=== PATIENT | female | born 1980 | race Caucasian/White ===

== ENCOUNTER → 2017-12-16 | Outpatient (CLI) | payer MEDICAID ==
--- NOTE | 2017-12-20 09:01 | MM ---
Reason for exam: screening (asymptomatic). Last mammogram was performed 1 year and 1 month ago. History: Patient had first child at age 29. Family history of breast cancer in mother, breast cancer in maternal grandmother, breast cancer in paternal grandmother, and breast cancer in 2 maternal aunts. Physical Findings: A clinical breast exam by your physician is recommended on an annual basis and results should be correlated with mammographic findings. MG 3D Screening Mammo W/Cad Bilateral CC and MLO view(s) were taken. Prior study comparison: November 17, 2016, mammogram, performed at [facility]. October 09, 2015, mammogram, performed at [facility]. There are scattered fibroglandular densities. New nodular density upper outer right breast 7cm from nipple. This finding is changed when compared with previous exams. ASSESSMENT: Incomplete: need additional imaging evaluation, BI-RAD 0 RECOMMENDATION: Special view mammogram of the right breast. If lesion persists on supplemental views, image directed ultrasound is recommended. [facility] will attempt to contact patient to return for supplemental views and ultrasound if indicated.
== END | disposition home or self-care (01) ==
LOC: RADMAMWWP 07:01
PROVIDERS: ATTEND Family Medicine
DX: Z12.31 Encounter for screening mammogram for malignant neoplasm of breast (principal)
CPT/HCPCS: 77063; 77067

== ENCOUNTER → 2018-01-02 | Outpatient (CLI) | payer MEDICAID ==
--- NOTE | 2018-01-02 11:53 | MM ---
Reason for exam: additional evaluation requested from abnormal screening. Last mammogram was performed 1 month ago. History: Patient had first child at age 29. Family history of breast cancer in mother, breast cancer in maternal grandmother, breast cancer in paternal grandmother, and breast cancer in 2 maternal aunts. Physical Findings: Nurse did not find any significant physical abnormalities on exam. MG 3D Work Up W/Cad RT Spot compression CC, spot compression MLO, and ML view(s) were taken of the right breast. Prior study comparison: December 16, 2017, bilateral MG 3d screening mammo w/cad. November 17, 2016, mammogram, performed at [facility]. The breast tissue is heterogeneously dense. This may lower the sensitivity of mammography. Nodule persists upper outer quadrant right breast 7cm from nipple. Ultrasound recommended. These results were verbally communicated with the patient and result sheet given to the patient on 01/02/18. ASSESSMENT: Incomplete: need additional imaging evaluation, BI-RAD 0 RECOMMENDATION: Ultrasound of the right breast.
--- NOTE | 2018-01-02 11:55 | USB ---
Reason for exam: additional evaluation requested from abnormal screening. History: Patient had first child at age 29. Family history of breast cancer in mother, breast cancer in maternal grandmother, breast cancer in paternal grandmother, and breast cancer in 2 maternal aunts. US Breast Workup Limited RT Right breast ultrasound demonstrates a 0.7 x 0.6 x 0.5cm irregular, mixed lesion at 8 o'clock and a 0.7 x 0.6 x 0.3cm oval, mixed lesion at 9 o'clock. These results were verbally communicated with the patient and result sheet given to the patient on 01/02/18. ASSESSMENT: Suspicious, BI-RAD 4 RECOMMENDATION: Aspiration and ultrasound core biopsy of the right breast. Called Dr. Toney with mammographic findings and has scheduled an appointment for the patient for 01/06/18 at 11:[address] Franks. PRELIMINARY REPORT CALLED AND FAXED TO DR. FRANKS ON 01/02/18.
== END | disposition home or self-care (01) ==
LOC: RADMAMWWP 06:57
PROVIDERS: ATTEND Family Medicine
DX: R92.8 Other abnormal and inconclusive findings on diagnostic imaging of breast (principal)
CPT/HCPCS: 77065; 76642; G0279

== ENCOUNTER → 2018-01-10 | Day surgery (SDC) | payer MEDICAID ==
[2018-01-10 13:35] VITALS: RESP 16; BMI 41.1
[2018-01-10 14:48] VITALS: BP 115/81; PULSE 76; TEMP 97.9
--- NOTE | 2018-01-10 14:51 | USB ---
EXAMINATION TYPE: US biopsy breast VAD RT, MG diagnostic mammo RT wo CAD DATE OF EXAM: 01/10/2018 CLINICAL HISTORY: R92.8 ABN MAMMO. Abnormal ultrasound. TECHNIQUE: Ultrasound guided core biopsy of right breast with clip placement and follow-up two-view mammogram. COMPARISON: Right breast mammogram and ultrasound January 02, 2018 and older studies. FINDINGS: The procedure of ultrasound guided core biopsy was explained to the patient. Benefits, alternatives, and risks were discussed. An informed consent was then obtained. The patient was placed in supine positioning for imaging and for the procedure. Preprocedure imaging redemonstrates slightly lobulated but well- defined hypoechoic anechoic lesion with increased through transmission and probable septations measuring up to 7 mm long axis at 8:00 position in the right breast. Smaller similar-appearing lesion is noted at 9:00 position in the deeper tissue. Larger lesion is targeted for sampling. The overlying skin was prepped and draped in usual sterile fashion. Lidocaine buffered with bicarbonate was used as anesthetic into the skin and subcutaneous tissue up to area of concern in the right breast. Under ultrasound guidance, a 12-gauge vacuum assisted biopsy gun device was used to obtain 3 core samples. Following this, a biopsy clip was left in lesion. Lesion became smaller upon sampling. The patient tolerated the procedure well without any immediate complication. The patient was kept in the radiology department for short stay after the procedure and then discharged home in stable condition. Postprocedure mammogram shows clip corresponding to area of mammogram concern without identifiable nodule. IMPRESSION: Successful, uncomplicated ultrasound guided core biopsy of area of concern in the right breast, full pathology results to follow. Low index of suspicion. Favor nonsimple cyst which diminished in size with sampling through the lesion. Pathology Results: Benign BREAST, RIGHT, CORE BIOPSY: FIBROCYSTIC CHANGES INCLUDING CYSTS, FIBROSIS AND ADENOSIS. Recommendation Follow up ultrasound of the right breast in 6 months. GENIA
== END ==
LOC: RADUSWWP 13:22
PROVIDERS: ATTEND Surgery
DX: N60.31 Fibrosclerosis of right breast (principal); N60.21 Fibroadenosis of right breast; R92.8 Other abnormal and inconclusive findings on diagnostic imaging of breast; Z88.6 Allergy status to analgesic agent; Z88.5 Allergy status to narcotic agent; Z91.09 Other allergy status, other than to drugs and biological substances
CPT/HCPCS: 88305; 77065; 19083; A4648; J2001

== ENCOUNTER 2018-01-16 14:39 | Inpatient (IN) | payer MEDICAID ==
[2018-01-16] MEDS ORDERED: KETOROLAC 30 MG/ML 1 ML VIAL IVP STA (14:55)
[2018-01-16] MEDS ORDERED: SODIUM CHLORIDE 0.9% 1,000 ML IV ONE (14:55)
[2018-01-16] MEDS ORDERED: MORPHINE SULFATE 4 MG/0.8 ML SYRINGE (INJ) IVP STA ×4 (14:55→17:30)
--- NOTE | 2018-01-16 14:59 | ED ---
Abdominal Pain HPI - General Chief Complaint: Abdominal Pain Stated Complaint: RLQ pain/Vomiting Time Seen by Provider: 01/16/18 14:49 Source: patient Mode of arrival: ambulatory Limitations: no limitations - History of Present Illness Initial Comments: Patient presents with a chief complaint of right-sided abdominal pain. The patient states that her pain is sharp in nature. Onset was about 12:00. Patient cannot identify any inciting incidences. There are no aggravating or alleviating factors. Timing is been constant. Patient admits to nausea and one episode of vomiting. Bowel movements have been normal. She denies dysuria , vaginal bleeding or vaginal discharge. Patient denies any history of kidney stone. She admits to having her gallbladder removed in the past. - Related Data Home Medications Medication Instructions Recorded Confirmed HYDROcodone/APAP 7.5-325MG [Parnell 1 tab PO BID PRN 01/09/18 01/16/18 7.5-325] Topiramate [Topamax] 50 mg PO BID 01/09/18 01/16/18 Butalb/APAP/Caff 50-325-40Mg 1 tab PO DAILY PRN 01/16/18 01/16/18 [Fioricet 50-325-40] Allergies Allergy/AdvReac Type Severity Reaction Status Date / Time adhesive Allergy Itching, Verified 01/16/18 15:18 REDNESS, BLISTERS propoxyphene Allergy Rash/Hives Verified 01/16/18 15:18 [From Darvocet-N] promethazine HCl AdvReac Hallucinati Verified 01/16/18 15:18 [From Phenergan] ons Review of Systems ROS Statement: Those systems with pertinent positive or pertinent negative responses have been documented in the HPI. ROS Other: All systems not noted in ROS Statement are negative. Gastrointestinal: Reports: abdominal pain, nausea, vomiting Musculoskeletal: Denies: back pain Past Medical History Past Medical History: No Reported History History of Any Multi-Drug Resistant Organisms: None Reported Past Surgical History: Section, Cholecystectomy, Tonsillectomy Additional Past Surgical History / Comment(s): x2 Past Anesthesia/Blood Transfusion Reactions: No Reported Reaction Past Psychological History: No Psychological Hx Reported Smoking Status: Former smoker Past Alcohol Use History: None Reported Past Drug Use History: None Reported General Exam Limitations: no limitations General appearance: alert, in no apparent distress Head exam: Present: atraumatic, normocephalic Eye exam: Present: normal appearance ENT exam: Present: mucous membranes moist Neck exam: Present: normal inspection Respiratory exam: Present: normal lung sounds bilaterally. Absent: respiratory distress Cardiovascular Exam: Present: regular rate, normal rhythm GI/Abdominal exam: Present: soft, tenderness (tenderness in the RLQ ). Absent: distended Rectal exam: Present: deferred Extremities exam: Present: normal inspection Back exam: Absent: CVA tenderness (R), CVA tenderness (L) Neurological exam: Present: alert, oriented X3 Psychiatric exam: Present: normal affect, normal mood Skin exam: Present: warm, dry, intact Course Vital Signs 01/16/18 01/16/18 01/16/18 14:46 16:44 17:18 Temperature 97.3 F L 97.2 F L Pulse Rate 66 56 L 72 Respiratory 20 20 18 Rate Blood Pressure 121/81 132/71 146/81 O2 Sat by Pulse 98 100 96 Oximetry Medical Decision Making - Medical Decision Making Patient presents with chief complaint of right lower quadrant abdominal pain. On initial evaluation, vital signs are stable, patient is [id number] distress secondary to discomfort. Patient is actively vomiting on initial evaluation. Patient has a history of cholecystectomy, considering kidney stone as etiology of patient's symptoms. Patient will be evaluated basic blood work, computed tomography scan of the abdomen and pelvis without contrast. She was given morphine, Toradol, and Zofran. 5:31 PM Lab evaluation of this patient is unremarkable except for hematuria. Computed tomography scan of the abdomen and pelvis shows an 11 mm x 8 mm kidney stone at the proximal ureter just past the ureteropelvic junction. On reexamination, patient states that she is still having severe pain and is nauseated. Patient has had several rounds of antiemetics and pain medications without resolution to an acceptable pain level. I discussed management options with this patient and discussed that the size of her kidney stone is less likely to pass on its own and may require urologic intervention. Patient would like to be admitted for pain and nausea control and IV hydration. I discussed this case with Dr. Deshpande who accepts admission of this patient. Care plan discussed again with the patient and family, she is agreeable. QUESTIONS ARE ANSWERED AT THIS TIME. - Lab Data Result diagrams: 01/16/18 15:05 01/16/18 15:05 Lab Results 01/16/18 01/16/18 01/16/18 Range/Units 15:05 15:05 15:05 WBC 11.2 H (3.8-10.6) k/uL RBC 4.94 (3.80-5.40) m/uL Hgb 14.7 (11.4-16.0) gm/dL Hct 43.6 (34.0-46.0) % MCV 88.2 (80.0-100.0) fL MCH 29.8 (25.0-35.0) pg MCHC 33.8 (31.0-37.0) g/dL RDW 13.3 (11.5-15.5) % Plt Count 300 (150-450) k/uL Neutrophils % 71 % Lymphocytes % 23 % Monocytes % 4 % Eosinophils % 1 % Basophils % 0 % Neutrophils # 7.9 H (1.3-7.7) k/uL Lymphocytes # 2.5 (1.0-4.8) k/uL Monocytes # 0.5 (0-1.0) k/uL Eosinophils # 0.1 (0-0.7) k/uL Basophils # 0.0 (0-0.2) k/uL Sodium 143 (137-145) mmol/L Potassium 4.5 (3.5-5.1) mmol/L Chloride 106 (98-107) mmol/L Carbon Dioxide 22 (22-30) mmol/L Anion Gap 15 mmol/L BUN 14 (7-17) mg/dL Creatinine 0.85 (0.52-1.04) mg/dL Est GFR (CKD-EPI)AfAm >90 (>60 ml/min/1.73 sqM) Est GFR (CKD-EPI)NonAf 87 (>60 ml/min/1.73 sqM) Glucose 102 H (74-99) mg/dL Calcium 9.8 (8.4-10.2) mg/dL Total Bilirubin 0.4 (0.2-1.3) mg/dL AST 17 (14-36) U/L ALT 33 (9-52) U/L Alkaline Phosphatase 87 (38-126) U/L Total Protein 7.6 (6.3-8.2) g/dL Albumin 4.7 (3.5-5.0) g/dL Lipase 62 (23-300) U/L HCG, Qual Not Detected Urine Color Yellow Urine Appearance Cloudy H (Clear) Urine pH 5.5 (5.0-8.0) Ur Specific Reagan 1.025 (1.001-1.035) Urine Protein 1+ H (Negative) Urine Glucose (UA) Negative (Negative) Urine Ketones Negative (Negative) Urine Blood Large H (Negative) Urine Nitrite Negative (Negative) Urine Bilirubin Negative (Negative) Urine Urobilinogen 2.0 (<2.0) mg/dL Ur Leukocyte Esterase Negative (Negative) Urine RBC 51 H (0-5) /hpf Urine WBC 2 (0-5) /hpf Ur Squamous Epith Cells 3 (0-4) /hpf Urine Bacteria Occasional H (None) /hpf Hyaline Casts 11 H (0-2) /lpf Granular Casts 6 (0) /lpf Urine Mucus Many H (None) /hpf Disposition Clinical Impression: Intractable pain, Nausea and vomiting, Ureterolithiasis Disposition: ADMITTED IP TO THIS [facility] Condition: Good Is patient prescribed a controlled substance at d/c from ED?: No Referrals: Tahir Toney MD [Primary Care Provider] - 1-2 days Decision to Admit Reason: Admit from EC - Out of Hospital Transfer - Req. Specs Out of Hospital Transfer - Requested Specifics: Other Non-Acute
[2018-01-16] MEDS: ONDANSETRON 4 MG/2 ML VIAL IVP STA (15:11)
[2018-01-16 15:21] LABS: Basophils % (A) 0 %; Eosinophils # (A) 0.1 k/uL (0-0.7); Eosinophils % (A) 1 %; HCT 43.6 % (34.0-46.0); HGB 14.7 gm/dL (11.4-16.0); Lymphocytes # (A) 2.5 k/uL (1.0-4.8); Lymphocytes % (A) 23 %; MCH 29.8 pg (25.0-35.0); MCHC 33.8 g/dL (31.0-37.0); MCV 88.2 fL (80.0-100.0); Mean Platelet Volume 6.6; Monocytes # (A) 0.5 k/uL (0-1.0); Monocytes % (A) 4 %; Neutrophils # (A) 7.9 k/uL (1.3-7.7); Neutrophils % (A) 71 %; Platelet Count 300 k/uL (150-450); RBC 4.94 m/uL (3.80-5.40); RDW 13.3 % (11.5-15.5); WBC 11.2 k/uL (3.8-10.6)
[2018-01-16 15:31] LABS: ALT 33 U/L (9-52); AST 17 U/L (14-36); Albumin 4.7 g/dL (3.5-5.0); Alkaline Phosphatase 87 U/L (38-126); Anion Gap 15 mmol/L; Blood Urea Nitrogen 14 mg/dL (7-17); Calcium 9.8 mg/dL (8.4-10.2); Carbon Dioxide 22 mmol/L (22-30); Chloride 106 mmol/L (98-107); Glucose 102 mg/dL (74-99); Lipase 62 U/L (23-300); Potassium 4.5 mmol/L (3.5-5.1); Sodium 143 mmol/L (137-145); Total Bilirubin 0.4 mg/dL (0.2-1.3); Total Protein 7.6 g/dL (6.3-8.2)
[2018-01-16] MEDS ORDERED: LORazepam 2 MG/ML INJ IV STA (15:48)
[2018-01-16 15:51] LABS: HCG,Qualitative Serum Not Detected
[2018-01-16 16:11] LABS: Appearance,Urine Cloudy (Clear); Bacteria,Urine Occasional /hpf; Bilirubin,Urine Negative (Negative); Blood,Urine Large (Negative); Color,Urine Yellow; Glucose,Urine (UA) Negative (Negative); Granular Casts,Urine 6 /lpf (0); Hyaline Casts,Urine 11 /lpf (0-2); Ketones,Urine Negative (Negative); Leukocyte Esterase,Urine Negative (Negative); Mucus,Urine Many /hpf; Nitrite,Urine Negative (Negative); PH, Urine 5.5 (5.0-8.0); Protein,Urine 1+ (Negative); RBC,Urine 51 /hpf (0-5); Specific Gravity,Urine 1.025 (1.001-1.035); Squamous Epithelial Cell,Urine 3 /hpf (0-4); WBC,Urine 2 /hpf (0-5)
--- NOTE | 2018-01-16 16:41 | CT ---
EXAMINATION TYPE: CT renal stones wo con DATE OF EXAM: 01/16/2018 COMPARISON: NONE HISTORY: 37-year-old female right lower quadrant pain with nausea TECHNIQUE: Contiguous axial scanning of the abdomen and pelvis without IV contrast. Coronal and sagit bernadine reconstructions performed. CT DLP: 1129 mGycm Automated exposure control for dose reduction was used. FINDINGS: Heart is normal size without pericardial effusion. Lung bases clear without pleural effusion. Noncontrast appearance of the liver, adrenal glands, spleen, and pancreas show no gross abnormality. Bile duct is dilated at 1.3 cm but shows normal distal tapering. Gallbladder surgically absent. Cluster of tightly packed calculi lower pole left kidney measuring up to 9 mm. There is [id number] hydronephrosis on the right with a 1.1 x 0.8 cm calculus in the upper right ureter just beyond the UPJ. No dilated small bowel, free fluid, or free air. Normal appendix. Mild stool burden. No pericolonic i nflammatory change. Bladder nondistended. Uterus and ovaries are visualized with follicular change. 1.9 cm dominant folli xavi or functional cyst on the right. No abnormal fluid collection in the pelvis or pelvic lymphadenop athy seen. Bones: No osseous destructive process. IMPRESSION: 1. A 1.1 X 0.8 CM CALCULUS IN THE UPPER RIGHT URETER WITH [id number] OBSTRUCTIVE UROPATHY. 2. A TIGHTLY PACKED CLUSTER OF NONOBSTRUCTIVE LEFT RENAL CALCULI MEASURING UP TO 9 MM. 3. BILE DUCT DILATED AT 1.3 CM. PROBABLY CHRONIC IN THIS PATIENT STATUS POST CHOLECYSTECTOMY. THIS CA N BE CORRELATED WITH ALKALINE PHOSPHATASE AND BILIRUBIN LEVELS.
[2018-01-16] MEDS ORDERED: NALOXONE 0.4 MG/ML 1 ML VIAL IV PRN (17:28)
[2018-01-16] MEDS: ONDANSETRON 4 MG/2 ML VIAL IVP PRN ×2 (18:21→22:07)
[2018-01-16] MEDS: oxyCODONE-APAP 5-325MG 1 EACH TAB PO PRN (19:37)
[2018-01-16] MEDS: SODIUM CHLORIDE 0.9% 1,000 ML IV SCH (20:42)
[2018-01-16] MEDS: MORPHINE SULFATE 4 MG/0.8 ML SYRINGE (INJ) IV PRN (22:06)
[2018-01-17] MEDS ORDERED: KETOROLAC 30 MG/ML 1 ML VIAL IVP STA (00:35)
[2018-01-17] MEDS ORDERED: ONDANSETRON 4 MG/2 ML VIAL IVP PRN (00:37)
[2018-01-17] MEDS: MORPHINE SULFATE 4 MG/0.8 ML SYRINGE (INJ) IV PRN ×3 (04:30→20:05)
[2018-01-17] MEDS: SODIUM CHLORIDE 0.9% 1,000 ML IV SCH ×2 (08:11→20:06)
[2018-01-17 08:46] LABS: Basophils % (A) 0 %; Eosinophils # (A) 0.1 k/uL (0-0.7); Eosinophils % (A) 1 %; HCT 37.7 % (34.0-46.0); HGB 12.6 gm/dL (11.4-16.0); Lymphocytes # (A) 1.4 k/uL (1.0-4.8); Lymphocytes % (A) 18 %; MCH 30.1 pg (25.0-35.0); MCHC 33.5 g/dL (31.0-37.0); MCV 89.8 fL (80.0-100.0); Mean Platelet Volume 6.5; Monocytes # (A) 0.4 k/uL (0-1.0); Monocytes % (A) 5 %; Neutrophils % (A) 75 %; Platelet Count 180 k/uL (150-450); RDW 13.2 % (11.5-15.5)
[2018-01-17 09:07] LABS: Anion Gap 11 mmol/L; Blood Urea Nitrogen 17 mg/dL (7-17); Calcium 8.6 mg/dL (8.4-10.2); Carbon Dioxide 22 mmol/L (22-30); Chloride 110 mmol/L (98-107); Glucose 85 mg/dL (74-99); Potassium 3.9 mmol/L (3.5-5.1); Sodium 143 mmol/L (137-145)
[2018-01-17] MEDS: KETOROLAC 30 MG/ML 1 ML VIAL IVP PRN ×3 (09:22→22:23)
--- NOTE | 2018-01-17 10:57 | P.GSHP ---
History of Present Illness H&P Date: 01/17/18 Chief Complaint: Right flank pain secondary to proximal right ureteral calculus The patient is a 37-year-old female who developed the abrupt onset of pain in her right abdomen yesterday at approximately noon. The pain was severe and was associated with nausea and vomiting. She presented to the emergency room for evaluation. White blood count was 11,200. Urinalysis showed microscopic hematuria. Computed tomography scan of the abdomen and pelvis identified a 7 x 10 mm proximal right ureteral calculus with moderate hydronephrosis. A collection of calculi or a trilobed calculus measuring approximately 9 mm in aggregate was noted in a lower pole calyx of the left kidney. The patient's pain was only partially controlled with IV narcotics and she was admitted for further evaluation. The patient has no previous history of urolithiasis. Her family history is significant in that an uncle and several other distant family members have had stones. The patient says she was treated for urinary tract infection approximately 6 weeks ago. She has had sporadic urinary tract infections in the past. She has had no recent gross hematuria or fever. Her pain is located in the right abdomen and right lower quadrant at the present time. - Constitutional Constitutional: Denies fever - Cardiovascular Cardiovascular: Reports palpitations, Denies high blood pressure, Denies lightheadedness, Denies shortness of breath - Respiratory Respiratory: Denies cough, Denies wheezing - Gastrointestinal Gastrointestinal: Reports as per HPI - Genitourinary (Female) Genitourinary: Reports as per HPI, Denies dysuria Past Medical History Past Medical History: Hearing Disorder / Deafness Additional Past Medical History / Comment(s): rt eat deafness, migraines History of Any Multi-Drug Resistant Organisms: None Reported Past Surgical History: Section, Cholecystectomy, Tonsillectomy, Tubal Ligation Additional Past Surgical History / Comment(s): x2, rt breast bx-neg Past Anesthesia/Blood Transfusion Reactions: No Reported Reaction Smoking Status: Former smoker - Past Family History Mother Family Medical History: Cancer Father Additional Family Medical History / Comment(s): born with only 1 kidney and had dillan leg anuerysms Medications and Allergies Home Medications Medication Instructions Recorded Confirmed Type HYDROcodone/APAP 7.5-325MG [Circle 1 tab PO BID PRN 01/09/18 01/16/18 History 7.5-325] Topiramate [Topamax] 50 mg PO BID 01/09/18 01/16/18 History Butalb/APAP/Caff 50-325-40Mg 1 tab PO DAILY PRN 01/16/18 01/16/18 History [Fioricet 50-325-40] Cyclobenzaprine [Flexeril] 10 mg PO HS 01/16/18 01/16/18 History Magnesium Oxide [Magox 400] 400 mg PO BID 01/16/18 01/16/18 History Allergies Allergy/AdvReac Type Severity Reaction Status Date / Time adhesive Allergy Itching, Verified 01/16/18 15:18 REDNESS, BLISTERS propoxyphene Allergy Rash/Hives Verified 01/16/18 15:18 [From Darvocet-N] promethazine HCl AdvReac Hallucinati Verified 01/16/18 15:18 [From Phenergan] ons Surgical - Exam Vital Signs Temp Pulse Resp BP Pulse Ox 97.3 F L 66 20 121/81 98 01/16/18 14:46 01/16/18 14:46 01/16/18 14:46 01/16/18 14:46 01/16/18 14:46 - General well developed, moderate distress, obese - Neck no masses, no lymphadectomy - Respiratory normal respiratory effort, clear to percussion - Cardiovascular Rhythm: regular Abnormal Heart Sounds: no systolic murmur - Abdomen Abdomen: tender (Suprapubic region and right lower quadrant), no organomegaly, no masses Results - Labs 01/17/18 08:10 01/17/18 08:10 Abnormal Lab Results - Last 24 Hours (Table) 01/16/18 01/16/18 01/16/18 Range/Units 15:05 15:05 15:05 WBC 11.2 H (3.8-10.6) k/uL Neutrophils # 7.9 H (1.3-7.7) k/uL Chloride (98-107) mmol/L Glucose 102 H (74-99) mg/dL Urine Appearance Cloudy H (Clear) Urine Protein 1+ H (Negative) Urine Blood Large H (Negative) Urine RBC 51 H (0-5) /hpf Urine Bacteria Occasional H (None) /hpf Hyaline Casts 11 H (0-2) /lpf Urine Mucus Many H (None) /hpf 01/17/18 Range/Units 08:10 WBC (3.8-10.6) k/uL Neutrophils # (1.3-7.7) k/uL Chloride 110 H (98-107) mmol/L Glucose (74-99) mg/dL Urine Appearance (Clear) Urine Protein (Negative) Urine Blood (Negative) Urine RBC (0-5) /hpf Urine Bacteria (None) /hpf Hyaline Casts (0-2) /lpf Urine Mucus (None) /hpf Diabetes panel 01/16/18 01/17/18 Range/Units 15:05 08:10 Sodium 143 143 (137-145) mmol/L Potassium 4.5 3.9 (3.5-5.1) mmol/L Chloride 106 110 H (98-107) mmol/L Carbon Dioxide 22 22 (22-30) mmol/L BUN 14 17 (7-17) mg/dL Creatinine 0.85 0.88 (0.52-1.04) mg/dL Glucose 102 H 85 (74-99) mg/dL Calcium 9.8 8.6 (8.4-10.2) mg/dL AST 17 (14-36) U/L ALT 33 (9-52) U/L Alkaline Phosphatase 87 (38-126) U/L Total Protein 7.6 (6.3-8.2) g/dL Albumin 4.7 (3.5-5.0) g/dL Calcium panel 01/16/18 01/17/18 Range/Units 15:05 08:10 Calcium 9.8 8.6 (8.4-10.2) mg/dL Albumin 4.7 (3.5-5.0) g/dL Pituitary panel 01/16/18 01/17/18 Range/Units 15:05 08:10 Sodium 143 143 (137-145) mmol/L Potassium 4.5 3.9 (3.5-5.1) mmol/L Chloride 106 110 H (98-107) mmol/L Carbon Dioxide 22 22 (22-30) mmol/L BUN 14 17 (7-17) mg/dL Creatinine 0.85 0.88 (0.52-1.04) mg/dL Glucose 102 H 85 (74-99) mg/dL Calcium 9.8 8.6 (8.4-10.2) mg/dL Adrenal panel 01/16/18 01/17/18 Range/Units 15:05 08:10 Sodium 143 143 (137-145) mmol/L Potassium 4.5 3.9 (3.5-5.1) mmol/L Chloride 106 110 H (98-107) mmol/L Carbon Dioxide 22 22 (22-30) mmol/L BUN 14 17 (7-17) mg/dL Creatinine 0.85 0.88 (0.52-1.04) mg/dL Glucose 102 H 85 (74-99) mg/dL Calcium 9.8 8.6 (8.4-10.2) mg/dL Total Bilirubin 0.4 (0.2-1.3) mg/dL AST 17 (14-36) U/L ALT 33 (9-52) U/L Alkaline Phosphatase 87 (38-126) U/L Total Protein 7.6 (6.3-8.2) g/dL Albumin 4.7 (3.5-5.0) g/dL Assessment and Plan (1) Right ureteral calculus Narrative/Plan: In view of the size and location of the patient's proximal right ureteral calculus it is unlikely that the calculus will pass spontaneously. I discussed temporary placement of a right double-J catheter to relieve the patient's pain with eventual treatment via either ureteroscopy with lithotripsy or ESWL. The procedure and risks of the double-J catheter were reviewed and the patient has no further questions. Current Visit: Yes Status: Acute Code(s): N20.1 - CALCULUS OF URETER SNOMED Code(s): 81792505 (2) Intractable pain Current Visit: Yes Status: Acute Code(s): R52 - PAIN, UNSPECIFIED SNOMED Code(s): 31648685
[2018-01-17] MEDS ORDERED: IV FLUID CONTINUATION 1,000 ML IV ONE (11:32)
[2018-01-17] MEDS: ONDANSETRON 4 MG/2 ML VIAL IVP STA (11:36)
[2018-01-17 11:41] LABS: Glucose,Whole Blood 85 mg/dL (75-99)
[2018-01-17] MEDS ORDERED: PROPOFOL 10 MG/ML 20 ML VIAL IV ONE (11:54)
[2018-01-17] MEDS ORDERED: fentaNYL (PF) 50 MCG/ML 2 ML AMP ONE (11:54)
[2018-01-17] MEDS ORDERED: LIDOCAINE 1% INJ 10MG/ML (20 ML MDV) ONE (11:54)
[2018-01-17] MEDS ORDERED: MIDAZOLAM 2 MG/2 ML VIAL ONE (11:54)
--- NOTE | 2018-01-17 12:28 | P.OP ---
Date of Procedure: 01/17/18 Preoperative Diagnosis: Proximal right ureteral calculus Postoperative Diagnosis: Proximal right ureteral calculus Procedure(s) Performed: Cystoscopy with placement of right double-J catheter Implants: 6-Cambodian by 24 cm double-J catheter Anesthesia: MAC Surgeon: Willie Deshpande Estimated Blood Loss (ml): 0 Pathology: none sent Condition: stable Disposition: PACU Indications for Procedure: The patient is a 37-year-old female admitted yesterday for evaluation of severe right flank pain secondary to a 7 x 10 mm proximal right ureteral calculus. The patient's pain has been only partially controllable with IV narcotics and ketorolac. Placement of a double-J catheter is planned for relief of the pain. Description of Procedure: The patient was taken to the operating suite and placed in the dorsal lithotomy position on the fluoroscopy table. Sequential pneumatic compression stockings were applied to the lower legs. Intravenous sedation was given. The perineum was prepped with Betadine soap, painted with Betadine solution and draped in a sterile fashion. The external genitalia and urethral meatus were unremarkable. The 22-Cambodian cystoscope sheath with obturator was passed through the urethra into the bladder. The bladder was examined using the 30 lens. Both ureteral orifice ease were of normal location and configuration. The bladder was free of tumor, foreign body and diverticulum. The calculus in the proximal right ureter was identified via fluoroscopy. A 0.035 straight Glidewire was advanced through the right ureteral orifice, beyond the calculus and into the region of the right renal pelvis. A 6-Cambodian by 24 cm double-J catheter was then advanced over the Glidewire and positioned so that the proximal end coiled in the region of the renal pelvis and the distal end coiled in the bladder. It was initially difficult to advance the which a catheter beyond the calculus as it appeared that the calculus was impacted. After confirming correct position of the double-J catheter the Glidewire was withdrawn and the cystoscope was removed. The patient tolerated procedure well. She may be discharged later in the day if she is comfortable.
[2018-01-17 12:32] VITALS: RESP 16
[2018-01-17] MEDS ORDERED: MORPHINE SULFATE 4MG/4ML SYRG IVP ONE (12:50)
--- NOTE | 2018-01-17 13:24 | FL ---
Fluoroscopy History: RT KIDNEY STONE AND STENT PLACEMENT 7 sec fl, 1 film scanned
[2018-01-17] MEDS: oxyCODONE-APAP 5-325MG 1 EACH TAB PO PRN (15:29)
[2018-01-17] MEDS ORDERED: BUTALB/APAP/CAFF 50-325-40MG TAB PO PRN (16:50)
[2018-01-17] MEDS: TOPIRAMATE 25 MG TAB PO SCH (20:06)
[2018-01-18] MEDS: KETOROLAC 30 MG/ML 1 ML VIAL IVP PRN (05:02)
--- NOTE | 2018-01-18 07:50 | P.DS ---
Providers Date of admission: 01/16/18 17:28 Expected date of discharge: 01/18/18 Attending physician: Willie Deshpande Primary care physician: Tahir Milligan Kut - Discharge Diagnosis(es) (1) Right ureteral calculus The patient is a 37-year-old female admitted for pain control secondary to a 7 x 10 mm proximal right ureteral calculus which had become impacted in the proximal right ureter. The patient was admitted through the emergency room on the evening of 01/16. Her pain persisted and cystoscopy with placement of a right double-J catheter was performed under intravenous sedation on 01/17. She continued to have some pain through the afternoon and evening but by 01/18 was much more comfortable. The patient was afebrile and discharged on the morning of 01/18. It is anticipated that she will have elective treatment of the proximal right ureteral calculus via either ESWL or ureteroscopy with lithotripsy. Both procedures were discussed with the patient but at the time of discharge a decision as to the type of treatment had not yet been made. Current Visit: Yes Status: Acute (2) Intractable pain Current Visit: Yes Status: Acute Patient Condition at Discharge: Good Plan - Discharge Summary Discharge Rx Participant: Yes New Discharge Prescriptions: No Action HYDROcodone/APAP 7.5-325MG [[place] 7.5-325] 1 tab PO BID PRN PRN Reason: Pain Topiramate [Topamax] 50 mg PO BID Butalb/APAP/Caff 50-325-40Mg [Fioricet 50-325-40] 1 tab PO DAILY PRN PRN Reason: Pain Magnesium Oxide [Magox 400] 400 mg PO BID Cyclobenzaprine [Flexeril] 10 mg PO HS Discharge Medication List HYDROcodone/APAP 7.5-325MG [[place] 7.5-325] 1 tab PO BID PRN 01/09/18 [History] Topiramate [Topamax] 50 mg PO BID 01/09/18 [History] Butalb/APAP/Caff 50-325-40Mg [Fioricet 50-325-40] 1 tab PO DAILY PRN 01/16/18 [ History] Cyclobenzaprine [Flexeril] 10 mg PO HS 01/16/18 [History] Magnesium Oxide [Magox 400] 400 mg PO BID 01/16/18 [History] Follow up Appointment(s)/Referral(s): Tahir Toney MD [Primary Care Provider] - 1-2 days Willie Deshpande MD [STAFF PHYSICIAN] - 1 Week
[2018-01-18 08:36] VITALS: BP 101/61; PULSE 66; TEMP 98.1
[2018-01-18] MEDS: TOPIRAMATE 25 MG TAB PO SCH (09:07)
[2018-01-18] MEDS: SODIUM CHLORIDE 0.9% 1,000 ML IV SCH (09:07)
== END 2018-01-18 10:19 | disposition home or self-care (01) | DRG 694 ==
LOC: EC 14:39 → 4MS4W 17:28
PROVIDERS: ADMIT Urology; ATTEND Urology
PROC: 0T768DZ Dilation of Right Ureter with Intraluminal Device, Via Natural or Artificial Opening Endoscopic (ICD-10-PCS; principal; 2018-01-17 10:35)
DX: N13.2 Hydronephrosis with renal and ureteral calculous obstruction (principal); H91.90 Unspecified hearing loss, unspecified ear; R31.29 Other microscopic hematuria; R52 Pain, unspecified; Z87.440 Personal history of urinary (tract) infections; Z86.69 Personal history of other diseases of the nervous system and sense organs; Z87.891 Personal history of nicotine dependence; Z79.899 Other long term (current) drug therapy; Z88.8 Allergy status to other drugs, medicaments and biological substances; Z91.048 Other nonmedicinal substance allergy status; Z79.891 Long term (current) use of opiate analgesic; Z90.49 Acquired absence of other specified parts of digestive tract; Z90.89 Acquired absence of other organs
CPT/HCPCS: 36415; 74150; 80048; 80053; 81001; 81025; 83690; 84703; 85025; 96361; 96374; 96375; 96376; 99285

== ENCOUNTER 2018-01-27 10:35 | Emergency (ER) | payer MEDICAID ==
[2018-01-27 10:58] VITALS: RESP 16
[2018-01-27] MEDS ORDERED: ONDANSETRON 4 MG/2 ML VIAL IVP STA (11:23)
[2018-01-27] MEDS ORDERED: KETOROLAC 30 MG/ML 1 ML VIAL IVP STA (11:23)
[2018-01-27] MEDS ORDERED: SODIUM CHLORIDE 0.9% 1,000 ML IV STA (11:23)
[2018-01-27] MEDS ORDERED: SODIUM CHLORIDE 0.9% 500 ML IV STA (11:23)
[2018-01-27] MEDS: MORPHINE SULFATE 4 MG/ML SYRINGE IVP STA ×2 (12:02→14:01)
[2018-01-27 12:11] LABS: Basophils % (A) 0 %; Eosinophils # (A) 0.2 k/uL (0-0.7); Eosinophils % (A) 3 %; HCT 38.4 % (34.0-46.0); HGB 13.5 gm/dL (11.4-16.0); Lymphocytes # (A) 1.5 k/uL (1.0-4.8); Lymphocytes % (A) 20 %; MCH 30.2 pg (25.0-35.0); MCHC 35.1 g/dL (31.0-37.0); Mean Platelet Volume 6.5; Monocytes # (A) 0.3 k/uL (0-1.0); Monocytes % (A) 4 %; Neutrophils # (A) 5.5 k/uL (1.3-7.7); Neutrophils % (A) 72 %; Platelet Count 205 k/uL (150-450); RBC 4.47 m/uL (3.80-5.40); RDW 13.3 % (11.5-15.5); WBC 7.6 k/uL (3.8-10.6)
[2018-01-27 12:18] LABS: Appearance,Urine Cloudy (Clear); Bacteria,Urine Many /hpf; Bilirubin,Urine Negative (Negative); Blood,Urine Large (Negative); Color,Urine Yellow; Glucose,Urine (UA) Negative (Negative); Ketones,Urine Negative (Negative); Leukocyte Esterase,Urine Large (Negative); Mucus,Urine Rare /hpf; Nitrite,Urine Negative (Negative); PH, Urine 5.5 (5.0-8.0); Protein,Urine 1+ (Negative); RBC,Urine 165 /hpf (0-5); Specific Gravity,Urine 1.011 (1.001-1.035); Squamous Epithelial Cell,Urine 18 /hpf (0-4); Urobilinogen,Urine <2.0 mg/dL (<2.0); WBC,Urine 22 /hpf (0-5)
--- NOTE | 2018-01-27 12:28 | ED ---
General Adult HPI - General Chief complaint: Abdominal Pain Stated complaint: Abdominal pain Time Seen by Provider: 01/27/18 11:01 Source: patient, RN notes reviewed, old records reviewed Mode of arrival: ambulatory Limitations: no limitations - History of Present Illness Initial comments: This is a 37-year-old female to the ER for evaluation. She presents today for evaluation regards to severe right sided right flank pain. History of kidney stones recent lithotripsy. Patient denies any other complaints. She states the pain has not gone away despite surgery. She has been difficulty with urination and is having blood in her urine as well. No fevers - Related Data Home Medications Medication Instructions Recorded Confirmed HYDROcodone/APAP 7.5-325MG [[place] 1 tab PO QID PRN 01/09/18 01/27/18 7.5-325] Butalb/APAP/Caff 50-325-40Mg 1 tab PO DAILY PRN 01/16/18 01/27/18 [Fioricet 50-325-40] Tamsulosin [Flomax] 0.4 mg PO DAILY 01/27/18 01/27/18 Allergies Allergy/AdvReac Type Severity Reaction Status Date / Time adhesive Allergy Itching, Verified 01/27/18 11:26 REDNESS, BLISTERS propoxyphene Allergy Rash/Hives Verified 01/27/18 11:26 [From Darvocet-N] promethazine HCl AdvReac Hallucinati Verified 01/27/18 11:26 [From Phenergan] ons Review of Systems ROS Statement: Those systems with pertinent positive or pertinent negative responses have been documented in the HPI. ROS Other: All systems not noted in ROS Statement are negative. Past Medical History Past Medical History: Hearing Disorder / Deafness Additional Past Medical History / Comment(s): rt eat deafness, migraines History of Any Multi-Drug Resistant Organisms: None Reported Past Surgical History: Section, Cholecystectomy, Tonsillectomy, Tubal Ligation Additional Past Surgical History / Comment(s): x2, rt breast bx-neg Past Anesthesia/Blood Transfusion Reactions: No Reported Reaction Past Psychological History: No Psychological Hx Reported Smoking Status: Former smoker - Past Family History Mother Family Medical History: Cancer Father Additional Family Medical History / Comment(s): born with only 1 kidney and had dillan leg anuerysms General Exam Limitations: no limitations General appearance: alert, in no apparent distress Head exam: Present: atraumatic, normocephalic, normal inspection Eye exam: Present: normal appearance, PERRL, EOMI. Absent: scleral icterus, conjunctival injection, periorbital swelling ENT exam: Present: normal exam, mucous membranes moist Neck exam: Present: normal inspection. Absent: tenderness, meningismus, lymphadenopathy Respiratory exam: Present: normal lung sounds bilaterally. Absent: respiratory distress, wheezes, rales, rhonchi, stridor Cardiovascular Exam: Present: regular rate, normal rhythm, normal heart sounds. Absent: systolic murmur, diastolic murmur, rubs, gallop, clicks GI/Abdominal exam: Present: soft, normal bowel sounds. Absent: distended, tenderness, guarding, rebound, rigid Extremities exam: Present: normal inspection, full ROM, normal capillary refill. Absent: tenderness, pedal edema, joint swelling, calf tenderness Back exam: Present: normal inspection Neurological exam: Present: alert, oriented X3, CN II-XII intact Psychiatric exam: Present: normal affect, normal mood Skin exam: Present: warm, dry, intact, normal color. Absent: rash Course Vital Signs 01/27/18 10:56 Temperature 97.9 F Pulse Rate 62 Respiratory 16 Rate Blood Pressure 129/80 O2 Sat by Pulse 97 Oximetry Medical Decision Making - Medical Decision Making 37 male to the ED co significant pain, kidney stone and post procedure pain, pain is controlled can be discharged home - Lab Data Result diagrams: 01/27/18 11:58 01/27/18 11:58 Lab Results 01/27/18 01/27/18 01/27/18 Range/Units 11:58 11:58 11:58 WBC 7.6 (3.8-10.6) k/uL RBC 4.47 (3.80-5.40) m/uL Hgb 13.5 (11.4-16.0) gm/dL Hct 38.4 (34.0-46.0) % MCV 86.0 (80.0-100.0) fL MCH 30.2 (25.0-35.0) pg MCHC 35.1 (31.0-37.0) g/dL RDW 13.3 (11.5-15.5) % Plt Count 205 (150-450) k/uL Neutrophils % 72 % Lymphocytes % 20 % Monocytes % 4 % Eosinophils % 3 % Basophils % 0 % Neutrophils # 5.5 (1.3-7.7) k/uL Lymphocytes # 1.5 (1.0-4.8) k/uL Monocytes # 0.3 (0-1.0) k/uL Eosinophils # 0.2 (0-0.7) k/uL Basophils # 0.0 (0-0.2) k/uL Sodium 142 (137-145) mmol/L Potassium 3.9 (3.5-5.1) mmol/L Chloride 106 (98-107) mmol/L Carbon Dioxide 25 (22-30) mmol/L Anion Gap 11 mmol/L BUN 13 (7-17) mg/dL Creatinine 0.70 (0.52-1.04) mg/dL Est GFR (CKD-EPI)AfAm >90 (>60 ml/min/1.73 sqM) Est GFR (CKD-EPI)NonAf >90 (>60 ml/min/1.73 sqM) Glucose 99 (74-99) mg/dL Calcium 9.0 (8.4-10.2) mg/dL Total Bilirubin 0.2 (0.2-1.3) mg/dL AST 17 (14-36) U/L ALT 18 (9-52) U/L Alkaline Phosphatase 59 (38-126) U/L Total Protein 6.2 L (6.3-8.2) g/dL Albumin 3.7 (3.5-5.0) g/dL Amylase 42 (30-110) U/L Lipase 41 (23-300) U/L Urine Color Urine Appearance (Clear) Urine pH (5.0-8.0) Ur Specific [place] (1.001-1.035) Urine Protein (Negative) Urine Glucose (UA) (Negative) Urine Ketones (Negative) Urine Blood (Negative) Urine Nitrite (Negative) Urine Bilirubin (Negative) Urine Urobilinogen (<2.0) mg/dL Ur Leukocyte Esterase (Negative) Urine RBC (0-5) /hpf Urine WBC (0-5) /hpf Ur Squamous Epith Cells (0-4) /hpf Urine Bacteria (None) /hpf Urine Mucus (None) /hpf Urine HCG, Qual Not Detected (Not Detectd) 01/27/18 Range/Units 11:58 WBC (3.8-10.6) k/uL RBC (3.80-5.40) m/uL Hgb (11.4-16.0) gm/dL Hct (34.0-46.0) % MCV (80.0-100.0) fL MCH (25.0-35.0) pg MCHC (31.0-37.0) g/dL RDW (11.5-15.5) % Plt Count (150-450) k/uL Neutrophils % % Lymphocytes % % Monocytes % % Eosinophils % % Basophils % % Neutrophils # (1.3-7.7) k/uL Lymphocytes # (1.0-4.8) k/uL Monocytes # (0-1.0) k/uL Eosinophils # (0-0.7) k/uL Basophils # (0-0.2) k/uL Sodium (137-145) mmol/L Potassium (3.5-5.1) mmol/L Chloride (98-107) mmol/L Carbon Dioxide (22-30) mmol/L Anion Gap mmol/L BUN (7-17) mg/dL Creatinine (0.52-1.04) mg/dL Est GFR (CKD-EPI)AfAm (>60 ml/min/1.73 sqM) Est GFR (CKD-EPI)NonAf (>60 ml/min/1.73 sqM) Glucose (74-99) mg/dL Calcium (8.4-10.2) mg/dL Total Bilirubin (0.2-1.3) mg/dL AST (14-36) U/L ALT (9-52) U/L Alkaline Phosphatase (38-126) U/L Total Protein (6.3-8.2) g/dL Albumin (3.5-5.0) g/dL Amylase (30-110) U/L Lipase (23-300) U/L Urine Color Yellow Urine Appearance Cloudy H (Clear) Urine pH 5.5 (5.0-8.0) Ur Specific [place] 1.011 (1.001-1.035) Urine Protein 1+ H (Negative) Urine Glucose (UA) Negative (Negative) Urine Ketones Negative (Negative) Urine Blood Large H (Negative) Urine Nitrite Negative (Negative) Urine Bilirubin Negative (Negative) Urine Urobilinogen <2.0 (<2.0) mg/dL Ur Leukocyte Esterase Large H (Negative) Urine RBC 165 H (0-5) /hpf Urine WBC 22 H (0-5) /hpf Ur Squamous Epith Cells 18 H (0-4) /hpf Urine Bacteria Many H (None) /hpf Urine Mucus Rare H (None) /hpf Urine HCG, Qual (Not Detectd) - Radiology Data Radiology results: report reviewed (US and XR kub is unremarkalbe), image reviewed Disposition Clinical Impression: Abdominal pain, Intractable pain, Ureterolithiasis Disposition: HOME SELF-CARE Condition: Good Instructions: Abdominal Pain (ED) Is patient prescribed a controlled substance at d/c from ED?: No Referrals: Tahir Toney MD [Primary Care Provider] - 1-2 days
[2018-01-27 12:33] LABS: ALT 18 U/L (9-52); AST 17 U/L (14-36); Albumin 3.7 g/dL (3.5-5.0); Alkaline Phosphatase 59 U/L (38-126); Amylase 42 U/L (30-110); Anion Gap 11 mmol/L; Blood Urea Nitrogen 13 mg/dL (7-17); Carbon Dioxide 25 mmol/L (22-30); Chloride 106 mmol/L (98-107); Glucose 99 mg/dL (74-99); Lipase 41 U/L (23-300); Potassium 3.9 mmol/L (3.5-5.1); Sodium 142 mmol/L (137-145); Total Bilirubin 0.2 mg/dL (0.2-1.3); Total Protein 6.2 g/dL (6.3-8.2)
--- NOTE | 2018-01-27 12:51 | US ---
EXAMINATION TYPE: US renals and bladder DATE OF EXAM: 01/27/2018 COMPARISON: CT renal stones January 16, 2018 CLINICAL HISTORY: Pain. recent double J cath placement for stones, lithotripsy through ureter on the right, h/o bilat nephrolithiasis, right side pain EXAM MEASUREMENTS: Right Kidney: 10.5 x 5.3 x 5.4 cm Left Kidney: 10.8 x 5.0 x 5.6 cm Right Kidney: moderate hydronephrosis seen Left Kidney: 1.4cm single versus cluster of renal stones Bladder: wnl Bilateral Jets seen: no No suspicious solid or cystic masses are identified on images saved. The urinary bladder is not gre atly distended. Bilateral ureteral jets are not seen. IMPRESSION: Stable moderate right-sided hydronephrosis not significantly changed from recent CT where there was o bstructing 11 mm proximal ureter calculus. There is redemonstration of cluster of calculi or single l arge calculus lower pole level left kidney without left-sided hydronephrosis. No significant change f rom recent CT.
--- NOTE | 2018-01-27 13:01 | XR ---
EXAMINATION TYPE: XR KUB DATE OF EXAM: 01/27/2018 COMPARISON: 01/27/18 HISTORY: Pain TECHNIQUE: Single supine KUB image of the abdomen is obtained FINDINGS: Small bowel demonstrates no evidence for dilatation or air fluid levels. Gas and fecal material is seen in non-distended colon. No convincing evidence for pneumoperitoneum. Calcifications lower pole left kidney. The lung bases are clear. The osseous structures are intact. IMPRESSION: 1. Overall nonobstructive bowel gas pattern. 2. Calcifications lower pole left kidney.
[2018-01-27 14:16] VITALS: BP 109/66; PULSE 63; TEMP 98.6
== END 2018-01-27 14:24 | disposition home or self-care (01) ==
LOC: EC 10:35
DX: N20.1 Calculus of ureter (principal); H91.91 Unspecified hearing loss, right ear; Z87.891 Personal history of nicotine dependence; Z79.899 Other long term (current) drug therapy; Z88.5 Allergy status to narcotic agent; Z88.8 Allergy status to other drugs, medicaments and biological substances; Z91.09 Other allergy status, other than to drugs and biological substances; Z90.49 Acquired absence of other specified parts of digestive tract; Z84.1 Family history of disorders of kidney and ureter
CPT/HCPCS: 36415; 80053; 82150; 83690; 85025; 81001; 81025; 87086; 74018; 76770; 99285; 96374; 96375 ×2; 96376; 96361; J2270; J2405; J1885

== ENCOUNTER → 2018-05-11 | Outpatient (CLI) | payer MEDICAID | END | disposition home or self-care (01) | LOC: LABWHC1 11:24 | PROVIDERS: ATTEND Family Medicine | DX: Z53.9 Procedure and treatment not carried out, unspecified reason (principal) ==

== ENCOUNTER → 2018-06-22 | Outpatient (CLI) | payer MEDICAID ==
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
== END | disposition home or self-care (01) ==
LOC: RADXRMAIN 11:36
PROVIDERS: ATTEND Family Medicine
DX: M79.642 Pain in left hand (principal); M79.89 Other specified soft tissue disorders

== ENCOUNTER → 2018-08-29 | Outpatient (CLI) | payer MEDICAID ==
--- NOTE | 2018-08-29 10:21 | MM ---
Reason for exam: additional evaluation requested from prior study. Last mammogram was performed 8 months ago. History: Patient had first child at age 29. Family history of breast cancer in mother, breast cancer in maternal grandmother, breast cancer in paternal grandmother, and breast cancer in 2 maternal aunts. Benign US biopsy breast VAD RT of the right breast, January 10, 2018. Physical Findings: Nurse did not find any significant physical abnormalities on exam. MG 3D Diag Mammo W/Cad RT CC and MLO view(s) were taken of the right breast. Prior study comparison: January 10, 2018, right breast MG diagnostic mammo RT wo CAD. January 02, 2018, right breast MG 3d work up w/cad RT. There are scattered fibroglandular densities. No significant new findings when compared with previous films. These results were verbally communicated with the patient and result sheet given to the patient on 08/29/18. ASSESSMENT: Benign, BI-RAD 2 RECOMMENDATION: Return to routine screening mammogram schedule for both breasts. Back on schedule.
== END | disposition home or self-care (01) ==
LOC: RADMAMWWP 08:49
PROVIDERS: ATTEND Family Medicine
DX: R92.8 Other abnormal and inconclusive findings on diagnostic imaging of breast (principal)
CPT/HCPCS: 77061; 77065

== ENCOUNTER → 2019-03-07 | Outpatient (CLI) | payer MEDICAID ==
[2019-03-07 11:51] LABS: African American GFR (CKD) 125.6 (60.0-200.0); Anion Gap 4.2 mmol/L (4.00-12.00); Carbon Dioxide 28.8 mmol/L (21.6-31.8); Potassium 4.8 mmol/L (3.5-5.5)
== END | disposition home or self-care (01) ==
LOC: LABWHC1 06:45
PROVIDERS: ATTEND Family Medicine
DX: R60.9 Edema, unspecified (principal)
CPT/HCPCS: 36415; 80051; 82565; 84520

== ENCOUNTER → 2019-03-14 | Outpatient (CLI) | payer MEDICAID ==
[2019-03-14 16:52] LABS: African American GFR (CKD) 106.1 (60.0-200.0); Anion Gap 7.1 mmol/L (4.00-12.00); Carbon Dioxide 28.9 mmol/L (21.6-31.8); Potassium 4.5 mmol/L (3.5-5.5)
== END | disposition home or self-care (01) ==
LOC: LABWHC1 08:13
PROVIDERS: ATTEND Family Medicine
DX: R60.9 Edema, unspecified (principal)
CPT/HCPCS: 36415; 80051; 82565; 84520

== ENCOUNTER → 2019-09-04 | Outpatient (CLI) | payer MEDICAID ==
--- NOTE | 2019-09-06 13:55 | MM ---
Reason for exam: screening (asymptomatic). Last mammogram was performed 1 year ago. History: Patient had first child at age 29. Family history of breast cancer in mother, breast cancer in maternal grandmother, breast cancer in paternal grandmother, and breast cancer in 2 maternal aunts. Benign US biopsy breast VAD RT of the right breast, January 10, 2018. Took hormonal contraceptives for 25 years. Physical Findings: A clinical breast exam by your physician is recommended on an annual basis and results should be correlated with mammographic findings. MG 3D Screening Mammo W/Cad Bilateral CC and MLO view(s) were taken. Prior study comparison: August 29, 2018, right breast MG 3d diag mammo w/cad RT. January 10, 2018, right breast MG diagnostic mammo RT wo CAD. The breast tissue is heterogeneously dense. This may lower the sensitivity of mammography. There is no discrete abnormality. No significant changes when compared with prior studies. ASSESSMENT: Negative, BI-RAD 1 RECOMMENDATION: Routine screening mammogram of both breasts in 1 year.
== END | disposition home or self-care (01) ==
LOC: RADMAMWWP 10:55
PROVIDERS: ATTEND Family Medicine
DX: Z12.31 Encounter for screening mammogram for malignant neoplasm of breast (principal)
CPT/HCPCS: 77063; 77067

== ENCOUNTER → 2020-01-07 | Outpatient (CLI) | payer MEDICAID ==
--- NOTE | 2020-01-07 10:50 | XR ---
EXAMINATION TYPE: XR ankle limited RT, XR foot limited RT DATE OF EXAM: 01/07/2020 CLINICAL HISTORY: pain TECHNIQUE: AP and lateral views of the right ankle and right wrist. COMPARISON: None. FINDINGS: Minimally displaced fracture noted to involve the neck and head of the proximal phalanx rig ht fifth toe. Displacement of 1 mm. No additional fracture seen. Mild soft tissue swelling noted. Ankle mortise is intact. No fracture seen about the ankle. IMPRESSION: Minimally displaced fracture noted to involve the neck and head of the proximal phalanx right fifth t oe. ICD 10 closed FRACTURE, INITIAL EVALUATION
== END | disposition home or self-care (01) ==
LOC: RADXRMAIN 10:27
PROVIDERS: ATTEND Family Medicine
DX: S92.511A Displaced fracture of proximal phalanx of right lesser toe(s), initial encounter for closed fracture (principal)

== ENCOUNTER 2020-09-29 10:48 | Emergency (ER) | payer MEDICAID ==
[2020-09-29 10:51] VITALS: RESP 18; TEMP 98.5
[2020-09-29 11:04] LABS: Glucose,Whole Blood 106 mg/dL (75-99)
[2020-09-29 11:25] LABS: Basophils # (A) 0.1 k/uL (0-0.2); Basophils % (A) 1 %; Eosinophils # (A) 0.2 k/uL (0-0.7); Eosinophils % (A) 2 %; HCT 49.5 % (34.0-46.0); HGB 17.2 gm/dL (11.4-16.0); Lymphocytes # (A) 1.9 k/uL (1.0-4.8); Lymphocytes % (A) 19 %; MCH 30.3 pg (25.0-35.0); MCHC 34.7 g/dL (31.0-37.0); MCV 87.2 fL (80.0-100.0); Mean Platelet Volume 6.9; Monocytes # (A) 0.5 k/uL (0-1.0); Monocytes % (A) 5 %; Neutrophils # (A) 7.2 k/uL (1.3-7.7); Neutrophils % (A) 72 %; Platelet Count 267 k/uL (150-450); RBC 5.68 m/uL (3.80-5.40); RDW 13.3 % (11.5-15.5)
[2020-09-29 11:35] LABS: Calcium 9.3 mg/dL (8.4-10.2); Magnesium 1.8 mg/dL (1.6-2.3); Potassium 4.8 mmol/L (3.5-5.1); Total Bilirubin 0.5 mg/dL (0.2-1.3); Total Protein 6.8 g/dL (6.3-8.2)
--- NOTE | 2020-09-29 11:42 | XR ---
EXAMINATION TYPE: XR chest 2V DATE OF EXAM: 09/29/2020 COMPARISON: NONE HISTORY: Syncope and weakness. TECHNIQUE: Frontal and lateral views of the chest are obtained. FINDINGS: There is chronic parenchymal changes without suspicious focal air space opacity, pleural e ffusion, or pneumothorax seen. The cardiac silhouette size is within normal limits. The osseous st ructures are intact. IMPRESSION: No acute cardiopulmonary process.
[2020-09-29] MEDS ORDERED: SODIUM CHLORIDE 0.9% 1,000 ML IV SCH (11:45)
[2020-09-29] MEDS ORDERED: SODIUM CHLORIDE 0.9% 1,000 ML IV ONE (11:45)
[2020-09-29 11:47] LABS: Prothrombin Time 10.2 sec (9.0-12.0)
--- NOTE | 2020-09-29 12:14 | ED ---
General Adult HPI - General Chief complaint: Syncope Stated complaint: syncope Time Seen by Provider: 09/29/20 10:53 Source: patient Mode of arrival: ambulatory Limitations: no limitations - History of Present Illness Initial comments: 40yo female presenting for cc presyncope. 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 She states that she felt like she was going to blackout her vision began to change. Patient states that she went and sat down the hallway was able to stop herself from passing out. Patient denied any chest pain shortness of breath headaches nausea vomiting cough congestion fevers upper respiratory symptoms dysuria urgency frequency abdominal pain back pain patient denies any known cardiac history she denied palpitations she denied experiencing this in the past patient states that she has had history as a child of hypoglycemia was not sure if this is related she states she did eat breakfast this morning. Patient states she has been drinking water. Patient denies any history of sudden cardiac within the family. Patient has no additional complaints upon arrival she states she was worked up because she was scared otherwise she has no complaints - Related Data Home Medications Medication Instructions Recorded Confirmed HYDROcodone/APAP 7.5-325MG [[place] 1 tab PO BID PRN 01/09/18 09/29/20 7.5-325] Amitriptyline HCl [Elavil] 20 mg PO HS 09/29/20 09/29/20 Baclofen [Lioresal] 10 mg PO BID PRN 09/29/20 09/29/20 Butalb/Acetaminophen/Caffeine 1 cap PO Q4H PRN 09/29/20 09/29/20 [Fioricet 50-300-40 mg Capsule] Furosemide [Lasix] 20 mg PO DAILY PRN 09/29/20 09/29/20 Ibuprofen [Motrin] 600 mg PO TID PRN 09/29/20 09/29/20 Phentermine HCl [Adipex-P] 37.5 mg PO DAILY 09/29/20 09/29/20 Allergies Allergy/AdvReac Type Severity Reaction Status Date / Time adhesive Allergy Itching, Verified 09/29/20 12:22 REDNESS, BLISTERS propoxyphene Allergy Rash/Hives Verified 09/29/20 12:22 [From Darvocet-N] promethazine HCl AdvReac Hallucinati Verified 09/29/20 12:22 [From Phenergan] ons Review of Systems ROS Statement: Those systems with pertinent positive or pertinent negative responses have been documented in the HPI. ROS Other: All systems not noted in ROS Statement are negative. Past Medical History Past Medical History: Hearing Disorder / Deafness Additional Past Medical History / Comment(s): rt ear deafness, migraines History of Any Multi-Drug Resistant Organisms: None Reported Past Surgical History: Section, Cholecystectomy, Tonsillectomy, Tubal Ligation Additional Past Surgical History / Comment(s): x2, rt breast bx-neg Past Anesthesia/Blood Transfusion Reactions: No Reported Reaction Past Psychological History: No Psychological Hx Reported Smoking Status: Never smoker Past Alcohol Use History: None Reported Past Drug Use History: None Reported - Past Family History Mother Family Medical History: Cancer Father Additional Family Medical History / Comment(s): born with only 1 kidney and had dillan leg anuerysms General Exam - General Exam Comments Initial Comments: General: The patient is awake and alert, in no distress. Eye: Pupils are equal, round and reactive to light, extra-ocular movements are intact. No nystagmus. There is normal conjunctiva bilaterally. No signs of icterus. Ears, nose, mouth and throat: There are moist mucous membranes and no oral lesions. Neck: The neck is supple, there is no tenderness or JVD. Cardiovascular: There is a regular rate and rhythm. No murmur, rub or gallop is appreciated. Respiratory: Lungs are clear to auscultation, respirations are non-labored, breath sounds are equal. No wheezes, stridor, rales, or rhonchi. Gastrointestinal: Soft, non-distended, non-tender abdomen without masses or organomegaly noted. There is no rebound or guarding present. Musculoskeletal: Normal ROM, no tenderness. Strength 5/5. Sensation intact. Pulses equal bilaterally 2+. Neurological: A&O x 3. CN II-XII intact grossly, There are no obvious motor or sensory deficits. Coordination appears grossly intact. Speech is normal. Skin: Skin is warm and dry and no rashes or lesions are noted. No lower extremity edema pain Psychiatric: Cooperative, appropriate mood & affect, normal judgment. Limitations: no limitations Course Vital Signs 09/29/20 09/29/20 09/29/20 10:49 11:45 11:54 Temperature 98.5 F Pulse Rate 71 96 Pulse Rate [ 101 H Left Sitting] Pulse Rate [ 126 H Left Standing] Pulse Rate [ 87 Left Supine] Respiratory 18 18 18 Rate Blood Pressure 123/85 127/93 Blood Pressure 128/97 [Right Radial Artery Sitting] Blood Pressure 146/108 [Right Radial Artery Standing ] Blood Pressure 118/84 [Right Radial Artery Supine] O2 Sat by Pulse 100 98 97 Oximetry 09/29/20 13:21 Temperature 98.5 F Pulse Rate 88 Pulse Rate [ Left Sitting] Pulse Rate [ Left Standing] Pulse Rate [ Left Supine] Respiratory 18 Rate Blood Pressure 118/72 Blood Pressure [Right Radial Artery Sitting] Blood Pressure [Right Radial Artery Standing ] Blood Pressure [Right Radial Artery Supine] O2 Sat by Pulse 98 Oximetry Medical Decision Making - Medical Decision Making Labs stable. pt appears dry. increased HR on orthostatic pressure. pt hydrated. EKG No acute findings. CXR clear. No murmur. No leg swelling. NO head injury. No focalized neurological deficits. At this time feel patient is stable for discharge with outpatient Holter monitor, possible echocardiogram as deemed fit by primary care provider patient is agreeable to this care plan as well as discharge at this time . Dr liriano is agreeable to this car eplan. ventricular rate 84 bpm, CO interval 116 ms, QRS duration 80 ms, QT/QTC 390/460. No ST elevation or depression and no evidence of Brugada syndrome no delta wave appreciated - Lab Data Result diagrams: 09/29/20 11:12 09/29/20 11:12 Lab Results 09/29/20 09/29/20 09/29/20 Range/Units 11:03 11:12 11:12 WBC 10.0 (3.8-10.6) k/uL RBC 5.68 H (3.80-5.40) m/uL Hgb 17.2 H (11.4-16.0) gm/dL Hct 49.5 H (34.0-46.0) % MCV 87.2 (80.0-100.0) fL MCH 30.3 (25.0-35.0) pg MCHC 34.7 (31.0-37.0) g/dL RDW 13.3 (11.5-15.5) % Plt Count 267 (150-450) k/uL MPV 6.9 Neutrophils % 72 % Lymphocytes % 19 % Monocytes % 5 % Eosinophils % 2 % Basophils % 1 % Neutrophils # 7.2 (1.3-7.7) k/uL Lymphocytes # 1.9 (1.0-4.8) k/uL Monocytes # 0.5 (0-1.0) k/uL Eosinophils # 0.2 (0-0.7) k/uL Basophils # 0.1 (0-0.2) k/uL PT 10.2 (9.0-12.0) sec INR 1.0 (<1.2) APTT 22.0 (22.0-30.0) sec Sodium (137-145) mmol/L Potassium (3.5-5.1) mmol/L Chloride (98-107) mmol/L Carbon Dioxide (22-30) mmol/L Anion Gap mmol/L BUN (7-17) mg/dL Creatinine (0.52-1.04) mg/dL Est GFR (CKD-EPI)AfAm (>60 ml/min/1.73 sqM) Est GFR (CKD-EPI)NonAf (>60 ml/min/1.73 sqM) Glucose (74-99) mg/dL POC Glucose (mg/dL) 106 H (75-99) mg/dL POC Glu [employer] ID [place] Calcium (8.4-10.2) mg/dL Magnesium (1.6-2.3) mg/dL Total Bilirubin (0.2-1.3) mg/dL AST (14-36) U/L ALT (4-34) U/L Alkaline Phosphatase (38-126) U/L Troponin I (0.000-0.034) ng/mL Total Protein (6.3-8.2) g/dL Albumin (3.5-5.0) g/dL 09/29/20 09/29/20 Range/Units 11:12 11:12 WBC (3.8-10.6) k/uL RBC (3.80-5.40) m/uL Hgb (11.4-16.0) gm/dL Hct (34.0-46.0) % MCV (80.0-100.0) fL MCH (25.0-35.0) pg MCHC (31.0-37.0) g/dL RDW (11.5-15.5) % Plt Count (150-450) k/uL MPV Neutrophils % % Lymphocytes % % Monocytes % % Eosinophils % % Basophils % % Neutrophils # (1.3-7.7) k/uL Lymphocytes # (1.0-4.8) k/uL Monocytes # (0-1.0) k/uL Eosinophils # (0-0.7) k/uL Basophils # (0-0.2) k/uL PT (9.0-12.0) sec INR (<1.2) APTT (22.0-30.0) sec Sodium 135 L (137-145) mmol/L Potassium 4.8 (3.5-5.1) mmol/L Chloride 107 (98-107) mmol/L Carbon Dioxide 18 L (22-30) mmol/L Anion Gap 10 mmol/L BUN 16 (7-17) mg/dL Creatinine 0.91 (0.52-1.04) mg/dL Est GFR (CKD-EPI)AfAm 90 (>60 ml/min/1.73 sqM) Est GFR (CKD-EPI)NonAf 78 (>60 ml/min/1.73 sqM) Glucose 101 H (74-99) mg/dL POC Glucose (mg/dL) (75-99) mg/dL POC Glu Radio Station Manager ID Calcium 9.3 (8.4-10.2) mg/dL Magnesium 1.8 (1.6-2.3) mg/dL Total Bilirubin 0.5 (0.2-1.3) mg/dL AST 27 (14-36) U/L ALT 31 (4-34) U/L Alkaline Phosphatase 61 (38-126) U/L Troponin I <0.012 (0.000-0.034) ng/mL Total Protein 6.8 (6.3-8.2) g/dL Albumin 4.0 (3.5-5.0) g/dL Disposition Clinical Impression: Pre-syncope Disposition: HOME SELF-CARE Condition: Good Instructions (If sedation given, give patient instructions): Syncope (ED), Near Syncope (ED) Additional Instructions: Please use medication as discussed. Please follow-up with family doctor in the next 2 days. Recommend outpatient echocardiogram and stress testing, possible holter monitor and return to ER for additional episodes or symptoms. Please re turn to emergency room if the symptoms increase or worsen or for any other concerns. Is patient prescribed a controlled substance at d/c from ED?: No Referrals: Thair Toney MD [Primary Care Provider] - 1-2 days Time of Disposition: 12:13
[2020-09-29 13:23] VITALS: BP 118/72; PULSE 88
== END 2020-09-29 13:21 | disposition home or self-care (01) ==
LOC: EC 10:48
DX: R55 Syncope and collapse (principal); H91.91 Unspecified hearing loss, right ear; Z88.8 Allergy status to other drugs, medicaments and biological substances; Z91.048 Other nonmedicinal substance allergy status; Z90.49 Acquired absence of other specified parts of digestive tract; Z86.69 Personal history of other diseases of the nervous system and sense organs
CPT/HCPCS: 36415; 71046; 80053; 83735; 84484; 85025; 85610; 85730; 93005; 96360; 99284

== ENCOUNTER → 2020-10-01 | Outpatient (CLI) | payer MEDICAID ==
--- NOTE | 2020-10-01 21:21 | CT ---
CT CHEST FOR PULMONARY EMBOLISM. EXAMINATION TYPE: CT angio chest DATE OF EXAM: 10/01/2020 INDICATION: SOB x [address] DLP: 483.7 mGycm, Automated exposure control for dose reduction was used. CONTRAST: Patient injected with 60cc mL of Isovue 370. COMPARISON: None TECHNIQUE: CT of the chest is performed on a spiral scan at 2 mm thick sections. Study is performed with intravenous contrast timed for evaluation for pulmonary embolism. This will limit additional po rtions of the evaluation. 3-D MIP images reconstructed by the technologist are reviewed on the compu ter in the coronal and sagittal planes. FINDINGS: No persistent filling defects are evident to suggest an acute pulmonary embolism. No mediastinal or hilar adenopathy enlarged by CT criteria is evident. The ascending aorta diameter at the level of the main pulmonary artery is 2.9 cm. The main pulmonary artery diameter at the bifur cation is 2.3 cm. Lung windows are clear. Limited CT section through the upper abdomen are unremarkable. IMPRESSIONS: 1. No acute pulmonary embolism
== END | disposition home or self-care (01) ==
LOC: RADCTMAIN 15:09
PROVIDERS: ATTEND Family Medicine
DX: R07.9 Chest pain, unspecified (principal); R06.02 Shortness of breath
CPT/HCPCS: 71275; Q9967

== ENCOUNTER → 2020-10-03 | Outpatient (CLI) | payer MEDICAID | END | disposition home or self-care (01) | LOC: LABWHC1 13:08 | PROVIDERS: ATTEND Family Medicine | DX: R06.02 Shortness of breath (principal) | CPT/HCPCS: U0003; C9803; U0005 ==

== ENCOUNTER → 2020-10-03 | Outpatient (CLI) | payer MEDICAID ==
[2020-10-03 17:14] LABS: Anion Gap 7.4 mmol/L (4.00-12.00); C Reactive Protein 0.4 mg/dL (0.0-0.8); Carbon Dioxide 23.6 mmol/L (21.6-31.8); Potassium 4.3 mmol/L (3.5-5.5)
== END | disposition home or self-care (01) ==
LOC: LABWHC1 08:53
PROVIDERS: ATTEND Family Medicine
DX: R07.9 Chest pain, unspecified (principal)
CPT/HCPCS: 36415; 80051; 86140

== ENCOUNTER → 2020-10-10 | Outpatient (CLI) | payer MEDICAID ==
--- NOTE | 2020-10-10 13:31 | ECHOF ---
Referral Reason:R07.9 chest pain, R06.02 shortness of breath MEASUREMENTS -------- HEIGHT: 165.1 cm WEIGHT: 123.4 kg BP: IVSd: 0.9 cm (0.6 - 1.1) LVIDd: 4.8 cm (3.9 - 5.3) LVPWd: 0.9 cm (0.6 - 1.1) IVSs: 1.5 cm LVIDs: 3.2 cm LVPWs: 1.4 cm LAESV Index (A-L): 20.24 ml/m Ao Diam: 2.8 cm (2.0 - 3.7) AV Cusp: 2.2 cm (1.5 - 2.6) LA Diam: 3.3 cm (2.7 - 3.8) MV EXCURSION: 15.618 mm (> 18.000) MV EF SLOPE: 188 mm/s (70 - 150) EPSS: 0.3 cm MV E Ignacio: 0.83 m/s MV DecT: 199 ms MV A Ignacio: 0.70 m/s MV E/A Ratio: 1.19 RAP: 5.00 mmHg RVSP: 10.17 mmHg FINDINGS -------- This was a technically good study. The left ventricular size is normal. Left ventricular wall thickness is normal. Overall left vent ricular systolic function is normal with, an EF between 55 - 60 %. The diastolic filling pattern is normal for the age of the patient 7.26. The right ventricle is normal in size. The left atrial size is normal. Normal LA size by volume 22+/-6 ml/m2. The right atrial size is normal. The aortic valve is trileaflet and appears structurally normal. The mitral valve is normal. Mild mitral regurgitation is present. The tricuspid valve appears structurally normal. Trace tricuspid regurgitation present. Right michelle tricular systolic pressure is normal at < 35 mmHg. There is no pulmonic regurgitation present. The aortic root size is normal. Normal inferior vena cava with normal inspiratory collapse consistent with estimated right atrial pre ssure of 5 mmHg. There is no pericardial effusion. CONCLUSIONS -------- 1. The left ventricular size is normal. 2. Left ventricular wall thickness is normal. 3. Overall left ventricular systolic function is normal with, an EF between 55 - 60 %. 4. The diastolic filling pattern is normal for the age of the patient 7.26 5. Mild mitral regurgitation is present. 6. Trace tricuspid regurgitation present. 7. There is no pericardial effusion. [employer] SUPERVISOR: Rhoda Tejada RDCS
--- NOTE | 2020-10-14 10:39 | HM ---
HOLTER MONITOR REPORT The patient was monitored for 48 hours. The baseline rhythm is a sinus mechanism with normal conduction. The average rate 70 beats per minute, minimum 52, maximum 119 beats per minute. Ventricular ectopic activity was not present. Supraventricular ectopic activity was present in the form of rare single PACs. There was short burst of supraventricular tachycardia, the longest being 5 complexes. Symptoms of gasping for air did not correlate with any dysrhythmia. According to the note, the patient had an episode of rapid heartbeat after the patient took her monitor off. CONCLUSION: 1. Sinus mechanism baseline rhythm. 2. No ventricular ectopic activity. 3. Rare supraventricular ectopic activity. 4. Symptoms did not correlate with any dysrhythmia. MMODL / IJN: [id number] /
== END | disposition home or self-care (01) ==
LOC: RADECHMAIN 11:17
PROVIDERS: ATTEND Family Medicine
DX: I34.0 Nonrheumatic mitral (valve) insufficiency (principal); R07.9 Chest pain, unspecified
CPT/HCPCS: 93225; 93226; 93306

== ENCOUNTER 2020-10-14 12:30 | Observation (INO) | payer MEDICAID ==
[2020-10-14] MEDS ORDERED: LORazepam 2 MG/ML INJ IV STA (12:48)
[2020-10-14 13:30] LABS: Basophils # (A) 0.1 k/uL (0-0.2); Basophils % (A) 1 %; Eosinophils # (A) 0.2 k/uL (0-0.7); Eosinophils % (A) 2 %; HCT 41.9 % (34.0-46.0); HGB 14.7 gm/dL (11.4-16.0); Lymphocytes # (A) 1.8 k/uL (1.0-4.8); Lymphocytes % (A) 25 %; MCH 30.2 pg (25.0-35.0); MCV 86.3 fL (80.0-100.0); Mean Platelet Volume 6.6; Monocytes # (A) 0.3 k/uL (0-1.0); Monocytes % (A) 4 %; Neutrophils # (A) 4.8 k/uL (1.3-7.7); Neutrophils % (A) 66 %; Platelet Count 227 k/uL (150-450); RBC 4.86 m/uL (3.80-5.40); RDW 13.2 % (11.5-15.5); WBC 7.2 k/uL (3.8-10.6)
--- NOTE | 2020-10-14 13:31 | ED ---
SOB HPI - General Chief Complaint: Shortness of Breath Stated Complaint: SOB Time Seen by Provider: 10/14/20 12:41 Source: patient Mode of arrival: wheelchair Limitations: no limitations - History of Present Illness Initial Comments: 40yo female presenting for dyspnea, cant catch breath. pt states she was walking from one end of the hospital to the other when she got a call she needed to go back to the end that she just at she states she was already out of breath more than she thought she should be. Patient states she all of a sudden began breathing faster and faster and couldnt catch her breath. pt states she was worried, called her co-worker and then walked here to the ER. Pt denies ches tpain, pain wtih deep inspiration or calf swelling/pain. Pt states at times it feel likes "someone is scooping from her heart" like she is on a "rollercoaste r". Pt states she has recent CTA that was negative, holter monitor as well as echcardiogram. pt states that the echocardio gram was (-), she is unsure of the holter monitor results. - Related Data Home Medications Medication Instructions Recorded Confirmed HYDROcodone/APAP 7.5-325MG [[place] 1 tab PO BID PRN 01/09/18 10/14/20 7.5-325] Amitriptyline HCl [Elavil] 20 mg PO HS 09/29/20 10/14/20 Baclofen [Lioresal] 10 mg PO BID PRN 09/29/20 10/14/20 Butalb/Acetaminophen/Caffeine 1 cap PO Q4H PRN 09/29/20 10/14/20 [Fioricet 50-300-40 mg Capsule] Furosemide [Lasix] 20 mg PO DAILY PRN 09/29/20 10/14/20 Ibuprofen [Motrin] 600 mg PO TID PRN 09/29/20 10/14/20 Phentermine HCl [Adipex-P] 37.5 mg PO DAILY 09/29/20 10/14/20 Allergies Allergy/AdvReac Type Severity Reaction Status Date / Time adhesive Allergy Itching, Verified 10/14/20 12:38 REDNESS, BLISTERS propoxyphene Allergy Rash/Hives Verified 10/14/20 12:38 [From Darvocet-N] promethazine HCl AdvReac Hallucinati Verified 10/14/20 12:38 [From Phenergan] ons Review of Systems ROS Statement: Those systems with pertinent positive or pertinent negative responses have been documented in the HPI. ROS Other: All systems not noted in ROS Statement are negative. Past Medical History Past Medical History: Hearing Disorder / Deafness Additional Past Medical History / Comment(s): rt ear deafness, migraines History of Any Multi-Drug Resistant Organisms: None Reported Past Surgical History: Section, Cholecystectomy, Tonsillectomy, Tubal L igation Additional Past Surgical History / Comment(s): x2, rt breast bx-neg Past Anesthesia/Blood Transfusion Reactions: No Reported Reaction Past Psychological History: No Psychological Hx Reported Smoking Status: Never smoker Past Alcohol Use History: None Reported Past Drug Use History: None Reported - Past Family History Mother Family Medical History: Cancer Father Additional Family Medical History / Comment(s): born with only 1 kidney and had dillan leg anuerysms General Exam - General Exam Comments Initial Comments: General: The patient is awake and alert, in no distress Eye: +3 mm pupils are equal, round and reactive to light, extra-ocular movemen ts are intact. No nystagmus. There is normal conjunctiva bilaterally. No signs of icterus. Ears, nose, mouth and throat: There are moist mucous membranes and no oral les ions. Neck: The neck is supple, there is no tenderness or JVD. Cardiovascular: There is a regular rate and rhythm. No murmur, rub or gallop is appreciated. Respiratory: Lungs are clear to auscultation, respirations are non-labored, breath sounds are equal. No wheezes, stridor, rales, or rhonchi. Gastrointestinal: Soft, non-distended, non-tender abdomen without masses or organomegaly noted. There is no rebound or guarding present. Musculoskeletal: Normal ROM, no tenderness. Strength 5/5. Sensation intact. Radial and DP pulses equal bilaterally 2+. Neurological: A&O x 3. CN II-XII intact, There are no obvious motor or sensory deficits. Coordination appears grossly intact. Speech is normal. Skin: Skin is warm and dry and no rashes or lesions are noted. No LE edema. no calf pain or swelling. Psychiatric: Cooperative, appropriate mood & affect, normal judgment. Limitations: no limitations Course Vital Signs 10/14/20 10/14/20 10/14/20 12:36 13:30 14:30 Temperature 97.7 F Pulse Rate 78 96 Respiratory 20 20 17 Rate Blood Pressure 111/76 129/95 O2 Sat by Pulse 99 98 Oximetry 10/14/20 19:12 Temperature Pulse Rate Respiratory 18 Rate Blood Pressure O2 Sat by Pulse Oximetry Medical Decision Making - Medical Decision Making Trop (-). Atypical chest pain. Aspirin given, main complaints dyspnea. outpatient echo, CTA and holter unremarkable. at this time givne persistent symptoms and discussing case with attending feel it is appropriate for admission for possible stress test/cardiology consultation. serial troponins pending. Samina Armendariz is agreeable to care plan. - Lab Data Result diagrams: 10/14/20 13:08 10/14/20 13:08 Lab Results 10/14/20 10/14/20 10/14/20 Range/Units 13:08 13:08 13:08 WBC 7.2 (3.8-10.6) k/uL RBC 4.86 (3.80-5.40) m/uL Hgb 14.7 (11.4-16.0) gm/dL Hct 41.9 (34.0-46.0) % MCV 86.3 (80.0-100.0) fL MCH 30.2 (25.0-35.0) pg MCHC 35.0 (31.0-37.0) g/dL RDW 13.2 (11.5-15.5) % Plt Count 227 (150-450) k/uL MPV 6.6 Neutrophils % 66 % Lymphocytes % 25 % Monocytes % 4 % Eosinophils % 2 % Basophils % 1 % Neutrophils # 4.8 (1.3-7.7) k/uL Lymphocytes # 1.8 (1.0-4.8) k/uL Monocytes # 0.3 (0-1.0) k/uL Eosinophils # 0.2 (0-0.7) k/uL Basophils # 0.1 (0-0.2) k/uL PT 10.5 (9.0-12.0) sec INR 1.0 (<1.2) APTT 22.1 (22.0-30.0) sec Sodium 136 L (137-145) mmol/L Potassium 3.9 (3.5-5.1) mmol/L Chloride 105 (98-107) mmol/L Carbon Dioxide 23 (22-30) mmol/L Anion Gap 8 mmol/L BUN 14 (7-17) mg/dL Creatinine 0.90 (0.52-1.04) mg/dL Est GFR (CKD-EPI)AfAm >90 (>60 ml/min/1.73 sqM) Est GFR (CKD-EPI)NonAf 80 (>60 ml/min/1.73 sqM) Glucose 86 (74-99) mg/dL Plasma Lactic Acid Dipak (0.7-2.0) mmol/L Calcium 9.4 (8.4-10.2) mg/dL Magnesium 1.8 (1.6-2.3) mg/dL Total Bilirubin 0.5 (0.2-1.3) mg/dL AST 22 (14-36) U/L ALT 22 (4-34) U/L Alkaline Phosphatase 69 (38-126) U/L Troponin I (0.000-0.034) ng/mL Total Protein 7.2 (6.3-8.2) g/dL Albumin 4.3 (3.5-5.0) g/dL Triglycerides (<150) mg/dL Cholesterol (<200) mg/dL LDL Cholesterol, Calc (0-99) mg/dL HDL Cholesterol (40-60) mg/dL 10/14/20 10/14/20 10/14/20 Range/Units 13:08 13:08 13:08 WBC (3.8-10.6) k/uL RBC (3.80-5.40) m/uL Hgb (11.4-16.0) gm/dL Hct (34.0-46.0) % MCV (80.0-100.0) fL MCH (25.0-35.0) pg MCHC (31.0-37.0) g/dL RDW (11.5-15.5) % Plt Count (150-450) k/uL MPV Neutrophils % % Lymphocytes % % Monocytes % % Eosinophils % % Basophils % % Neutrophils # (1.3-7.7) k/uL Lymphocytes # (1.0-4.8) k/uL Monocytes # (0-1.0) k/uL Eosinophils # (0-0.7) k/uL Basophils # (0-0.2) k/uL PT (9.0-12.0) sec INR (<1.2) APTT (22.0-30.0) sec Sodium (137-145) mmol/L Potassium (3.5-5.1) mmol/L Chloride (98-107) mmol/L Carbon Dioxide (22-30) mmol/L Anion Gap mmol/L BUN (7-17) mg/dL Creatinine (0.52-1.04) mg/dL Est GFR (CKD-EPI)AfAm (>60 ml/min/1.73 sqM) Est GFR (CKD-EPI)NonAf (>60 ml/min/1.73 sqM) Glucose (74-99) mg/dL Plasma Lactic Acid Dipak 1.0 (0.7-2.0) mmol/L Calcium (8.4-10.2) mg/dL Magnesium (1.6-2.3) mg/dL Total Bilirubin (0.2-1.3) mg/dL AST (14-36) U/L ALT (4-34) U/L Alkaline Phosphatase (38-126) U/L Troponin I <0.012 (0.000-0.034) ng/mL Total Protein (6.3-8.2) g/dL Albumin (3.5-5.0) g/dL Triglycerides 86 (<150) mg/dL Cholesterol 209 H (<200) mg/dL LDL Cholesterol, Calc 138 H (0-99) mg/dL HDL Cholesterol 54 (40-60) mg/dL Disposition Clinical Impression: Chest discomfort, Dyspnea Disposition: ADMITTED IP TO THIS [facility] Condition: Stable Is patient prescribed a controlled substance at d/c from ED?: No Time of Disposition: 14:12 Decision to Admit Reason: Admit from EC Decision Date: 10/14/20 Decision Time: 14:12
[2020-10-14 13:39] LABS: ALT 22 U/L (4-34); AST 22 U/L (14-36); African American GFR (CKD) >90 (>60 ml/min/1.73 sqM); Albumin 4.3 g/dL (3.5-5.0); Alkaline Phosphatase 69 U/L (38-126); Anion Gap 8 mmol/L; Blood Urea Nitrogen 14 mg/dL (7-17); Calcium 9.4 mg/dL (8.4-10.2); Carbon Dioxide 23 mmol/L (22-30); Chloride 105 mmol/L (98-107); Glucose 86 mg/dL (74-99); Magnesium 1.8 mg/dL (1.6-2.3); Non-African American GFR(CKD) 80 (>60 ml/min/1.73 sqM); Potassium 3.9 mmol/L (3.5-5.1); Sodium 136 mmol/L (137-145); Total Bilirubin 0.5 mg/dL (0.2-1.3); Total Protein 7.2 g/dL (6.3-8.2)
[2020-10-14 13:44] LABS: Partial Thromboplastin Time 22.1 sec (22.0-30.0); Prothrombin Time 10.5 sec (9.0-12.0)
--- NOTE | 2020-10-14 13:45 | XR ---
EXAMINATION TYPE: XR chest 2V DATE OF EXAM: 10/14/2020 COMPARISON: Prior chest x-ray 09/29/2020 HISTORY: Difficulty breathing TECHNIQUE: Frontal and lateral views of the chest are obtained. FINDINGS: There is no focal air space opacity, pleural effusion, or pneumothorax seen. The cardiac silhouette size is within normal limits. The osseous structures are intact. IMPRESSION: No acute cardiopulmonary process.
[2020-10-14] MEDS ORDERED: NITROGLYCERIN SL TABS 0.4 MG TAB SUBLINGUAL PRN (14:10)
[2020-10-14] MEDS ORDERED: ASPIRIN 81 MG PO STA (14:11)
[2020-10-14] MEDS ORDERED: BUTALB/APAP/CAFF 50-325-40MG TAB PO STA (17:39)
[2020-10-14] MEDS ORDERED: HYDROcodone/APAP 7.5-325MG 1 EACH TAB PO PRN (18:03)
[2020-10-14] MEDS ORDERED: FUROSEMIDE 20 MG TAB PO PRN (18:03)
[2020-10-14] MEDS ORDERED: BACLOFEN 10 MG TAB PO PRN (18:03)
[2020-10-14] MEDS: AMITRIPTYLINE HCL 10 MG TAB PO SCH (21:50)
[2020-10-15 03:07] LABS: Cholesterol 209 mg/dL (<200); HDL Cholesterol 54 mg/dL (40-60); LDL Cholesterol,Calculated 138 mg/dL (0-99); Triglycerides 86 mg/dL (<150)
[2020-10-15] MEDS: BUTALB/APAP/CAFF 50-325-40MG TAB PO PRN ×3 (05:04→20:19)
--- NOTE | 2020-10-15 05:38 | P.HPIM ---
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 Patient denies any cardiac history in the past through which she had ended up coming to the emergency department at [facility] where was seen and evaluated her vital signs continue to show slightly bit rapid pulse otherwise doing well her white blood cell weren't normal platelets were normal hemoglobin and hematocrit patient was off slight bit. Patient and further testing including Holter monitor, echocardiogram and further lab work order. Patient had felt slightly bit better in the middle of all those testing. Patient presented to the emergency department at [facility] today 10/14/2020 consistent with no major abnormality most likely patient had vasovagal at the time. forward the time to today 10/14/2020 patient patient was at work when she developed to have symptom of palpitation with significant shortness of breath with minimum exertion on and off become scary with significant slight tightness with lightheadedness and very close to pass out without having syncope. Patient ended up seen in demurs department lab shows no abnormality CK with troponin was negative. With the significant sign and symptom of shortness of breath with minimal exertion patient be In the hospital with symptom of palpitation and this exertional shortness of breath with minimum exertion she was scared ended up being seen in the emergency department. Patient history was reviewed will be admitted seen cardiology and neurology for further planning including EEG, tilt table study, MRI of the brain. Review of Systems CONSTITUTIONAL: Well-developed no acute respiratory distress. EYES: No icterus sclerae, no conjunctivitis. EARS, NOSE, MOUTH, THROAT, and FACE: No sore throat, lymphadenopathy, carotid bruits or deformity. RESPIRATORY: No SOB cough or wheezes. Significant shortness of breath with exertion. CARDIOVASCULAR: No CP, Palpitation, PND, Orthopnea, or angina. GASTROINTESTINAL: No Abd pain, Nausea or vomiting, no Diarrhea or constipation, No GI Bleed, no distention or masses. GENITOURINARY: Negative for Hematuria or UTI, no kidney stones. INTEGUMENT/BREAST: Negative for any muscular injury with mild osteoarthritis.. HEMATOLOGIC/LYMPHATIC: Negative for bleed or purpura. MUSCULOSKELTAL: Negative for Myalgia or arthralgia. NEURLOGICAL: No LOC, Sz or positive syncope with recurrent episode mild headache migraine type. BEHAVIORAL/PSYCH: Negative. ENDOCRINE: Negative. Past Medical History Past Medical History: Hearing Disorder / Deafness, Renal Disease Additional Past Medical History / Comment(s): Pt states she recently had near syncope and has started cardiac workup, R nephrolithiasis with surgery x2, UTI, chronic low back pain, rt ear deafness, migraines History of Any Multi-Drug Resistant Organisms: None Reported Past Surgical History: Section, Cholecystectomy, Tonsillectomy, Tubal Ligation Additional Past Surgical History / Comment(s): x2, rt breast bx-neg, diagnostic laparoscopy/D&C, cystoscopies with R double J stents, EGD Past Anesthesia/Blood Transfusion Reactions: No Reported Reaction Smoking Status: Former smoker - Past Family History Mother Family Medical History: Cancer Additional Family Medical History / Comment(s): Breast cancer. Father Family Medical History: Coronary Artery Disease (CAD), Vascular Disorder Additional Family Medical History / Comment(s): Father was born with only 1 kidney and had dillan leg anuerysms. He had a NE at the age of 73 yrs. Medications and Allergies Home Medications Medication Instructions Recorded Confirmed Type HYDROcodone/APAP 7.5-325MG [[place] 1 tab PO BID PRN 01/09/18 10/14/20 History 7.5-325] Amitriptyline HCl [Elavil] 20 mg PO HS 09/29/20 10/14/20 History Baclofen [Lioresal] 10 mg PO BID PRN 09/29/20 10/14/20 History Butalb/Acetaminophen/Caffeine 1 cap PO Q4H PRN 09/29/20 10/14/20 History [Fioricet 50-300-40 mg Capsule] Furosemide [Lasix] 20 mg PO DAILY PRN 09/29/20 10/14/20 History Ibuprofen [Motrin] 600 mg PO TID PRN 09/29/20 10/14/20 History Phentermine HCl [Adipex-P] 37.5 mg PO DAILY 09/29/20 10/14/20 History Allergies Allergy/AdvReac Type Severity Reaction Status Date / Time adhesive Allergy Itching, Verified 10/14/20 12:38 REDNESS, BLISTERS propoxyphene Allergy Rash/Hives Verified 10/14/20 12:38 [From Darvocet-N] promethazine HCl AdvReac Hallucinati Verified 10/14/20 12:38 [From Phenergan] ons Physical Exam Vitals: Vital Signs Temp Pulse Resp BP Pulse Ox 10/14/20 14:30 96 17 129/95 98 10/14/20 13:30 20 10/14/20 12:36 97.7 F 78 20 111/76 99 Intake and Output 10/14/20 10/14/20 10/14/20 06:59 14:59 22:59 Other: Weight 122.47 kg 122.47 kg General Appearance: Alert, cooperative, no distress, appears stated age. Neck HEENT: Supple, no lymphadenopathy, no thyroid enlargement, no carotid bruits. Lungs: Clear to auscultation without crackles or wheezes no rhonchi, no d eformity. Chest Wall: Chest wall normal expansion with deep inspiration no tenderness and no deformity was found on exam, no costochondral pain or discomfort. Heart: Regular rate and rhythm, S1, S2 normal, no murmur, rub or gallop. Few PVCs. Back: Symmetric, no curvature, ROM normal, no CVA tenderness. Abdomen: Soft, non-tender, bowel sounds active all four quadrants, no masses, no organomegaly. Extremities: Extremities normal, atraumatic, no cyanosis or edema. Pulses: 2+ and symmetric. Skin: Skin color, texture, tugor normal, no rashes or lesions. Neurologic: Alert oriented x3 cranial nerves II through XII intact, no motor deficit, no abnormal balance or gait. Results CBC & Chem 7: 10/14/20 13:08 10/14/20 13:08 Labs: Abnormal Lab Results - Last 24 Hours (Table) 10/14/20 Range/Units 13:08 Sodium 136 L (137-145) mmol/L Thrombosis Risk Factor Assmnt - DVT/VTE Prophylaxis DVT/VTE Prophylaxis: Pharmacologic Prophylaxis ordered, Mechanical Prophylaxis ordered - Choose All That Apply Any of the Below Risk Factors Present?: Yes Each Factor Represents 1 point: Age 41-60 years, Obesity (BMI >25) Other Risk Factors: No Other congenital or acquired thrombophilia - If yes, enter type in comment: No Thrombosis Risk Factor Assessment Total Risk Factor Score: 2 Thrombosis Risk Factor Assessment Level: Low Risk Assessment and Plan Assessment: 1 severe dyspnea and shortness of breath: CTA was negative, no acute heart inj ury with the cardiac enzyme and troponin are negative, patient will remain on O2 if needed and add diuretics. 2 recurrent episode of presyncope and syncope not clear etiology patient will require an EEG and possible close monitor one of us seizure unit done before. 3 recurrent episodes chest pain: I'll be seen cardiology see nothing by mouth stress test and echo will be done. 4 chronic edema: Remain on furosemide as needed. 5 atypical migraine: Patient has been on baclofen LDL and remain on Fioricet on as-needed basis. 6 GI prophylaxis: Patient be on Pepcid 20 mg daily. 7 DVT prophylaxis: Early mobilization no need for any subcu heparin or much better. CODE STATUS: Full code. Admit patient to the inpatient service for more than 2 night stay.
[2020-10-15] MEDS ORDERED: ASPIRIN 325 MG TAB PO SCH (09:00)
[2020-10-15] MEDS ORDERED: FAMOTIDINE 20 MG TAB PO SCH (09:00)
--- NOTE | 2020-10-15 10:39 | P.CRDCN ---
History of Present Illness History of present illness: HISTORY OF PRESENTING ILLNESS This is a pleasant 40-year-old female past medical history significant for migraines, chronic pain, lower extremity edema and morbid obesity. She den ies prior history of coronary artery disease and does not follow in the office with a fisher mussel. We have been asked to see in consultation for dyspnea on exertion. She states this all started September 29. She was at work that day and started feeling lightheaded, palpitations, diaphoretic and nauseated. She was able to walk to a chair and then she states she passed out. She was seen in ER that day and initial testing was unremarkable. Since that time she has undergone a 48-hour Holter monitor and echocardiogram. Both unremarkable. She states while she was wearing the Holter monitor she did not have any symptoms of dizziness or palpitations. Yesterday she had another episode that was preceded by her heart racing. She then felt light headed, short of breath and diaphoretic. She did not pass out this time. DIAGNOSTICS EKG reveals sinus mechanism with no acute changes. Telemetry tracings indicate sinus mechanism with no acute arrhythmia. Chest xray negative for an acute cardiopulmonary process. Laboratory reviewed, CBC unremarkable, sodium 136, potassium 3.6, creatinine 0.9, cardiac enzymes negative x3, BNP 25, LDL 138, HDL 54. Current cardiac medications include lasix 20 mg daily PRN for lower extremity swelling. REVIEW OF SYSTEMS At the time of my exam: CONSTITUTIONAL: Denies fever or chills. CARDIOVASCULAR: Denies chest pain, shortness of breath, orthopnea, PND or palpitations. RESPIRATORY: Denies cough. GASTROINTESTINAL: Denies abdominal pain, diarrhea, constipation, nausea or vomiting. MUSCULOSKELETAL: Denies myalgias. NEUROLOGIC: Denies numbness, tingling, headacbe or weakness. ENDOCRINE: Denies fatigue, weight change, polydipsia or polyurina. GENITOURINARY: Denies burning, hematuria or urgency with micturation. HEMATOLOGIC: Denies history of anemia or bleeding. PHYSICAL EXAMINATION Blood pressure 99/67 heart rate 81 afebrile and maintaining oxygen saturation on room air. CONSTITUTIONAL: No apparent distress. Morbidly obese. HEENT: Head is normocephalic. Pupils are equal, round. Sclerae anicteric. Mucous membranes of the mouth are moist. No JVD. No carotid bruit. CHEST EXAMINATION: Lungs are clear to auscultation. No chest wall tenderness is noted on palpation or with deep breathing. HEART EXAMINATION: Regular rate and rhythm. S1, S2 heard. No murmurs, gallops or rub. ABDOMEN: Soft, nontender. Positive bowel sounds. EXTREMITIES: 2+ peripheral pulses, no lower extremity edema and no calf tenderness. NEUROLOGIC EXAMINATION: Patient is awake, alert and oriented x3. ASSESSMENT Near syncope Palpitations Morbid obesity, BMI 44 PLAN An acute coronary event has been ruled out. Perform stress echocardiogram to assess for stress induced ischemia. Check for orthostatic changes. Tilt table test can be scheduled as an outpatient if stress test is normal. On discharge apply 30 day event monitor to assess for significant underlying arrhythmia. Follow up with Dr. Azar in 5 weeks. Thank you kindly for this consultation. Nurse Practitioner note has been reviewed, I agree with a documented findings and plan of care. Patient was seen and examined. Past Medical History Past Medical History: Hearing Disorder / Deafness Additional Past Medical History / Comment(s): rt ear deafness, migraines History of Any Multi-Drug Resistant Organisms: None Reported Past Surgical History: Section, Cholecystectomy, Tonsillectomy, Tubal Ligation Additional Past Surgical History / Comment(s): x2, rt breast bx-neg Past Anesthesia/Blood Transfusion Reactions: No Reported Reaction Past Psychological History: No Psychological Hx Reported Smoking Status: Never smoker Past Alcohol Use History: None Reported Past Drug Use History: None Reported - Past Family History Mother Family Medical History: Cancer Additional Family Medical History / Comment(s): Breast cancer. Father Family Medical History: Coronary Artery Disease (CAD), Vascular Disorder Additional Family Medical History / Comment(s): born with only 1 kidney and had dillan leg anuerysms Medications and Allergies Home Medications Medication Instructions Recorded Confirmed Type HYDROcodone/APAP 7.5-325MG [[place] 1 tab PO BID PRN 01/09/18 10/14/20 History 7.5-325] Amitriptyline HCl [Elavil] 20 mg PO HS 09/29/20 10/14/20 History Baclofen [Lioresal] 10 mg PO BID PRN 09/29/20 10/14/20 History Butalb/Acetaminophen/Caffeine 1 cap PO Q4H PRN 09/29/20 10/14/20 History [Fioricet 50-300-40 mg Capsule] Furosemide [Lasix] 20 mg PO DAILY PRN 09/29/20 10/14/20 History Ibuprofen [Motrin] 600 mg PO TID PRN 09/29/20 10/14/20 History Phentermine HCl [Adipex-P] 37.5 mg PO DAILY 09/29/20 10/14/20 History Allergies Allergy/AdvReac Type Severity Reaction Status Date / Time adhesive Allergy Itching, Verified 10/14/20 12:38 REDNESS, BLISTERS propoxyphene Allergy Rash/Hives Verified 10/14/20 12:38 [From Darvocet-N] promethazine HCl AdvReac Hallucinati Verified 10/14/20 12:38 [From Phenergan] ons Physical Exam Vitals: Vital Signs Temp Pulse Pulse Resp BP BP Pulse Ox 10/15/20 05:22 97.9 F 81 16 99/67 98 10/14/20 20:00 98.6 F 80 16 113/80 99 10/14/20 19:12 18 10/14/20 14:30 96 17 129/95 98 10/14/20 13:30 20 10/14/20 12:36 97.7 F 78 20 111/76 99 Intake and Output 10/14/20 10/15/20 10/15/20 22:59 06:59 14:59 Other: Voiding Method Toilet Weight 122.47 kg Results 10/14/20 13:08 10/14/20 13:08 Cardiac Enzymes 10/14/20 10/14/20 10/14/20 Range/Units 13:08 13:08 16:17 AST 22 (14-36) U/L Troponin I <0.012 <0.012 (0.000-0.034) ng/mL 10/14/20 Range/Units 20:06 AST (14-36) U/L Troponin I <0.012 (0.000-0.034) ng/mL Coagulation 10/14/20 Range/Units 13:08 PT 10.5 (9.0-12.0) sec APTT 22.1 (22.0-30.0) sec Lipids 10/14/20 Range/Units 13:08 Triglycerides 86 (<150) mg/dL Cholesterol 209 H (<200) mg/dL HDL Cholesterol 54 (40-60) mg/dL CBC 10/14/20 Range/Units 13:08 WBC 7.2 (3.8-10.6) k/uL RBC 4.86 (3.80-5.40) m/uL Hgb 14.7 (11.4-16.0) gm/dL Hct 41.9 (34.0-46.0) % Plt Count 227 (150-450) k/uL Comprehensive Metabolic Panel 10/14/20 Range/Units 13:08 Sodium 136 L (137-145) mmol/L Potassium 3.9 (3.5-5.1) mmol/L Chloride 105 (98-107) mmol/L Carbon Dioxide 23 (22-30) mmol/L BUN 14 (7-17) mg/dL Creatinine 0.90 (0.52-1.04) mg/dL Glucose 86 (74-99) mg/dL Calcium 9.4 (8.4-10.2) mg/dL AST 22 (14-36) U/L ALT 22 (4-34) U/L Alkaline Phosphatase 69 (38-126) U/L Total Protein 7.2 (6.3-8.2) g/dL Albumin 4.3 (3.5-5.0) g/dL Current Medications Generic Name Dose Route Start Last Admin Trade Name Freq PRN Reason Stop Dose Admin Acetaminophen/Butalbital/Caffeine 1 each 10/14/20 18:03 10/15/20 05:04 Butalb/Apap/Caff 50-325-40mg Tab PO 1 each Q4H PRN Administration Migraine Headache Hydrocodone Bitart/Acetaminophen 1 each 10/14/20 18:03 Hydrocodone/Apap 7.5-325mg 1 Each Tab PO BID PRN Pain Amitriptyline HCl 20 mg 10/14/20 21:00 10/14/20 21:50 Amitriptyline Hcl 10 Mg Tab PO 20 mg HS ARLENE Administration Aspirin 325 mg 10/15/20 09:00 Aspirin 325 Mg Tab PO DAILY ARLENE Baclofen 10 mg 10/14/20 18:03 Baclofen 10 Mg Tab PO BID PRN Muscle Spasm Famotidine 20 mg 10/15/20 09:00 Famotidine 20 Mg Tab PO DAILY ARLENE Furosemide 20 mg 10/14/20 18:03 Furosemide 20 Mg Tab PO DAILY PRN Edema Nitroglycerin 0.4 mg 10/14/20 14:10 Nitroglycerin Sl Tabs 0.4 Mg Tab SUBLINGUAL Q5M PRN Chest Pain Intake and Output 10/14/20 10/15/20 10/15/20 22:59 06:59 14:59 Other: Voiding Method Toilet Weight 122.47 kg 10/14/20 13:08 10/14/20 13:08
--- NOTE | 2020-10-15 13:02 | ECHOS ---
STRESS ECHOCARDIOGRAM INDICATIONS: MEDICATIONS: BASELINE HEART RATE: 77 BASELINE BLOOD PRESSURE: 110/67 MAXIMUM HEART RATE: 160 MAXIMUM BLOOD PRESSURE: 115/62 85% MPHR: 151 100% MPHR: 178 METS: MAXIMUM STAGE REACHED: II TOTAL EXERCISE TIME: 6 minutes. CLINICAL INFORMATION: Baseline rhythm is sinus mechanism, rate of 77, normal axis and intervals, poor R progression. Baseline blood pressure 110/67 mmHg. Patient exercised on Santiago protocol for 6 minutes reaching peak rate 160 beats per minute which is equal to 90% maximum predicted heart rate. Peak blood pressure 115/62 mmHg. Test was terminated secondary to fatigue. There was no chest pain. Electrocardiograph monitoring revealed no evidence of diagnostic ischemic ST deviation. Baseline echocardiogram revealed normal wall motion. At peak exercise, there was normal wall motion augmentation with no hypokinesis or dyskinesis. CONCLUSION: 1. Decreased exercise tolerance with normal electrocardiograph response to exercise. 2. Normal stress echocardiogram with no evidence of stress-induced ischemia. MMODL / IJN: [id number] /
--- NOTE | 2020-10-15 13:07 | P.CNNES ---
History of Present Illness Consult date: 10/15/20 Requesting physician: Rosa Padron Reason for Consult: syncope History of Present Illness: This is a 40-year-old right-handed woman with medical history of migraine, chronic lower back pain, recurrent kidney stones that presented to the emergency department on 10/14/2019 where the patient was doing and an EEG study on a patient yesterday and all of a sudden the the patient felt hot and sweaty and felt she was about to blackout. During the episode she it tachycardiac and tachypneic but denies shortness of breath. She has blurry of vision of both eyes. Also during the episode she would have numbness of bilateral cheeks and distal fingers tips of hands. She denied passing out. She denies any jerking of any extremities, urinary or bowel incontinence or tongue bite. Patient denies on being on any new medication. She denies of focal weakness, numbness, diplopia, tinnitus. She had a similar event on 09/29/2020 while at work and came to emergency department and was diagnosed with pre-syncope and was discharged the same day with recommendation of echocardiogram and stress test. She had 2-D echocardiogr am on 10/10/20: And it's reported as left ventricular size is normal. Left ventricle wall thickness is normal. Ejection fraction of 55-60%. Mild mitral regurgitation is present. Left atrial size is normal. She had a Holter monitor on 10/10/2020 and was reported as sinus mechanism the baseline rhythm. No ventricular ectopic activity. Rare supraventricular ectopic activity. Symptoms did not correlate with any dysrhythmia. She said last week while at week she was confused and didn't know where she was lasting few seconds. For the past two weeks she has been feeling light-headed going from resting to stand or with prolonged walking. She denies any worsening of stress recently. Of note, she denied history of seizures. She said he had hypoglycemia as child but that resolved. 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 She he to be in an incubator for 1 month. She was told she was deaf over the right ear in 2005 and unknown cause. She has history of migraine, in bilateral occipital region with photophobia, phonophobia as well as nausea and vomitting. She gets 2-3 heads out of a week. She is on Fiorecet and elvavil 20mg qhs. She use to follow-up with Dr. Shine but not longer follows-up with him since see's his PA's only. Migraine is managed by her primary team. She had history of depression but denies any new stressors. She denies of suicidal or homicidal thoughts or plans. Workup in the hospital consisted of: Initial vital signs was blood pressure of 111/76, heart rate is 78, respiratory rate of 20, temperature of 97.7 Fahrenheit oral and pulse ox of 99% on room air. EKG is reported as normal sinus rhythm. Normal EKG. Patient's initial serum glucose is 86. Her sodium was 136. Next line lipid panel is triglycerides 86, cholesterol 219, LDL of 138 and HDL 54. Chest x-ray is reported as no acute cardiopulmonary process. The patient never had any imaging of the brain such as CT of the head or MRI the brain during the previous or during this admission so far. Review of Systems Review of system: The 12 point system was reviewed and apparent positive and negative per HPI. Past Medical History Past Medical History: Hearing Disorder / Deafness Additional Past Medical History / Comment(s): rt ear deafness, migraines History of Any Multi-Drug Resistant Organisms: None Reported Past Surgical History: Section, Cholecystectomy, Tonsillectomy, Tubal Ligation Additional Past Surgical History / Comment(s): x2, rt breast bx-neg Past Anesthesia/Blood Transfusion Reactions: No Reported Reaction Past Psychological History: No Psychological Hx Reported Smoking Status: Never smoker Past Alcohol Use History: None Reported Past Drug Use History: None Reported - Past Family History Mother Family Medical History: Cancer Additional Family Medical History / Comment(s): Breast cancer. Father Family Medical History: Coronary Artery Disease (CAD), Vascular Disorder Additional Family Medical History / Comment(s): born with only 1 kidney and had dillan leg anuerysms Medications and Allergies Home Medications Medication Instructions Recorded Confirmed Type HYDROcodone/APAP 7.5-325MG [[place] 1 tab PO BID PRN 01/09/18 10/14/20 History 7.5-325] Amitriptyline HCl [Elavil] 20 mg PO HS 09/29/20 10/14/20 History Baclofen [Lioresal] 10 mg PO BID PRN 09/29/20 10/14/20 History Butalb/Acetaminophen/Caffeine 1 cap PO Q4H PRN 09/29/20 10/14/20 History [Fioricet 50-300-40 mg Capsule] Furosemide [Lasix] 20 mg PO DAILY PRN 09/29/20 10/14/20 History Ibuprofen [Motrin] 600 mg PO TID PRN 09/29/20 10/14/20 History Phentermine HCl [Adipex-P] 37.5 mg PO DAILY 09/29/20 10/14/20 History Allergies Allergy/AdvReac Type Severity Reaction Status Date / Time adhesive Allergy Itching, Verified 10/14/20 12:38 REDNESS, BLISTERS propoxyphene Allergy Rash/Hives Verified 10/14/20 12:38 [From Darvocet-N] promethazine HCl AdvReac Hallucinati Verified 10/14/20 12:38 [From Phenergan] ons Physical Examination - Vital Signs Vital Signs: Vital Signs Temp Pulse Pulse Resp BP BP Pulse Ox 10/15/20 05:22 97.9 F 81 16 99/67 98 10/14/20 20:00 98.6 F 80 16 113/80 99 10/14/20 19:12 18 10/14/20 14:30 96 17 129/95 98 10/14/20 13:30 20 10/14/20 12:36 97.7 F 78 20 111/76 99 Intake and Output 10/14/20 10/15/20 10/15/20 22:59 06:59 14:59 Other: Voiding Method Toilet # Voids 1 Weight 122.47 kg GENERAL: The patient is lying in bed and is not in acute distress. CHEST: The heart rate is regular rate rhythm. No murmurs to auscultation. No carotid bruit bilaterally. LUNG: Clear to auscultation bilaterally no wheezing noted throughout. Not labored breathing. ABDOMEN/GI: Bowel sounds present in all 4 quadrants. No tenderness to palpation throughout. NEUROLOGICAL: Higher mental function: The patient is awake, alert, oriented to self, place and time. Patient is following commands. No aphasia and no neglect. Cranial nerves: The pupils are round, equal and reactive to light and ac commodation. Visual marrero are full to confrontation throughout. Extraocular movement is intact no nystagmus is noted. Facial sensation is normal to touch throughout. The facial strength is normal throughout. Hearing is normal bilaterally to hand rub. Tongue is midline and moved [id number] without any difficulty. No dysarthria is noted. Shoulder shrug is normal bilaterally. Motor: Gait is deferred. The strength is 5 over 5 throughout. Normal tone and bulk. Cerebellum: Normal finger to nose and heel to pineda bilaterally. Sensation: Sensation is normal to touch throughout. Reflexes (right/left): 2+ throughout. Plantars are downgoing bilaterally. Results Coagulation study: PT of 10.5, INR 1.0 and PTT of 22.1. - Laboratory Findings CBC and BMP: 10/14/20 13:08 10/14/20 13:08 Abnormal Lab Findings: Abnormal Labs 10/14/20 10/14/20 13:08 13:08 Sodium 136 L Cholesterol 209 H LDL Cholesterol, Calc 138 H Assessment and Plan Assessment: Presyncope (with similar episode on 09/29/20). This seem more cardiac in etiology. Episode of confusion last week that lasted for a few seconds Migraine headaches Dyslipidemia History of recurrent kidney stones History of depression Plan: Orthostatic vitals are ordered. Please obtain blood pressure as well as heart rate. If normal proceed to tilt table test. I ordered a routine EEG because of the episode of confusion last week. I'll not start the patient on antiepileptic drug unless there is epileptiform discharges or seizure on the EEG. I also ordered MRI of the brain to rule out any intracranial process. I ordered hemoglobin A1c, vitamin B12 and folate level. I also ordered TSH level. Please keep avoid any hypotensive episodes as well as tried to keep the patient well-hydrated. Patient is scheduled for nuclear stress test today. Also an event monitor was ordered for the patient. Cardiology team is consulted and will defer cardiac management to them. Regarding the patient migraine I recommended the the patient that to be off of Fioricet a possible as well as the to continue discontinuing drink in Pop/caffeinated or non-caffeinated drinks to avoid rebound headaches. She was recommended to follow up with a neurologist regarding management of her migraines as outpatient. I notified her there is newer medications that can help with her migraines or attempts to get Botox injections if she is interested as an outpatient. The plan was discussed with the patient. Thank you for the consultation. Chago Darby M.D. Neuro-hospitalist Time with Patient: Greater than 30
--- NOTE | 2020-10-15 17:47 | MR ---
EXAMINATION TYPE: MR brain wo con DATE OF EXAM: 10/15/2020 COMPARISON: 01/17/2013 HISTORY: Altered mental status Multiplanar multiecho imaging of the brain was performed without contrast. Ventricles have normal size. There is no mass effect nor midline shift. There is no sign of intracran ial hemorrhage. Espinoza-white matter structures have fairly normal signal pattern. There is no evidence of cerebral edema. Corpus callosum appears normal. Brainstem is intact. Sella turcica appears normal. There is no eviden ce of a posterior fossa mass. IMPRESSION: Negative MR scan of the brain..
--- NOTE | 2020-10-15 20:07 | EEG ---
ELECTROENCEPHALOGRAM REPORT DATE OF SERVICE: 10/15/2020 This is a 40-year-old woman who presented to the emergency department for a presyncopal episode. She had brief altered mental status a week ago. This video EEG is obtained to evaluate for seizure and epileptiform activity. RELEVANT MEDICATION: The patient is not on any antiepileptic drug. EEG TYPE: A routine 21-channel EEG is performed with video using the 10/20 electrode placement system. DESCRIPTION: Only wakefulness is obtained. During wakefulness, there is a posterior-dominant rhythm of low to moderate voltage, reactive, well modulated, of 8.5 to 9.5 hertz activity. There is no physiological stage II sleep seen. INTERICTAL AND ICTAL: None. ACTIVATION PROCEDURES: Photic stimulation: Did not evoke a posterior driving response. There is no abnormality with the photic stimulation seen over the bilateral hemispheres. Hyperventilation is not performed. CLINICAL INTERPRETATION: This is a normal routine EEG. There are no focal slowing, epileptiform discharges or seizure on the EEG. Clinical correlation is recommended. MMSAM / RANJANN: [id number] / GENIA
[2020-10-15 20:09] LABS: Hemoglobin A1C 4.8 % (4.0-6.0)
[2020-10-15] MEDS: AMITRIPTYLINE HCL 10 MG TAB PO SCH (20:20)
[2020-10-15 20:32] VITALS: BP 133/82; PULSE 80; RESP 16; TEMP 98
--- NOTE | 2020-10-16 07:32 | P.DS ---
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 Patient denies any cardiac history in the past through which she had ended up coming to the emergency department at [facility] where was seen and evaluated her vital signs continue to show slightly bit rapid pulse otherwise doing well her white blood cell weren't normal platelets were normal hemoglobin and hematocrit patient was off slight bit. Patient and further testing including Holter monitor, echocardiogram and further lab work order. Patient had felt slightly bit better in the middle of all those testing. Patient presented to the emergency department at [facility] today 10/14/2020 consistent with no major abnormality most likely patient had vasovagal at the time. forward the time to today 10/14/2020 patient patient was at work when she developed to have symptom of palpitation with significant shortness of breath with minimum exertion on and off become scary with significant slight tightness with lightheadedness and very close to pass out without having syncope. Patient ended up seen in demurs department lab shows no abnormality CK with troponin was negative. With the significant sign and symptom of shortness of breath with minimal exertion patient be In the hospital with symptom of palpitation and this exertional shortness of breath with minimum exertion she was scared ended up being seen in the emergency department. Patient history was reviewed will be admitted seen cardiology and neurology for further planning including EEG, tilt table study, MRI of the brain. 10/15: Patient has been afebrile, heart rate 81, blood pressure 99/67, pulse ox 98 percent on room air. Monitor has been a sinus rhythm. Troponins negative on 3 draws. Triglycerides 86, cholesterol 209, LDL 138, HDL 54. She has been seen by cardiology BNP 25. Stress echocardiogram is negative and patient cleared for discharge by cardiology. Patient has been seen by neurology and ordered EEG and also ordered MRI of the brain. EEG was normal. MRI of the brain was normal. Hemoglobin A1c 4.8. Vitamin B12 484. Folate level pending. TSH 1.440. Dr. Darby recommended avoiding hypotension and recommended patient be off Fioricet for migraine and also continue discontinuing caffeine beverages. Patient is scheduled for outpatient tilt table test. 30 day event monitor placed prior to discharge. Patient discharged home today in stable condition. Discharge diagnoses: 1 severe dyspnea and shortness of breath, no clear etiology. 2 recurrent episode of presyncope and syncope no clear etiology 3 recurrent episodes chest pain. Acute coronary syndrome ruled out. 4 chronic edema 5 atypical migraine Discharge plan: Home Impression and plan of care have been directed as dictated by the signing physician. Rosa Padron nurse practitioner acting as scribe for signing physician. Patient Condition at Discharge: Good Plan - Discharge Summary Discharge Rx Participant: No New Discharge Prescriptions: Continue HYDROcodone/APAP 7.5-325MG [[place] 7.5-325] 1 tab PO BID PRN PRN Reason: Pain Phentermine HCl [Adipex-P] 37.5 mg PO DAILY Ibuprofen [Motrin] 600 mg PO TID PRN PRN Reason: Pain Furosemide [Lasix] 20 mg PO DAILY PRN PRN Reason: Edema Butalb/Acetaminophen/Caffeine [Fioricet 50-300-40 mg Capsule] 1 cap PO Q4H PRN PRN Reason: Migraine Headache Baclofen [Lioresal] 10 mg PO BID PRN PRN Reason: Muscle Spasm Amitriptyline HCl [Elavil] 20 mg PO HS Discharge Medication List HYDROcodone/APAP 7.5-325MG [[place] 7.5-325] 1 tab PO BID PRN 01/09/18 [History] Amitriptyline HCl [Elavil] 20 mg PO HS 09/29/20 [History] Baclofen [Lioresal] 10 mg PO BID PRN 09/29/20 [History] Butalb/Acetaminophen/Caffeine [Fioricet 50-300-40 mg Capsule] 1 cap PO Q4H PRN 09/29/20 [History] Furosemide [Lasix] 20 mg PO DAILY PRN 09/29/20 [History] Ibuprofen [Motrin] 600 mg PO TID PRN 09/29/20 [History] Phentermine HCl [Adipex-P] 37.5 mg PO DAILY 09/29/20 [History] Follow up Appointment(s)/Referral(s): Tito Azar MD [STAFF PHYSICIAN] - 6 Weeks Tahir Toney MD [Primary Care Provider] - 3 Days Discharge Disposition: HOME SELF-CARE
== END 2020-10-15 21:30 | disposition home or self-care (01) ==
LOC: EC 12:30 → 6NMEDSUR 14:20
PROVIDERS: ADMIT Internal Medicine Geriatric Medicine; ATTEND Internal Medicine Geriatric Medicine
DX: R06.09 Other forms of dyspnea (principal); R07.89 Other chest pain; R55 Syncope and collapse; R06.02 Shortness of breath; G43.009 Migraine without aura, not intractable, without status migrainosus; H91.91 Unspecified hearing loss, right ear; G89.29 Other chronic pain; M54.5 Low back pain; R00.2 Palpitations; E66.01 Morbid (severe) obesity due to excess calories; Z68.41 Body mass index [BMI] 40.0-44.9, adult; R60.9 Edema, unspecified; R11.0 Nausea; R42 Dizziness and giddiness; R61 Generalized hyperhidrosis; R00.0 Tachycardia, unspecified; R20.0 Anesthesia of skin; I34.0 Nonrheumatic mitral (valve) insufficiency; E78.5 Hyperlipidemia, unspecified; F32.9 Major depressive disorder, single episode, unspecified; Z79.1 Long term (current) use of non-steroidal anti-inflammatories (NSAID); Z79.899 Other long term (current) drug therapy; Z88.5 Allergy status to narcotic agent; Z88.8 Allergy status to other drugs, medicaments and biological substances; Z91.048 Other nonmedicinal substance allergy status; Z90.49 Acquired absence of other specified parts of digestive tract; Z98.891 History of uterine scar from previous surgery; Z98.51 Tubal ligation status; Z87.442 Personal history of urinary calculi; Z87.440 Personal history of urinary (tract) infections; Z91.81 History of falling; Z87.891 Personal history of nicotine dependence; Z86.39 Personal history of other endocrine, nutritional and metabolic disease; Z86.79 Personal history of other diseases of the circulatory system; Z82.49 Family history of ischemic heart disease and other diseases of the circulatory system; Z82.79 Family history of other congenital malformations, deformations and chromosomal abnormalities; Z80.3 Family history of malignant neoplasm of breast
CPT/HCPCS: 96374; 99285; 36415; 95816; 93005 ×2; 93270; 93351; 82747; 83880; 80061; 80053; 84443; 82607; 83605; 83735; 84484; 85025; 85610; 85730; 83036; 71046; 70551; G0378 ×2; J2060

== ENCOUNTER → 2020-10-23 | Outpatient (CLI) | payer MEDICAID ==
[2020-10-23 10:00] LABS: Basophils % (A) 1 %; Eosinophils # (A) 0.1 k/uL (0-0.7); Eosinophils % (A) 2 %; HCT 40.8 % (34.0-46.0); HGB 14.1 gm/dL (11.4-16.0); Lymphocytes # (A) 1.6 k/uL (1.0-4.8); Lymphocytes % (A) 29 %; MCH 30.3 pg (25.0-35.0); MCHC 34.5 g/dL (31.0-37.0); Mean Platelet Volume 6.6; Monocytes # (A) 0.3 k/uL (0-1.0); Monocytes % (A) 5 %; Neutrophils # (A) 3.5 k/uL (1.3-7.7); Neutrophils % (A) 62 %; Platelet Count 200 k/uL (150-450); RBC 4.64 m/uL (3.80-5.40); RDW 13.4 % (11.5-15.5); WBC 5.6 k/uL (3.8-10.6)
[2020-10-23 17:27] LABS: Folate, Serum 8.4 ng/mL
[2020-10-23 17:28] LABS: ALT 23 U/L (8-44); AST 15 U/L (13-35); African American GFR (CKD) 123.9 (60.0-200.0); Albumin/Globulin Ratio 2.33 (1.60-3.17); Alkaline Phosphatase 65 U/L (41-126); BUN/Creat Ratio 22.86 Ratio (12.00-20.00); C Reactive Protein <0.4 mg/dL (0.0-0.8); Calcium 8.9 mg/dL (8.7-10.3); Carbon Dioxide 23.9 mmol/L (21.6-31.8); Chloride 107 mmol/L (96-109); Globulin 1.8 g/dL (1.6-3.3); Glucose 100 mg/dL (70-110); Non-African American GFR(CKD) 106.9 (60.0-200.0); Potassium 4.3 mmol/L (3.5-5.5); Sodium 142 mmol/L (135-145); Total Bilirubin 0.2 mg/dL (0.3-1.2)
[2020-10-23 17:45] LABS: Hemoglobin A1C 5.5 % (4.0-6.0)
== END | disposition home or self-care (01) ==
LOC: LABWHC1 09:25
PROVIDERS: ATTEND Family Medicine
DX: E27.40 Unspecified adrenocortical insufficiency (principal); R06.02 Shortness of breath; R73.9 Hyperglycemia, unspecified
CPT/HCPCS: 36415; 80053; 82306; 82607; 82746; 83036; 84425; 84443; 85025; 86140; 86769

== ENCOUNTER 2020-10-28 09:58 | Day surgery (SDC) | payer MEDICAID ==
[2020-10-24 09:58] VITALS: BMI 44.6
[~2020-10-28 09:58] MED LIST: SODIUM CHLORIDE 0.9% 1,000 ML IV SCH
[2020-10-28 10:22] VITALS: BP 113/67; PULSE 73; RESP 18; TEMP 97.4
[2020-10-28] MEDS ORDERED: SODIUM CHLORIDE 0.9% 500 ML 500 ML IV ONE (10:22)
--- NOTE | 2020-11-06 17:27 | P.EPPROC ---
- EP Procedure Note Electrophysiology Procedure Note: Diagnosis Recurrent syncope 12-lead EKG Sinus mechanism normal CA narrow QRS normal ST segments normal QT interval Tilt table test Baseline blood pressure 115/67 mmHg, Baseline heart rate 68 beats a minute Patient was tilted upright at night left 70 per protocol there was no significant change in her heart rate and blood pressure She complained of dizziness when she stood up and very tired. She completed of shortness of breath. After 20 minutes she felt very dizzy and said she could not tolerate standing any further Her blood pressure was 110/57 mmHg and a pulse rate was in the 60s She was laid supine at the end of the procedure impression Normal twelve-lead EKG Normal heart rate and blood pressure response to upright tilting Symptoms of being dizzy a tired and short of breath did not correlate with any abnormalities of blood pressure or heart rate
== END 2020-10-28 12:08 | disposition home or self-care (01) ==
LOC: CATHEP 09:58
PROVIDERS: ATTEND Internal Medicine Clinical Cardiac Electrophysiology
DX: R42 Dizziness and giddiness (principal); G43.909 Migraine, unspecified, not intractable, without status migrainosus; G89.29 Other chronic pain; R60.0 Localized edema; E66.01 Morbid (severe) obesity due to excess calories; Z68.41 Body mass index [BMI] 40.0-44.9, adult; H91.91 Unspecified hearing loss, right ear; Z98.891 History of uterine scar from previous surgery; Z90.49 Acquired absence of other specified parts of digestive tract; Z98.51 Tubal ligation status; Z90.89 Acquired absence of other organs; Z98.890 Other specified postprocedural states; Z80.3 Family history of malignant neoplasm of breast; Z82.49 Family history of ischemic heart disease and other diseases of the circulatory system; Z79.899 Other long term (current) drug therapy; Z88.5 Allergy status to narcotic agent; Z88.8 Allergy status to other drugs, medicaments and biological substances; Z91.09 Other allergy status, other than to drugs and biological substances
CPT/HCPCS: 81025; 93005; 93660

== ENCOUNTER → 2020-10-28 | Outpatient (CLI) | payer MEDICAID | END | disposition home or self-care (01) | LOC: LABWHC1 07:39 | PROVIDERS: ATTEND Family Medicine | DX: E27.40 Unspecified adrenocortical insufficiency (principal) | CPT/HCPCS: 36415; 82533 ==

== ENCOUNTER → 2020-10-30 | Outpatient (CLI) | payer MEDICAID ==
[2020-10-30 11:02] LABS: ABG HCO3 21 mmol/L (21-25); ABG Oxygen Saturation 99.3 % (94-97); ABG PCO2 26 mmHg (35-45); ABG PH 7.52 (7.35-7.45); ABG PO2 122 mmHg (83-108); Allen Test Performed? Yes
[2020-10-30 18:28] LABS: Anti-Smith Ab Interp NEGATIVE (NEGATIVE)
[2020-10-30 22:31] LABS: C Reactive Protein <0.4 mg/dL (0.0-0.8); Creatine Kinase 31 U/L (26-186); Rheumatoid Factor, Qnt 5 IU/mL (0-15)
[2020-10-31 16:04] LABS: ANA Pattern Speckled
== END | disposition home or self-care (01) ==
LOC: LABWHC1 10:38
PROVIDERS: ATTEND Internal Medicine Critical Care Medicine
DX: R06.00 Dyspnea, unspecified (principal)
CPT/HCPCS: 36415; 36600; 82085; 82550; 82805; 85652; 86038; 86039; 86140; 86235; 86431

== ENCOUNTER → 2020-11-14 | Outpatient (CLI) | payer MEDICAID ==
[2020-11-14 15:32] LABS: Protein, Total 6.6 g/dL (6.2-8.2)
[2020-11-14 17:31] LABS: Anti-DNA, DS unit <1.0 IU/mL; Cardiolipin Ab IgG Interp NEGATIVE (NEGATIVE); Cardiolipin Ab IgM Interp NEGATIVE (NEGATIVE); Centromere Antibody <0.2 AI; Centromere Antibody Interp NEGATIVE (NEGATIVE); Cyclic Citrull Pep IgG Unit <0.5 U/mL; Cyclic Citrullinated Pep IgG NEGATIVE (NEGATIVE); DNA Double-Stranded NEGATIVE (NEGATIVE); Scleroderma SC-70 Ab <0.2 AI
[2020-11-14 19:38] LABS: Uric Acid 3.6 mg/dL (2.9-7.7)
[2020-11-15 17:37] LABS: Hepatitis B Surface Antigen Non-Reactive (Non-Reactive); Hepatitis C IgG Antibody Non-Reactive (Non-Reactive)
== END | disposition home or self-care (01) ==
LOC: LABWHC1 10:05
PROVIDERS: ATTEND Internal Medicine Rheumatology
DX: R76.8 Other specified abnormal immunological findings in serum (principal)
CPT/HCPCS: 36415; 82164; 83520; 83883; 84165; 84550; 85613; 85730; 86038; 86039; 86147; 86160; 86162; 86200; 86225; 86235; 86255; 86334; 86698; 86803; 86812; 87340

== ENCOUNTER → 2020-11-19 | Outpatient (CLI) | payer MEDICAID ==
--- NOTE | 2020-11-20 14:42 | MM ---
Reason for exam: screening (asymptomatic). Last mammogram was performed 1 year and 2 months ago. History: Patient had first child at age 29. Family history of breast cancer in mother, breast cancer in maternal grandmother, breast cancer in paternal grandmother, and breast cancer in 2 maternal aunts. Benign US biopsy breast VAD RT of the right breast, January 10, 2018. Took hormonal contraceptives for 25 years. Physical Findings: A clinical breast exam by your physician is recommended on an annual basis and results should be correlated with mammographic findings. MG 3D Screening Mammo W/Cad Bilateral CC and MLO view(s) were taken. Prior study comparison: September 04, 2019, bilateral MG 3d screening mammo w/cad. December 16, 2017, bilateral MG 3d screening mammo w/cad. The breast tissue is heterogeneously dense. This may lower the sensitivity of mammography. Previous mammotome biopsy in the right breast. No significant changes when compared with prior studies. ASSESSMENT: Negative, BI-RAD 1 RECOMMENDATION: Routine screening mammogram of both breasts in 1 year.
== END | disposition home or self-care (01) ==
LOC: RADMAMWWP 07:13
PROVIDERS: ATTEND Family Medicine
DX: Z12.31 Encounter for screening mammogram for malignant neoplasm of breast (principal)
CPT/HCPCS: 77063; 77067

== ENCOUNTER → 2020-11-21 | Outpatient (CLI) | payer MEDICAID ==
--- NOTE | 2020-11-23 10:13 | PE ---
EXAMINATION TYPE: PET CT fusion skull to thigh DATE OF EXAM: 11/21/2020 COMPARISON: CTA chest October 01, 2020. 3-D bilateral breast mammogram November 19, 2020 BI-RADS 1. HISTORY: Breast cancer ?, history of abnormal mammogram. TECHNIQUE: Following the intravenous administration of 11.84 mCi of F-18 FDG, whole body images are performed from the skull base to the midthigh. Images are reviewed on the computer in the coronal, a xial, and sagittal planes. Reconstructed rotating images are created on independent workstation and reviewed on the computer. A localization and attenuation correction CT is performed in conjunction with the PET scan. Blood glucose level equals 97. SCAN: Initial Scan FINDINGS: SKULL BASE AND NECK: No areas of abnormal hypermetabolic uptake. CHEST, MEDIASTINUM, AND HILAR REGION: Scattered fibroglandular tissue throughout both breasts. No diane picious axillary adenopathy. No areas of abnormal hypermetabolic uptake throughout the thorax includi ng bilateral breasts and axillary regions. ABDOMEN AND PELVIS: No areas of abnormal hypermetabolic uptake. Normal excretion is seen. Anteverted uterus with central hypermetabolic uptake can be present in a menstruating female. Correlate clinical ly to exclude abnormal bleeding and possible pathology. OSSEOUS STRUCTURES: No areas of abnormal hypermetabolic uptake. OTHER CT: Exam slightly suboptimal secondary to patient's large body habitus. Tiny mucous retention c yst or polyp in the anterior right maxillary sinus. Low lung volumes. Cholecystectomy clips. Small Nonobstructing calculi lower pole left kidney. IMPRESSION: No abnormal hypermetabolic uptake to suggest breast neoplasm or axillary adenopathy. Atte ntion to uterus otherwise unremarkable study.
== END | disposition home or self-care (01) ==
LOC: RADPETMAIN 08:54
PROVIDERS: ATTEND Family Medicine
DX: C50.811 Malignant neoplasm of overlapping sites of right female breast (principal); C50.812 Malignant neoplasm of overlapping sites of left female breast; Z87.898 Personal history of other specified conditions
CPT/HCPCS: 78815; A9552

== ENCOUNTER → 2020-12-23 | Outpatient (CLI) | payer MEDICAID ==
--- NOTE | 2020-12-23 16:01 | US ---
EXAMINATION TYPE: US axilla LT DATE OF EXAM: 12/23/2020 COMPARISON: NONE CLINICAL HISTORY: 40-year-old female L72.3 Sebaceous cyst, L08.9 unspecified level infection of the s kin and subcutaneous tissues. Red, palpable area lateral axilla. [employer] notes: Patient has a scr ipt for antibiotics. TECHNIQUE: Targeted ultrasound at the site of patient's redness and palpable abnormality in the left axilla. FINDINGS: [employer] notes: At site of redness and patient palpable site is a heterogeneous hypoechoic, possib ly cystic lesion at or just deep to the skin layer measuring 2.5 x 2.2 x 0.7 cm. There is increased v ascularity along the deep margin and posterior through transmission demonstrated. IMPRESSION: A 2.5 x 2.2 x 0.7 cm lesion at or just to the skin layer at the patient's site of redness and palpabl e abnormality within the left axilla. There is some associated hyperemia and posterior through transm ission suggesting possible inflamed or infected sebaceous cyst. Consider dermatology referral. 6-8 we ek follow-up ultrasound can reassess.
== END | disposition home or self-care (01) ==
LOC: RADUSWWP 13:29
PROVIDERS: ATTEND Family Medicine
DX: L72.3 Sebaceous cyst (principal); L08.9 Local infection of the skin and subcutaneous tissue, unspecified

== ENCOUNTER 2021-01-02 04:15 | Emergency (ER) | payer MEDICAID ==
--- NOTE | 2021-01-02 04:39 | ED ---
Chest Pain HPI - General Chief Complaint: Chest Pain Stated Complaint: Chest pain Time Seen by Provider: 01/02/21 04:34 Source: patient, EMS Mode of arrival: EMS Limitations: no limitations - History of Present Illness MD Complaint: chest pain Onset/Timin -: hour(s) Onset: awoke with symptoms Pain Location: substernal Pain Radiation: back Severity: severe Quality: sharp Consistency: constant Improves With: nothing Worsens With: nothing Treatments Prior to Arrival: none - Related Data On Oral Contraceptives: No Home Medications Medication Instructions Recorded Confirmed HYDROcodone/APAP 7.5-325MG [[place] 1 tab PO BID PRN 01/09/18 10/28/20 7.5-325] Amitriptyline HCl [Elavil] 20 mg PO HS 09/29/20 10/28/20 Baclofen [Lioresal] 10 mg PO BID PRN 09/29/20 10/28/20 Butalb/Acetaminophen/Caffeine 1 cap PO Q4H PRN 09/29/20 10/28/20 [Fioricet 50-300-40 mg Capsule] ALPRAZolam [Xanax] 0.5 mg PO BID 10/24/20 10/28/20 Hydrocortisone 10 mg PO BID 10/24/20 10/28/20 Allergies Allergy/AdvReac Type Severity Reaction Status Date / Time adhesive Allergy Itching, Verified 01/02/21 04:19 REDNESS, BLISTERS propoxyphene Allergy Rash/Hives Verified 01/02/21 04:19 [From Darvocet-N] promethazine HCl AdvReac Hallucinati Verified 01/02/21 04:19 [From Phenergan] ons Review of Systems ROS Statement: Those systems with pertinent positive or pertinent negative responses have been documented in the HPI. ROS Other: All systems not noted in ROS Statement are negative. Constitutional: Denies: fever, chills Respiratory: Denies: cough, dyspnea Cardiovascular: Reports: chest pain. Denies: palpitations, orthopnea, edema, syncope Gastrointestinal: Denies: abdominal pain, nausea, vomiting, diarrhea Genitourinary: Denies: dysuria, hematuria Musculoskeletal: Denies: back pain Skin: Denies: rash Neurological: Denies: headache, weakness, numbness EKG Findings - EKG Results: EKG: interpreted by ERMD, WNL, sinus rhythm, normal axis, normal QRS, normal ST/T, no acute changes Past Medical History Past Medical History: Hearing Disorder / Deafness Additional Past Medical History / Comment(s): rt ear deafness, migraines History of Any Multi-Drug Resistant Organisms: None Reported Past Surgical History: Section, Cholecystectomy, Tonsillectomy, Tubal Ligation Additional Past Surgical History / Comment(s): x2, rt breast bx-neg Past Anesthesia/Blood Transfusion Reactions: No Reported Reaction Past Psychological History: No Psychological Hx Reported Smoking Status: Never smoker Past Alcohol Use History: None Reported Past Drug Use History: None Reported - Past Family History Mother Family Medical History: Cancer Additional Family Medical History / Comment(s): Breast cancer. Father Family Medical History: Coronary Artery Disease (CAD), Vascular Disorder Additional Family Medical History / Comment(s): born with only 1 kidney and had dillan leg anuerysms General Exam General appearance: alert, in no apparent distress Head exam: Present: atraumatic, normocephalic Eye exam: Present: normal appearance. Absent: scleral icterus, conjunctival injection Neck exam: Present: normal inspection, full ROM Respiratory exam: Present: normal lung sounds bilaterally. Absent: respiratory distress, wheezes, rales, rhonchi, stridor, chest wall tenderness Cardiovascular Exam: Present: regular rate, normal rhythm, normal heart sounds. Absent: systolic murmur, diastolic murmur, rubs, gallop GI/Abdominal exam: Present: soft. Absent: distended, tenderness, guarding, rebound, rigid, mass Extremities exam: Present: normal inspection, normal capillary refill. Absent: pedal edema, calf tenderness Back exam: Present: normal inspection. Absent: CVA tenderness (R), CVA tenderness (L) Neurological exam: Present: alert Skin exam: Present: warm, dry, intact, normal color. Absent: rash Course Vital Signs 01/02/21 01/02/21 01/02/21 04:17 05:00 06:00 Temperature 98.1 F Pulse Rate 81 68 74 Respiratory 18 18 18 Rate Blood Pressure 130/94 114/74 96/61 O2 Sat by Pulse 97 94 L 94 L Oximetry Disposition Clinical Impression: Chest pain Disposition: HOME SELF-CARE Condition: Good Instructions (If sedation given, give patient instructions): Chest Pain (ED) Is patient prescribed a controlled substance at d/c from ED?: No Referrals: Tahir Toney MD [Primary Care Provider] - 1-2 days
[2021-01-02] MEDS ORDERED: MORPHINE SULFATE 4 MG/ML SYRINGE IV STA ×2 (04:49→06:53)
--- NOTE | 2021-01-02 05:23 | XR ---
EXAM: XR Chest, 2 Views CLINICAL HISTORY: ITS.REASON XR Reason: Chest Pain TECHNIQUE: Frontal and lateral views of the chest. COMPARISON: Chest CT October 01, 2020. FINDINGS: Lungs: Unremarkable. No consolidation. Pleural space: Unremarkable. No pneumothorax. Heart: Unremarkable. No cardiomegaly. Mediastinum: Unremarkable. Bones/joints: Unremarkable. IMPRESSION: No focal infiltrate.
[2021-01-02 05:25] LABS: Basophils % (A) 1 %; Eosinophils # (A) 0.2 k/uL (0-0.7); Eosinophils % (A) 2 %; HCT 36.9 % (34.0-46.0); HGB 13.1 gm/dL (11.4-16.0); Lymphocytes # (A) 2.3 k/uL (1.0-4.8); Lymphocytes % (A) 36 %; MCH 30.8 pg (25.0-35.0); MCHC 35.5 g/dL (31.0-37.0); MCV 86.8 fL (80.0-100.0); Mean Platelet Volume 6.7; Monocytes # (A) 0.2 k/uL (0-1.0); Monocytes % (A) 4 %; Neutrophils # (A) 3.6 k/uL (1.3-7.7); Neutrophils % (A) 56 %; Platelet Count 236 k/uL (150-450); RBC 4.25 m/uL (3.80-5.40); RDW 13.5 % (11.5-15.5); WBC 6.4 k/uL (3.8-10.6)
[2021-01-02 05:34] LABS: Potassium 3.8 mmol/L (3.5-5.1)
[2021-01-02 05:36] LABS: ALT 33 U/L (4-34); AST 40 U/L (14-36); African American GFR (CKD) >90 (>60 ml/min/1.73 sqM); Albumin 3.5 g/dL (3.5-5.0); Alkaline Phosphatase 61 U/L (38-126); Amylase 47 U/L (30-110); Anion Gap 6 mmol/L; Blood Urea Nitrogen 16 mg/dL (7-17); Calcium 8.7 mg/dL (8.4-10.2); Carbon Dioxide 24 mmol/L (22-30); Chloride 107 mmol/L (98-107); Glucose 95 mg/dL (74-99); Lipase 58 U/L (23-300); Magnesium 1.9 mg/dL (1.6-2.3); Non-African American GFR(CKD) >90 (>60 ml/min/1.73 sqM); Sodium 137 mmol/L (137-145); Total Bilirubin 0.3 mg/dL (0.2-1.3); Total Protein 6.1 g/dL (6.3-8.2)
[2021-01-02 06:12] LABS: D-Dimer 0.22 mg/L FEU (<0.60); INR 0.9 (<1.2); Partial Thromboplastin Time 21.8 sec (22.0-30.0)
[2021-01-02 07:39] VITALS: BP 105/70; PULSE 71; RESP 16; TEMP 97.9
== END 2021-01-02 07:38 | disposition home or self-care (01) ==
LOC: EC 04:15
DX: U07.1 COVID-19 (principal); G43.909 Migraine, unspecified, not intractable, without status migrainosus; H91.91 Unspecified hearing loss, right ear
CPT/HCPCS: 36415; 93005; 85379; 80053; 82150; 83690; 83735; 84484; 85025; 85610; 85730; 87635; 71046; 99285; 96374; 96376; J2270

== ENCOUNTER → 2022-02-18 | Outpatient (CLI) | payer MEDICAID ==
--- NOTE | 2022-02-18 14:55 | MM ---
Reason for Exam: Screening (asymptomatic). Last mammogram was performed 1 year(s) and 3 month(s) ago. Patient History: Menarche at age 6. First Full-Term at age 29. Late child-bearing (after 30). Patient used Hormonal Contraceptives for 25 years. 01/10/2018, Benign Core Biopsy on the right side. Paternal grandmother had breast cancer. Maternal grandmother had breast cancer at or over age 50. Maternal aunt had breast cancer under age 50. Maternal aunt had breast cancer under age 50. Mother had breast cancer at or over age 50. Risk Values: [place]aye 5 year model risk: 2.5%. NCI Lifetime model risk: 24.3%. Film Views: Bilateral CC views were taken. Bilateral MLO views were taken. Prior Study Comparison: 08/29/2018 Right Diagnostic Mammogram, [facility]. 09/04/2019 Bilateral Screening Mammogram, [facility]. 11/19/2020 Bilateral Screening Mammogram, [facility]. Tissue Density: There are scattered fibroglandular densities. Findings: Analyzed By CAD. There is no suspicious group of microcalcifications or new suspicious mass in either breast. There is a prior core marker within the right breast. Overall Assessment: Benign, BI-RAD 2 Management: Screening Mammogram of both breasts in 1 year. A clinical breast exam by your physician is recommended on an annual basis and results should be correlated with mammographic findings. Electronically signed and approved by: Luca Poole D.O. Radiologis
== END | disposition home or self-care (01) ==
LOC: RADMAMWWP 08:03
PROVIDERS: ATTEND Family Medicine
DX: Z12.31 Encounter for screening mammogram for malignant neoplasm of breast (principal); Z80.3 Family history of malignant neoplasm of breast
CPT/HCPCS: 77063; 77067

== ENCOUNTER 2022-03-07 01:45 | Emergency (ER) | payer MEDICAID ==
[2022-03-07 02:00] VITALS: TEMP 98
[2022-03-07] MEDS ORDERED: SODIUM CHLORIDE 0.9% 1,000 ML IV STA (02:04)
[2022-03-07] MEDS ORDERED: KETOROLAC 15 MG/ML 1 ML VIAL IVP STA (02:04)
[2022-03-07] MEDS ORDERED: MORPHINE SULFATE 4 MG/ML SYRINGE IV STA (02:04)
[2022-03-07] MEDS ORDERED: ONDANSETRON 4 MG/2 ML VIAL IVP STA (02:04)
--- NOTE | 2022-03-07 02:31 | ED ---
Abdominal Pain HPI - General Chief Complaint: Urogenital Stated Complaint: LT flank pain Time Seen by Provider: 03/07/22 02:03 Source: patient, RN notes reviewed, old records reviewed Mode of arrival: ambulatory Limitations: no limitations - History of Present Illness Initial Comments: This is a 41-year-old female to the emergency department for evaluation she presents today for evaluation of sudden onset abdominal pain well prior to arrival history of kidney stones before and this feels like kidney stones. Patient is severe nausea no vomiting. No trauma no travel history no sick contacts. MD Complaint: abdominal pain -: hour(s) (1) Location: L flank Radiation: suprapubic Migration to: L flank Severity: severe Severity scale (1-10): 10 Quality: sharp Consistency: constant Improves With: nothing Worsens With: nothing Associated Symptoms: nausea Treatments Prior to Arrival: other (none) - Related Data Home Medications Medication Instructions Recorded Confirmed HYDROcodone/APAP 7.5-325MG [[place] 1 tab PO BID PRN 01/09/18 10/28/20 7.5-325] Amitriptyline HCl [Elavil] 20 mg PO HS 09/29/20 10/28/20 Baclofen [Lioresal] 10 mg PO BID PRN 09/29/20 10/28/20 Butalb/Acetaminophen/Caffeine 1 cap PO Q4H PRN 09/29/20 10/28/20 [Fioricet 50-300-40 mg Capsule] ALPRAZolam [Xanax] 0.5 mg PO BID 10/24/20 10/28/20 Hydrocortisone 10 mg PO BID 10/24/20 10/28/20 Allergies Allergy/AdvReac Type Severity Reaction Status Date / Time adhesive Allergy Itching, Verified 03/07/22 02:00 REDNESS, BLISTERS propoxyphene Allergy Rash/Hives Verified 03/07/22 02:00 [From Darvocet-N] promethazine HCl AdvReac Hallucinati Verified 03/07/22 02:00 [From Phenergan] ons Review of Systems ROS Statement: Those systems with pertinent positive or pertinent negative responses have been documented in the HPI. ROS Other: All systems not noted in ROS Statement are negative. Past Medical History Past Medical History: Hearing Disorder / Deafness Additional Past Medical History / Comment(s): rt ear deafness, migraines, kidney stones History of Any Multi-Drug Resistant Organisms: None Reported Past Surgical History: Section, Cholecystectomy, Tonsillectomy, Tubal Ligation Additional Past Surgical History / Comment(s): x2, rt breast bx-neg Past Anesthesia/Blood Transfusion Reactions: No Reported Reaction Past Psychological History: No Psychological Hx Reported Smoking Status: Never smoker Past Alcohol Use History: None Reported Past Drug Use History: None Reported - Past Family History Mother Family Medical History: Cancer Additional Family Medical History / Comment(s): Breast cancer. Father Family Medical History: Coronary Artery Disease (CAD), Vascular Disorder Additional Family Medical History / Comment(s): born with only 1 kidney and had dillan leg anuerysms General Exam General appearance: alert, in no apparent distress, anxious Head exam: Present: atraumatic, normocephalic, normal inspection Eye exam: Present: normal appearance, PERRL, EOMI. Absent: scleral icterus, conjunctival injection, periorbital swelling ENT exam: Present: normal exam, mucous membranes moist Neck exam: Present: normal inspection. Absent: tenderness, meningismus, lymphadenopathy Respiratory exam: Present: normal lung sounds bilaterally. Absent: respiratory distress, wheezes, rales, rhonchi, stridor Cardiovascular Exam: Present: regular rate, normal rhythm, normal heart sounds. Absent: systolic murmur, diastolic murmur, rubs, gallop, clicks GI/Abdominal exam: Present: soft, normal bowel sounds. Absent: distended, tenderness, guarding, rebound, rigid Extremities exam: Present: normal inspection, full ROM, normal capillary refill. Absent: tenderness, pedal edema, joint swelling, calf tenderness Back exam: Present: normal inspection Neurological exam: Present: alert, oriented X3, CN II-XII intact Psychiatric exam: Present: normal affect, normal mood Skin exam: Present: warm, dry, intact, normal color. Absent: rash Course Vital Signs 03/07/22 03/07/22 01:58 03:03 Temperature 98 F Pulse Rate 76 70 Respiratory 19 75 H Rate Blood Pressure 138/90 137/63 O2 Sat by Pulse 98 97 Oximetry - Reevaluation(s) Reevaluation #1: 03/07/22 02:31 Medical record is reviewed Reevaluation #2: 03/07/22 03:08 Patient has adequate current pain control Reevaluation #3: 03/07/22 03:08 Patient is informed of results and questions have been answered Medical Decision Making - Medical Decision Making 41 female who is presented today for evaluation of abdominal pain with left- sided kidney stone. Kidney stones small to pass likely, patient follow-up with urology of unable patient given pain control resting couple without can be discharged home - Lab Data Result diagrams: 03/07/22 02:30 Lab Results 03/07/22 Range/Units 02:30 WBC 9.5 (3.8-10.6) k/uL RBC 4.85 (3.80-5.40) m/uL Hgb 14.1 (11.4-16.0) gm/dL Hct 43.6 (34.0-46.0) % MCV 89.9 (80.0-100.0) fL MCH 29.0 (25.0-35.0) pg MCHC 32.2 (31.0-37.0) g/dL RDW 13.6 (11.5-15.5) % Plt Count 314 (150-450) k/uL MPV 7.0 Neutrophils % 47 % Lymphocytes % 40 % Monocytes % 5 % Eosinophils % 3 % Basophils % 2 % Neutrophils # 4.5 (1.3-7.7) k/uL Lymphocytes # 3.8 (1.0-4.8) k/uL Monocytes # 0.5 (0-1.0) k/uL Eosinophils # 0.3 (0-0.7) k/uL Basophils # 0.1 (0-0.2) k/uL - Radiology Data Radiology results: report reviewed (CT of the abdomen and pelvis is positive for kidney stone), image reviewed Disposition Clinical Impression: Intractable pain, Nausea and vomiting, Ureterolithiasis, Left ureteral calculus Disposition: HOME SELF-CARE Condition: Good Instructions (If sedation given, give patient instructions): Kidney Stones (ED) Is patient prescribed a controlled substance at d/c from ED?: No Referrals: Tahir Toney MD [Primary Care Provider] - 1-2 days Manny Hanson MD [STAFF PHYSICIAN] - 1-2 days
[2022-03-07] MEDS ORDERED: HYDROmorphone 1 MG/ML 1 ML SYRINGE IVP STA (02:45)
[2022-03-07 02:53] LABS: Basophils # (A) 0.1 k/uL (0-0.2); Basophils % (A) 2 %; Eosinophils # (A) 0.3 k/uL (0-0.7); Eosinophils % (A) 3 %; HCT 43.6 % (34.0-46.0); HGB 14.1 gm/dL (11.4-16.0); Lymphocytes # (A) 3.8 k/uL (1.0-4.8); Lymphocytes % (A) 40 %; MCHC 32.2 g/dL (31.0-37.0); MCV 89.9 fL (80.0-100.0); Monocytes # (A) 0.5 k/uL (0-1.0); Monocytes % (A) 5 %; Neutrophils # (A) 4.5 k/uL (1.3-7.7); Neutrophils % (A) 47 %; Platelet Count 314 k/uL (150-450); RBC 4.85 m/uL (3.80-5.40); RDW 13.6 % (11.5-15.5); WBC 9.5 k/uL (3.8-10.6)
--- NOTE | 2022-03-07 02:56 | CT ---
EXAMINATION TYPE: CT abdomen pelvis wo con DATE OF EXAM: 03/07/2022 COMPARISON: PET CT scan 11/21/2020 HISTORY: pain CT DLP: 1503 mGycm Automated exposure control for dose reduction was used. Images obtained with no contrast from the diaphragm to the floor the pelvis. The lung bases are clear. No pleural effusion. Heart size is normal. No pericardial effusion. Liver and spleen are intact. There are clips from cholecystectomy. There is no pancreatic mass. Comm on bile duct is large and measures 2.2 cm but no dilation of the intrahepatic bile ducts. There is no adrenal mass. Spleen measures 13.5 cm. Kidneys have normal size. There is mild left-sided hydronephrosis and hydroureter. There is evidence of 4 mm calculus in the distal left ureter. There are multiple left-sided renal calculi that measure up to 6 mm. Right kidney shows no sign of stone or obstruction. There is no retroperitoneal adenopathy. Appendix is inferior and appears normal. Uterus is anteverted. No pelvic mass. No free fluid in the pelvis. The lumbar vertebrae have normal alignment. Posterior elements are intact. No compression fracture. D isc spaces are fairly normal. The bony pelvis is intact. The hip joints are intact. There is no lumba r paraspinal mass. IMPRESSION: Obstructing calculus in the distal left ureter with mild left-sided hydronephrosis and hydroureter. M ild splenomegaly. Unchanged. Renal obstruction is new compared to old exam.
[2022-03-07] MEDS ORDERED: TAMSULOSIN 0.4 MG CAP.ER.24H PO STA (02:58)
[2022-03-07] MEDS ORDERED: ACET/COD 300 MG/30 MG STARTER PACK 6 TAB BTL PO STA (02:58)
[2022-03-07] MEDS ORDERED: ONDANSETRON 4 MG ODT STARTER PACK 2 TAB BTL PO STA (02:58)
[2022-03-07 03:08] LABS: ALT 21 U/L (4-34); AST 22 U/L (14-36); African American GFR (CKD) >90 (>60 ml/min/1.73 sqM); Albumin 4.4 g/dL (3.5-5.0); Alkaline Phosphatase 64 U/L (38-126); Amylase 41 U/L (30-110); Anion Gap 10 mmol/L; Blood Urea Nitrogen 10 mg/dL (7-17); Calcium 9.2 mg/dL (8.4-10.2); Carbon Dioxide 28 mmol/L (22-30); Chloride 99 mmol/L (98-107); Glucose 106 mg/dL (74-99); Lipase 67 U/L (23-300); Non-African American GFR(CKD) 84 (>60 ml/min/1.73 sqM); Potassium 3.6 mmol/L (3.5-5.1); Sodium 137 mmol/L (137-145); Total Bilirubin 0.4 mg/dL (0.2-1.3); Total Protein 7.2 g/dL (6.3-8.2)
[2022-03-07] MEDS ORDERED: MORPHINE SULFATE 4 MG/ML SYRINGE IVP STA (03:08)
[2022-03-07] MEDS ORDERED: IBUPROFEN 600 MG STARTER PACK 4 TAB BTL PO STA (03:08)
[2022-03-07 03:44] VITALS: BP 116/60; PULSE 81; RESP 18
== END 2022-03-07 03:43 | disposition home or self-care (01) ==
LOC: EC 01:45
DX: R10.9 Unspecified abdominal pain (principal); N13.2 Hydronephrosis with renal and ureteral calculous obstruction; Z88.8 Allergy status to other drugs, medicaments and biological substances
CPT/HCPCS: 80053; 82150; 83690; 85025; 74176; 99284; 96374; 96375; 96361; J2270; J2405; J1170; J1885; S0119; 36415

== ENCOUNTER → 2022-10-14 | Outpatient (CLI) | payer MEDICAID ==
[2022-10-14 11:42] LABS: Basophils # (A) 0.05 X 10*3/uL (0.00-0.10); Basophils % (A) 0.7 %; Eosinophils # (A) 0.14 X 10*3/uL (0.04-0.35); HCT 41.4 % (37.2-46.3); HGB 13.7 g/dL (12.0-15.0); Immature Grans, Automated 0.3 %; Lymphocytes # (A) 2.11 X 10*3/uL (0.90-5.00); Lymphocytes % (A) 30.4 %; MCH 31.5 pg (27.0-32.0); MCHC 33.1 g/dL (32.0-37.0); MCV 95.2 fL (80.0-97.0); Mean Platelet Volume 9.5 fL (9.5-12.2); Monocytes # (A) 0.54 X 10*3/uL (0.20-1.00); Monocytes % (A) 7.8 %; NRBC Per 100 WBC 0 /100 WBCS (0.0-0.0); Neutrophils # (A) 4.09 X 10*3/uL (1.80-7.70); Neutrophils % (A) 58.8 %; Platelet Count 232 X 10*3/uL (140-440); RBC 4.35 X 10*6/uL (4.10-5.20); RDW 12.7 % (11.5-14.5); WBC 6.95 X 10*3/uL (4.50-10.00)
[2022-10-14 16:11] LABS: ALT 17 U/L (8-44); AST 13 U/L (13-35); African American GFR (CKD) 101.6 (60.0-200.0); Albumin/Globulin Ratio 1.76 (1.60-3.17); Alkaline Phosphatase 49 U/L (41-126); BUN/Creat Ratio 14.48 Ratio (12.00-20.00); Blood Urea Nitrogen 11.8 mg/dL (9.0-27.0); Calcium 9.3 mg/dL (8.7-10.3); Carbon Dioxide 25.7 mmol/L (20.0-27.5); Chloride 104 mmol/L (96-109); Chol/HDL Ratio 3.39 Ratio; Globulin 2.3 g/dL (1.6-3.3); Glucose 83 mg/dL (70-110); LDL Cholesterol,Calculated 106.9 mg/dL (0.0-131.0); Non-African American GFR(CKD) 87.7 (60.0-200.0); Potassium 4.1 mmol/L (3.5-5.5); Sodium 139 mmol/L (135-145); Total Protein 6.3 g/dL (6.2-8.2)
== END | disposition home or self-care (01) ==
LOC: LABWHC1 07:16
PROVIDERS: ATTEND Family Medicine
DX: Z00.00 Encounter for general adult medical examination without abnormal findings (principal); E55.9 Vitamin D deficiency, unspecified
CPT/HCPCS: 36415; 80053; 80061; 82306; 84443; 85025

== ENCOUNTER → 2023-08-05 | Outpatient (CLI) | payer MEDICAID ==
--- NOTE | 2023-08-05 08:34 | MM ---
Reason for Exam: Screening (asymptomatic). Last mammogram was performed 1 year(s) and 6 month(s) ago. Patient History: Menarche at age 6. First Full-Term at age 29. Late child-bearing (after 30). Patient used Hormonal Contraceptives for 25 years. 01/10/2018, Benign Core Biopsy on the right side. Paternal grandmother had breast cancer. Maternal grandmother had breast cancer at or over age 50. Maternal aunt had breast cancer under age 50. Maternal aunt had breast cancer under age 50. Mother had breast cancer at or over age 50. Last menstrual period: 07/23/2023 Risk Values: Faye 5 year model risk: 2.9%. NCI Lifetime model risk: 23.8%. Prior Study Comparison: 09/04/2019 Bilateral Screening Mammogram, [facility]. 11/19/2020 Bilateral Screening Mammogram, [facility]. 02/18/2022 Bilateral MG 3D screening mammo w/cad, [facility]. Tissue Density: The breast tissue is heterogeneously dense. This may lower the sensitivity of mammography. Findings: Analyzed By CAD. There is no suspicious group of microcalcifications within either breast. No new suspicious mass within the left breast. Particularly within the right breast. Round asymmetry demonstrated within the lateral right breast only on the CC view at middle depth. Overall Assessment: Incomplete: need additional imaging evaluation, BI-RAD 0 Management: Diagnostic Mammogram of the right breast. A clinical breast exam by your physician is recommended on an annual basis and results should be correlated with mammographic findings. [facility] will attempt to contact patient to return for supplemental views and ultrasound if indicated. Note on Faye scores and lifetime risk: 1. A Faye score greater than 3% is considered moderate risk. If this is the case, consider specialist referral to assess eligibility for a risk reducing agent. If overall lifetime risk for the development of breast cancer is 20% or higher, the patient may qualify for future screening with alternating mammogram and breast MRI. Electronically signed and approved by: Micha Hill D.O.
== END | disposition home or self-care (01) ==
LOC: RADMAMWWP 07:08
PROVIDERS: ATTEND Family Medicine
DX: Z12.31 Encounter for screening mammogram for malignant neoplasm of breast (principal); Z80.3 Family history of malignant neoplasm of breast
CPT/HCPCS: 77063; 77067

== ENCOUNTER → 2023-08-12 | Outpatient (CLI) | payer MEDICAID ==
--- NOTE | 2023-08-12 15:20 | MM ---
Reason for Exam: Additional evaluation requested from abnormal screening. Last screening mammogram was performed less than 1 month ago. Patient History: Menarche at age 6. First Full-Term at age 29. Late child-bearing (after 30). Patient used Hormonal Contraceptives for 25 years. 01/10/2018, Benign Core Biopsy on the right side. Paternal grandmother had breast cancer. Maternal grandmother had breast cancer at or over age 50. Maternal aunt had breast cancer under age 50. Maternal aunt had breast cancer under age 50. Mother had breast cancer at or over age 50. Risk Values: Faye 5 year model risk: 2.9%. NCI Lifetime model risk: 23.8%. Tissue Density: Right: There are scattered fibroglandular densities. Findings: Analyzed By CAD. 3 mm asymmetry seen on one view the right CC only approximate 10 cm from the nipple. Overall Assessment: Probably benign, BI-RAD 3 Management: Diagnostic Mammogram of the right breast in 6 months. Results were given to the patient verbally at the time of exam. Patient should continue monthly self-breast exams. A clinical breast exam by your physician is recommended on an annual basis. This exam should not preclude additional follow-up of suspicious palpable abnormalities. Note on Faye scores and lifetime risk: 1. A Faye score greater than 3% is considered moderate risk. If this is the case, consider specialist referral to assess eligibility for a risk reducing agent. 2. If overall lifetime risk for the development of breast cancer is 20% or higher, the patient may qualify for future screening with alternating mammogram and breast MRI. Electronically signed and approved by: Waldo Cheung DO
== END | disposition home or self-care (01) ==
LOC: RADMAMWWP 14:56
PROVIDERS: ATTEND Family Medicine
DX: R92.321 Mammographic fibroglandular density, right breast (principal); Z80.3 Family history of malignant neoplasm of breast
CPT/HCPCS: 77061; 77065

== ENCOUNTER → 2023-11-25 | Outpatient (CLI) | payer MEDICAID | END | disposition home or self-care (01) | LOC: LABWHC1 07:01 | PROVIDERS: ATTEND Family Medicine | DX: E66.01 Morbid (severe) obesity due to excess calories (principal) | CPT/HCPCS: 36415; 82947; 83036 ==

== ENCOUNTER 2024-01-29 22:46 | Emergency (ER) | payer MEDICAID ==
[2024-01-29] MEDS: KETOROLAC 15 MG/ML 1 ML VIAL IVP STA (23:17)
[2024-01-29] MEDS: PROCHLORPERAZINE INJ 10 MG/2 ML VIAL IVP STA (23:17)
[2024-01-29] MEDS: SODIUM CHLORIDE 0.9% 1,000 ML IV STA (23:17)
[2024-01-29] MEDS: MORPHINE SULFATE 4 MG/ML SYRINGE IV STA (23:18)
[2024-01-29 23:23] VITALS: TEMP 97.3
--- NOTE | 2024-01-29 23:24 | ED ---
Abdominal Pain HPI - General Chief Complaint: Abdominal Pain Stated Complaint: Abd pain Time Seen by Provider: 01/29/24 22:47 Source: EMS, RN notes reviewed, old records reviewed Mode of arrival: EMS Limitations: no limitations - History of Present Illness Initial Comments: This is a 43-year-old female to the ER for evaluation. Patient [place] for juan f luation of sudden onset abdominal pain that started tonight after playing softball. Patient's pain does seem to be pelvic related with history of kidney stones and ovarian, menses issues MD Complaint: abdominal pain, flank pain -: days(s) Location: diffuse, epigastric, suprapubic Radiation: epigastric, suprapubic Migration to: suprapubic Severity: moderate Severity scale (1-10): 7 Quality: sharp Consistency: constant Improves With: nothing Worsens With: nothing Associated Symptoms: nausea, vomiting Treatments Prior to Arrival: NSAIDs - Related Data Home Medications Medication Instructions Recorded Confirmed HYDROcodone/APAP 7.5-325MG [[place] 1 tab PO BID PRN 01/09/18 10/28/20 7.5-325] Amitriptyline HCl [Elavil] 20 mg PO HS 09/29/20 10/28/20 Baclofen [Lioresal] 10 mg PO BID PRN 09/29/20 10/28/20 Butalb/Acetaminophen/Caffeine 1 cap PO Q4H PRN 09/29/20 10/28/20 [Fioricet 50-300-40 mg Capsule] ALPRAZolam [Xanax] 0.5 mg PO BID 10/24/20 10/28/20 Hydrocortisone 10 mg PO BID 10/24/20 10/28/20 Previous Rx's Medication Instructions Recorded Benzonatate [Tessalon Perle] 200 mg PO TID #30 capsule 09/28/22 Allergies Allergy/AdvReac Type Severity Reaction Status Date / Time adhesive Allergy Itching, Verified 03/07/22 02:00 REDNESS, BLISTERS propoxyphene Allergy Rash/Hives Verified 03/07/22 02:00 [From Darvocet-N] promethazine HCl AdvReac Hallucinati Verified 03/07/22 02:00 [From Phenergan] ons Review of Systems ROS Statement: Those systems with pertinent positive or pertinent negative responses have been documented in the HPI. ROS Other: All systems not noted in ROS Statement are negative. Past Medical History Past Medical History: Hearing Disorder / Deafness Additional Past Medical History / Comment(s): rt ear deafness, migraines, kidney stones History of Any Multi-Drug Resistant Organisms: None Reported Past Surgical History: Section, Cholecystectomy, Tonsillectomy, Tubal Ligation Additional Past Surgical History / Comment(s): x2, rt breast bx-neg Past Anesthesia/Blood Transfusion Reactions: No Reported Reaction Past Psychological History: No Psychological Hx Reported Smoking Status: Never smoker Past Alcohol Use History: None Reported Past Drug Use History: None Reported - Past Family History Mother Family Medical History: Cancer Additional Family Medical History / Comment(s): Breast cancer. Father Family Medical History: Coronary Artery Disease (CAD), Vascular Disorder Additional Family Medical History / Comment(s): born with only 1 kidney and had dillan leg anuerysms General Exam General appearance: alert, in no apparent distress Head exam: Present: atraumatic, normocephalic, normal inspection Eye exam: Present: normal appearance, PERRL, EOMI. Absent: scleral icterus, conjunctival injection, periorbital swelling ENT exam: Present: normal exam, mucous membranes moist Neck exam: Present: normal inspection. Absent: tenderness, meningismus, lymphadenopathy Respiratory exam: Present: normal lung sounds bilaterally. Absent: respiratory distress, wheezes, rales, rhonchi, stridor Cardiovascular Exam: Present: regular rate, normal rhythm, normal heart sounds. Absent: systolic murmur, diastolic murmur, rubs, gallop, clicks GI/Abdominal exam: Present: soft, normal bowel sounds. Absent: distended, tenderness, guarding, rebound, rigid Extremities exam: Present: normal inspection, full ROM, normal capillary refill. Absent: tenderness, pedal edema, joint swelling, calf tenderness Back exam: Present: normal inspection Neurological exam: Present: alert, oriented X3, CN II-XII intact Psychiatric exam: Present: normal affect, normal mood Skin exam: Present: warm, dry, intact, normal color. Absent: rash Course Vital Signs 01/29/24 01/30/24 01/30/24 22:47 01:59 03:09 Temperature 97.3 F L Pulse Rate 76 64 77 Respiratory 16 18 18 Rate Blood Pressure 133/90 94/55 118/73 O2 Sat by Pulse 97 96 95 Oximetry - Reevaluation(s) Reevaluation #1: 01/29/24 23:37 Medical records reviewed Reevaluation #2: Patient symptoms are improved here in the ER Reevaluation #3: Patient informed of results questions answered Reevaluation #4: Was pt. sent in by a medical professional or institution ([facility], [facility], urgent care, hospital, or usp...) When possible be specific @ -no Did you speak to anyone other than the patient for history (EMS, parent, family, police, friend...)? What history was obtained from this source @ -no Did you review nursing and triage notes (agree or disagree)? Why? @ -agree Are old charts reviewed (outside hosp., previous admission, EMS record, old EKG, old radiological studies, urgent care reports/EKG's, usp records)? Report findings @ -yes Differential Diagnosis (chest pain, altered mental status, abdominal pain women, abdominal pain men, vaginal bleeding, weakness, fever, dyspnea, syncope, headache, dizziness, GI bleed, back pain, seizure, CVA, palpatations, mental health, musculoskeletal)? @ -prior EKG interpreted by me (3pts min.). @ -no X-rays interpreted by me (1pt min.). @ -no CT interpreted by me (1pt min.). @ -yes negative for acute disease U/S interpreted by me (1pt. min.). @ -no What testing was considered but not performed or refused? (CT, X-rays, U/S, labs)? Why? @ -none What meds were considered but not given or refused? Why? @ -none Did you discuss the management of the patient with other professionals (professionals i.e. BERN[facility] Rodriguez, [facility], lab, RT, psych nurse, public health social worker, title search manager, teacher, labor relations officer, manager ccu)? Give summary @ -no Was smoking cessation discussed for >3mins.? @ -no Was critical care preformed (if so, how long)? @ -no Were there social determinants of health that impacted care today? How? (Homelessness, low income, unemployed, alcoholism, drug addiction, transportation, low edu. Level, literacy, decrease access to med. care, fci, rehab)? @ -none Was there de-escalation of care discussed even if they declined (Discuss DNR or withdrawal of care, Hospice)? DNR status @ -no What co-morbidities impacted this encounter? (DM, HTN, Smoking, COPD, CAD, Cancer, CVA, ARF, Chemo, Hep., AIDS, mental health diagnosis, sleep apnea, morbid obesity)? @ -none Was patient admitted / discharged? Hospital course, mention meds given and route, prescriptions, significant lab abnormalities, going to OR and other pertinent info. @ - 43 female with intractable pain intractable abdominal pain with nausea vomiting although symptoms are improved and resolved here in the ER patient feels well and can be discharged home Discharge Undiagnosed new problem with uncertain prognosis? @ -no Drug Therapy requiring intensive monitoring for toxicity (Heparin, Nitro, Insulin, Cardizem)? @ -no Were any procedures done? @ -no Diagnosis/symptom? @ -Abdominal pain Acute, or Chronic, or Acute on Chronic? @ -Acute Uncomplicated (without systemic symptoms) or Complicated (systemic symptoms)? @ -Complicated Side effects of treatment? @ -no Exacerbation, Progression, or Severe Exacerbation? @ -exacerbation Poses a threat to life or bodily function? How? (Chest pain, [place], [place], pneumonia, PE, COPD, DKA, ARF, appy, cholecystitis, CVA, Diverticulitis, Homicidal, Suicidal, threat to staff... and all critical care pts) @ -no Reevaluation #5: Differential Abdominal Pain Women: Appendicitis, Cholecystitis, diverticulosis, ischemic bowel, pancreatitis, hepatitis, UTI, gastroenteritis, AAA, incarcerated hernia, bowel obstruction, constipation, inflammatory bowel, hepatitis, peptic ulcer disease, splenic infarction, perforated viscus, vulvitis, ovarian torsion, PID, kidney stone, placenta abruption, this is not meant to be an all-inclusive list Medical Decision Making - Medical Decision Making 43 female with intractable pain intractable abdominal pain with nausea vomiting although symptoms are improved and resolved here in the ER patient feels well and can be discharged home - Lab Data Result diagrams: 01/29/24 23:21 01/29/24 23:21 Lab Results 01/29/24 01/29/24 01/29/24 Range/Units 23:21 23:21 23:21 WBC 7.8 (3.8-10.6) k/uL RBC 4.18 (3.80-5.40) m/uL Hgb 13.2 (11.4-16.0) gm/dL Hct 39.1 (34.0-46.0) % MCV 93.6 (80.0-100.0) fL MCH 31.5 (25.0-35.0) pg MCHC 33.6 (31.0-37.0) g/dL RDW 13.3 (11.5-15.5) % Plt Count 206 (150-450) k/uL MPV 6.8 Neutrophils % 70 % Lymphocytes % 23 % Monocytes % 4 % Eosinophils % 1 % Basophils % 1 % Neutrophils # 5.4 (1.3-7.7) k/uL Lymphocytes # 1.8 (1.0-4.8) k/uL Monocytes # 0.3 (0-1.0) k/uL Eosinophils # 0.1 (0-0.7) k/uL Basophils # 0.1 (0-0.2) k/uL PT 10.4 (10.0-12.5) sec INR 0.9 (<1.2) APTT 22.3 (22.0-30.0) sec Sodium 137 (137-145) mmol/L Potassium 4.0 (3.5-5.1) mmol/L Chloride 107 (98-107) mmol/L Carbon Dioxide 26 (22-30) mmol/L Anion Gap 4 mmol/L BUN 21 H (7-17) mg/dL Creatinine 0.62 (0.52-1.04) mg/dL Est GFR (CKD-EPI)AfAm >90 (>60 ml/min/1.73 sqM) Est GFR (CKD-EPI)NonAf >90 (>60 ml/min/1.73 sqM) Glucose 96 (74-99) mg/dL Plasma Lactic Acid [place] (0.7-2.0) mmol/L Calcium 9.0 (8.4-10.2) mg/dL Total Bilirubin 0.2 (0.2-1.3) mg/dL AST 18 (14-36) U/L ALT 20 (4-34) U/L Alkaline Phosphatase 59 (38-126) U/L Troponin I (0.000-0.034) ng/mL Total Protein 6.1 L (6.3-8.2) g/dL Albumin 3.6 (3.5-5.0) g/dL 01/29/24 01/29/24 Range/Units 23:21 23:21 WBC (3.8-10.6) k/uL RBC (3.80-5.40) m/uL Hgb (11.4-16.0) gm/dL Hct (34.0-46.0) % MCV (80.0-100.0) fL MCH (25.0-35.0) pg MCHC (31.0-37.0) g/dL RDW (11.5-15.5) % Plt Count (150-450) k/uL MPV Neutrophils % % Lymphocytes % % Monocytes % % Eosinophils % % Basophils % % Neutrophils # (1.3-7.7) k/uL Lymphocytes # (1.0-4.8) k/uL Monocytes # (0-1.0) k/uL Eosinophils # (0-0.7) k/uL Basophils # (0-0.2) k/uL PT (10.0-12.5) sec INR (<1.2) APTT (22.0-30.0) sec Sodium (137-145) mmol/L Potassium (3.5-5.1) mmol/L Chloride (98-107) mmol/L Carbon Dioxide (22-30) mmol/L Anion Gap mmol/L BUN (7-17) mg/dL Creatinine (0.52-1.04) mg/dL Est GFR (CKD-EPI)AfAm (>60 ml/min/1.73 sqM) Est GFR (CKD-EPI)NonAf (>60 ml/min/1.73 sqM) Glucose (74-99) mg/dL Plasma Lactic Acid [place] 1.1 (0.7-2.0) mmol/L Calcium (8.4-10.2) mg/dL Total Bilirubin (0.2-1.3) mg/dL AST (14-36) U/L ALT (4-34) U/L Alkaline Phosphatase (38-126) U/L Troponin I <0.012 (0.000-0.034) ng/mL Total Protein (6.3-8.2) g/dL Albumin (3.5-5.0) g/dL - Radiology Data Radiology results: report reviewed (CT abdomen pelvis is negative for acute disease), image reviewed Disposition Clinical Impression: Intractable pain, Nausea and vomiting, Morbid obesity Disposition: HOME SELF-CARE Condition: Good Instructions (If sedation given, give patient instructions): Chronic Abdominal Pain (ED) Is patient prescribed a controlled substance at d/c from ED?: No Referrals: Tahir Toney [Primary Care Provider] - 1-2 days Time of Disposition: 03:00
[2024-01-29 23:56] LABS: INR 0.9 (<1.2); Partial Thromboplastin Time 22.3 sec (22.0-30.0); Prothrombin Time 10.4 sec (10.0-12.5)
[2024-01-30 00:12] LABS: ALT 20 U/L (4-34); AST 18 U/L (14-36); African American GFR (CKD) >90 (>60 ml/min/1.73 sqM); Albumin 3.6 g/dL (3.5-5.0); Alkaline Phosphatase 59 U/L (38-126); Anion Gap 4 mmol/L; Blood Urea Nitrogen 21 mg/dL (7-17); Carbon Dioxide 26 mmol/L (22-30); Chloride 107 mmol/L (98-107); Glucose 96 mg/dL (74-99); Non-African American GFR(CKD) >90 (>60 ml/min/1.73 sqM); Sodium 137 mmol/L (137-145); Total Bilirubin 0.2 mg/dL (0.2-1.3); Total Protein 6.1 g/dL (6.3-8.2)
[2024-01-30 00:28] LABS: Basophils # (A) 0.1 k/uL (0-0.2); Basophils % (A) 1 %; Eosinophils # (A) 0.1 k/uL (0-0.7); Eosinophils % (A) 1 %; HCT 39.1 % (34.0-46.0); HGB 13.2 gm/dL (11.4-16.0); Lymphocytes # (A) 1.8 k/uL (1.0-4.8); Lymphocytes % (A) 23 %; MCH 31.5 pg (25.0-35.0); MCHC 33.6 g/dL (31.0-37.0); MCV 93.6 fL (80.0-100.0); Mean Platelet Volume 6.8; Monocytes # (A) 0.3 k/uL (0-1.0); Monocytes % (A) 4 %; Neutrophils # (A) 5.4 k/uL (1.3-7.7); Neutrophils % (A) 70 %; Platelet Count 206 k/uL (150-450); RBC 4.18 m/uL (3.80-5.40); RDW 13.3 % (11.5-15.5); WBC 7.8 k/uL (3.8-10.6)
--- NOTE | 2024-01-30 01:11 | CT ---
EXAM: CT Abdomen and Pelvis Without Intravenous Contrast CLINICAL HISTORY: ITS.REASON CT Reason: pain TECHNIQUE: Axial computed tomography images of the abdomen and pelvis without intravenous contrast. CTDI is 24.7 mGy and DLP is 1385 mGy-cm. This CT exam was performed using one or more of the following dose reduction techniques: automated exposure control, adjustment of the mA and/or kV according to patient size, and/or use of iterative reconstruction technique. COMPARISON: 03/07/2022 FINDINGS: Lung bases: Unremarkable. No mass. No consolidation. ABDOMEN: Liver: Unremarkable. Gallbladder and bile ducts: Postoperative changes prior cholecystectomy. No ductal dilation. Pancreas: Unremarkable. No ductal dilation. Spleen: Unremarkable. No splenomegaly. Adrenals: Unremarkable. No mass. Kidneys and ureters: Nonobstructing left lower pole intrarenal calculi. Stomach and bowel: Unremarkable. No obstruction. No mucosal thickening. PELVIS: Appendix: Normal appearing appendix. Bladder: Unremarkable. No stones. Reproductive: Unremarkable as visualized. ABDOMEN and PELVIS: Intraperitoneal space: Unremarkable. No free air. No significant fluid collection. Bones/joints: No acute fracture. No dislocation. Soft tissues: Unremarkable. Vasculature: Unremarkable. No abdominal aortic aneurysm. Lymph nodes: Unremarkable. No enlarged lymph nodes. IMPRESSION: No acute findings in the abdomen or pelvis. Nonobstructing left lower pole intrarenal calculus Postoperative changes prior cholecystectomy
[2024-01-30] MEDS: HYDROmorphone 1 MG/ML 1 ML SYRINGE IVP STA (01:55)
[2024-01-30] MEDS: SODIUM CHLORIDE 0.9% 1,000 ML IV STA (01:56)
[2024-01-30 02:38] VITALS: RESP 18
[2024-01-30 03:21] VITALS: BP 118/73; PULSE 77
== END 2024-01-30 03:13 | disposition home or self-care (01) ==
LOC: EC 22:46
DX: R10.84 Generalized abdominal pain (principal); R11.2 Nausea with vomiting, unspecified; E66.01 Morbid (severe) obesity due to excess calories; Z91.048 Other nonmedicinal substance allergy status; Z88.8 Allergy status to other drugs, medicaments and biological substances; Z90.49 Acquired absence of other specified parts of digestive tract; Z68.41 Body mass index [BMI] 40.0-44.9, adult
CPT/HCPCS: 99285; 96374; 96375 ×2; 96361 ×2; 96376; 36415; 80053; 83605; 84484; 85025; 85610; 85730; 74176; J2270; J0780; J1170; J1885

== ENCOUNTER → 2024-02-15 | Outpatient (CLI) | payer MEDICAID ==
--- NOTE | 2024-02-15 07:32 | MM ---
Reason for Exam: Follow-up at short interval from prior study. Last screening mammogram was performed 6 month(s) ago. Patient History: Menarche at age 6. First Full-Term at age 29. Late child-bearing (after 30). Patient has history of breast feeding. Patient used Hormonal Contraceptives for 25 years. 01/10/2018, Benign Core Biopsy on the right side. Paternal grandmother had breast cancer. Maternal grandmother had breast cancer at or over age 50. Maternal aunt had breast cancer under age 50. Maternal aunt had breast cancer under age 50. Mother had breast cancer at or over age 50. Risk Values: Faye 5 year model risk: 2.9%. NCI Lifetime model risk: 23.8%. Prior Study Comparison: 02/18/2022 Bilateral MG 3D screening mammo w/cad, [facility]. 08/05/2023 Bilateral MG 3D screening mammo w/cad, [facility]. 08/12/2023 Right MG 3D work up w/cad RT, [facility]. Tissue Density: Right: There are scattered areas of fibroglandular density. Findings: Analyzed By CAD. The pattern is symmetrical. There may be faint visualization of the previous nodular type density outer right breast. There is a new density within the subareolar medial right breast on craniocaudal projection. This may been present on one of the previous exam comparisons. Compression view over this area appears to largely subtle residual. No suspicious abnormality on the MLO view. Short-term follow-up in 6 months is recommended. No suspicious groups of microcalcifications, spiculated or lobular masses, architectural distortion or other secondary signs of malignancy are mammographically apparent. Overall Assessment: Probably benign, BI-RAD 3 Management: Diagnostic Mammogram of both breasts in 6 months. A negative mammogram report should not preclude additional follow up of suspicious palpable abnormalities. Patient should continue monthly self breast exam. A clinical breast exam by your physician is recommended on an annual basis and results should be correlated with mammographic findings. Note on Faye scores and lifetime risk: 1. A Faye score greater than 3% is considered moderate risk. If this is the case, consider specialist referral to assess eligibility for a risk reducing agent. 2. If overall lifetime risk for the development of breast cancer is 20% or higher, the patient may qualify for future screening with alternating mammogram and breast MRI. Electronically signed and approved by: Luca Poole D.O. Radiologis
[2024-02-15 10:35] LABS: Basophils # (A) 0.04 X 10*3/uL (0.00-0.10); Basophils % (A) 0.7 %; Eosinophils # (A) 0.14 X 10*3/uL (0.04-0.35); Eosinophils % (A) 2.4 %; HCT 39.7 % (37.2-46.3); HGB 13.3 g/dL (12.0-15.0); Lymphocytes # (A) 1.94 X 10*3/uL (0.90-5.00); Lymphocytes % (A) 33.7 %; MCH 31.1 pg (27.0-32.0); MCHC 33.5 g/dL (32.0-37.0); Mean Platelet Volume 8.8 FL (9.5-12.2); Monocytes # (A) 0.46 X 10*3/uL (0.20-1.00); NRBC Per 100 WBC 0 X 10*3/uL (0.00-0.01); Neutrophils # (A) 3.16 X 10*3/uL (1.80-7.70); Neutrophils % (A) 54.9 %; Platelet Count 204 X 10*3/uL (140-440); RBC 4.27 X 10*6/uL (4.10-5.20); WBC 5.76 X 10*3/uL (4.50-10.00)
[2024-02-15 11:23] LABS: Chol/HDL Ratio 2.91 Ratio; LDL Cholesterol,Calculated 102.8 mg/dL (0.0-131.0); VLDL Calculation 13.34 mg/dL (5.00-40.00)
[2024-02-15 11:24] LABS: ALT 18 U/L (8-44); AST 12 U/L (13-35); Albumin 4.2 g/dL (3.8-4.9); Albumin/Globulin Ratio 1.91 Ratio (1.60-3.17); Alkaline Phosphatase 65 U/L (41-126); BUN/Creat Ratio 23.29 Ratio (12.00-20.00); Blood Urea Nitrogen 16.3 mg/dL (9.0-27.0); Calcium 9.3 mg/dL (8.7-10.3); Carbon Dioxide 27.9 mmol/L (21.6-31.8); Chloride 104 mmol/L (96-109); Globulin 2.2 g/dL (1.6-3.3); Glucose 77 mg/dL (70-110); Potassium 3.8 mmol/L (3.5-5.5); Sodium 142 mmol/L (135-145); Total Bilirubin <0.2 mg/dL (0.3-1.2); Total Protein 6.4 g/dL (6.2-8.2)
== END | disposition home or self-care (01) ==
LOC: RADMAMWWP 07:00
PROVIDERS: ATTEND Family Medicine
DX: Z00.00 Encounter for general adult medical examination without abnormal findings (principal); R92.321 Mammographic fibroglandular density, right breast; F41.9 Anxiety disorder, unspecified; E55.9 Vitamin D deficiency, unspecified; Z80.3 Family history of malignant neoplasm of breast
CPT/HCPCS: 77061; 77065; 80053; 80061; 82306; 84443; 85025

== ENCOUNTER 2024-07-30 06:41 | Emergency (ER) | payer MEDICAID ==
[2024-07-30 06:48] VITALS: RESP 18; TEMP 98.7
--- NOTE | 2024-07-30 07:24 | ED ---
General Adult HPI - General Chief complaint: Upper Respiratory Infection Stated complaint: Bladder Incontinence Time Seen by Provider: 07/30/24 07:02 Source: patient, RN notes reviewed, old records reviewed Mode of arrival: ambulatory Limitations: no limitations - History of Present Illness Initial comments: 44 yo female presenting with cough congestion, fever. Symptoms have been present for approximately 1 week. She states that several family members have similar symptoms including diagnosis of pneumonia. Patient denies prior history of asthma or COPD. Additionally she states that she began having urinary incontinence with cough which has progressed. She is unable to follow-up with her primary care provider at this time and has contacted urology for evaluation. - Related Data Home Medications Medication Instructions Recorded Confirmed HYDROcodone/APAP 7.5-325MG [[place] 1 tab PO BID PRN 01/09/18 07/30/24 7.5-325] ALPRAZolam [Xanax] 0.5 mg PO BID PRN 10/24/20 07/30/24 Amitriptyline HCl [Elavil] 100 mg PO HS 07/30/24 07/30/24 Ascorbic Acid [Vitamin C] 1,000 mg PO DAILY 07/30/24 07/30/24 Cholecalciferol (Vitamin D3) 750 mcg PO MO 07/30/24 07/30/24 [Vitamin D3 (125 MCG = 5,000 IU)] Cholecalciferol (Vitamin D3) 50 mcg PO DAILY 07/30/24 07/30/24 [Vitamin D3 (50 Mcg = 2000 Iu)] Ferrous Sulfate [Feosol] 325 mg PO DAILY 07/30/24 07/30/24 Folic Acid 0.8 mg PO DAILY 07/30/24 07/30/24 Furosemide [Lasix] 20 mg PO DAILY 07/30/24 07/30/24 Rimegepant Sulfate [Nurtec Odt] 75 mg SL DAILY PRN MDD 75mg 07/30/24 07/30/24 Spironolactone [Aldactone] 25 mg PO DAILY 07/30/24 07/30/24 Vitamin B Complex 1 cap PO DAILY 07/30/24 07/30/24 Previous Rx's Medication Instructions Recorded Albuterol Inhaler [Ventolin Hfa 1 - 2 puff INHALATION Q4HR PRN #1 07/30/24 Inhaler] each Azithromycin [Zithromax Z Pack] 1 tab PO DIRECTED #6 tab 07/30/24 Fluconazole [Diflucan] 150 mg PO ONCE #2 tab 07/30/24 Allergies Allergy/AdvReac Type Severity Reaction Status Date / Time adhesive Allergy Itching, Verified 07/30/24 10:11 REDNESS, BLISTERS propoxyphene Allergy Rash/Hives Verified 07/30/24 10:11 [From Darvocet-N] promethazine HCl AdvReac Hallucinati Verified 07/30/24 10:11 [From Phenergan] ons Review of Systems ROS Statement: Those systems with pertinent positive or pertinent negative responses have been documented in the HPI. ROS Other: All systems not noted in ROS Statement are negative. Past Medical History Past Medical History: Hearing Disorder / Deafness Additional Past Medical History / Comment(s): rt ear deafness, migraines, kidney stones History of Any Multi-Drug Resistant Organisms: None Reported Past Surgical History: Section, Cholecystectomy, Tonsillectomy, Tubal Ligation Additional Past Surgical History / Comment(s): x2, rt breast bx-neg Past Anesthesia/Blood Transfusion Reactions: No Reported Reaction Past Psychological History: No Psychological Hx Reported Smoking Status: Never smoker Past Alcohol Use History: None Reported Past Drug Use History: None Reported - Past Family History Mother Family Medical History: Cancer Additional Family Medical History / Comment(s): Breast cancer. Father Family Medical History: Coronary Artery Disease (CAD), Vascular Disorder Additional Family Medical History / Comment(s): born with only 1 kidney and had dillan leg anuerysms General Exam Limitations: no limitations General appearance: alert, in no apparent distress Head exam: Present: atraumatic, normocephalic ENT exam: Present: other (Nasal congestion). Absent: normal oropharynx (Pharyngeal erythema) Respiratory exam: Present: rhonchi, other (Bronchospastic cough). Absent: respiratory distress Cardiovascular Exam: Present: regular rate, normal rhythm Neurological exam: Present: alert, oriented X3 Psychiatric exam: Present: normal affect, normal mood Skin exam: Present: warm, dry, intact Course Vital Signs 07/30/24 07/30/24 06:44 09:29 Temperature 98.7 F Pulse Rate 98 85 Respiratory 18 18 Rate Blood Pressure 141/90 120/73 O2 Sat by Pulse 96 98 Oximetry Medical Decision Making - Medical Decision Making Was pt. sent in by a medical professional or institution (BERNCIE Rodriguez, [employer], urgent care, hospital, or fpc...) When possible be specific @ -No Did you speak to anyone other than the patient for history (EMS, parent, family, police, friend...)? What history was obtained from this source @ -No Did you review nursing and triage notes (agree or disagree)? Why? @ -I reviewed and agree with nursing and triage notes Were old charts reviewed (outside hosp., previous admission, EMS record, old EKG, old radiological studies, urgent care reports/EKG's, fpc records)? Report findings @ -No old charts were reviewed Differential Diagnosis (pneumonia, bronchitis, upper respiratory infection, UTI EKG interpreted by me (3pts min.). @ -As above X-rays interpreted by me (1pt min.). @ -Chest x-ray showing right middle lobe pneumonia CT interpreted by me (1pt min.). @ -[CT abdomen pelvis without acute intra-abdominal abnormality U/S interpreted by me (1pt. min.). @ -None done What testing was considered but not performed or refused? (CT, X-rays, U/S, labs)? Why? @ -None What meds were considered but not given or refused? Why? @ -None Did you discuss the management of the patient with other professionals (professionals i.e. BERNICE Rodriguez, [employer]TER, lab, RT, psych nurse, social sciences department chair, manager editorial, teacher, privacy officer, block and case maker)? Give summary @ -No Was smoking cessation discussed for >3mins.? @ -No Was critical care preformed (if so, how long)? @ -No Were there social determinants of health that impacted care today? How? (Homelessness, low income, unemployed, alcoholism, drug addiction, transportation, low edu. Level, literacy, decrease access to med. care, correction, rehab)? @ -No Was there de-escalation of care discussed even if they declined (Discuss DNR or withdrawal of care, Hospice)? DNR status @ -No What co-morbidities impacted this encounter? (DM, HTN, Smoking, COPD, CAD, Cancer, CVA, ARF, Chemo, Hep., AIDS, mental health diagnosis, sleep apnea, morbid obesity)? @ -None Was patient admitted / discharged? Hospital course, mention meds given and route, prescriptions, significant lab abnormalities, going to OR and other pertinent info. @ -44-year-old female with 2 complaints, 1 cough, congestion, fever. second complaint of urinary incontinence. Regarding her cough. Patient does have known sick contacts and does have pneumonia on x-ray. Given antibiotics and steroids for bronchospastic cough. Stable for discharge with regards to her pneumonia. Regarding her urinary incontinence. CT shows decompressed bladder. History is suggestive of a stress incontinence given the recent onset and significant cough. The patient was able to obtain an appointment with the urologist today and I did discuss the case with Dr. Margie vargas for urology, felt that this is stress incontinence and agreeable with outpatient workup. Patient will be prescribed albuterol, azithromycin for her pneumonia. Undiagnosed new problem with uncertain prognosis? @ -No Drug Therapy requiring intensive monitoring for toxicity (Heparin, Nitro, Insulin, Cardizem)? @ -No Were any procedures done? @ -No Diagnosis/symptom? @ -Pneumonia, urinary incontinence Acute, or Chronic, or Acute on Chronic? @ -[ acute Uncomplicated (without systemic symptoms) or Complicated (systemic symptoms)? @ -Default Side effects of treatment? @ -No Exacerbation, Progression, or Severe Exacerbation? @ -No Poses a threat to life or bodily function? How? (Chest pain, [place], [place], pneumonia, PE, COPD, DKA, ARF, appy, cholecystitis, CVA, Diverticulitis, Homicidal, Suicidal, threat to staff... and all critical care pts) @ -Low risk at this time - Lab Data Result diagrams: 07/30/24 08:07 07/30/24 08:07 Lab Results 07/30/24 07/30/24 07/30/24 Range/Units 07:22 08:07 08:07 WBC 7.3 (3.8-10.6) k/uL RBC 4.53 (3.80-5.40) m/uL Hgb 14.0 (11.4-16.0) gm/dL Hct 41.2 (34.0-46.0) % MCV 91.0 (80.0-100.0) fL MCH 30.9 (25.0-35.0) pg MCHC 34.0 (31.0-37.0) g/dL RDW 13.1 (11.5-15.5) % Plt Count 261 (150-450) k/uL MPV 6.5 Neutrophils % 64 % Lymphocytes % 27 % Monocytes % 4 % Eosinophils % 3 % Basophils % 1 % Neutrophils # 4.6 (1.3-7.7) k/uL Lymphocytes # 1.9 (1.0-4.8) k/uL Monocytes # 0.3 (0-1.0) k/uL Eosinophils # 0.2 (0-0.7) k/uL Basophils # 0.1 (0-0.2) k/uL Sodium (137-145) mmol/L Potassium (3.5-5.1) mmol/L Chloride (98-107) mmol/L Carbon Dioxide (22-30) mmol/L Anion Gap mmol/L BUN (7-17) mg/dL Creatinine (0.52-1.04) mg/dL Est GFR (CKD-EPI)AfAm (>60 ml/min/1.73 sqM) Est GFR (CKD-EPI)NonAf (>60 ml/min/1.73 sqM) Glucose (74-99) mg/dL Calcium (8.4-10.2) mg/dL Total Bilirubin (0.2-1.3) mg/dL AST (14-36) U/L ALT (4-34) U/L Alkaline Phosphatase (38-126) U/L Total Protein (6.3-8.2) g/dL Albumin (3.5-5.0) g/dL Urine Color Light Yellow Urine Appearance Clear (Clear) Urine pH 6.5 (5.0-8.0) Ur Specific [place] 1.014 (1.001-1.035) Urine Protein Negative (Negative) Urine Glucose (UA) Negative (Negative) Urine Ketones Negative (Negative) Urine Blood Negative (Negative) Urine Nitrite Negative (Negative) Urine Bilirubin Negative (Negative) Urine Urobilinogen <2.0 (<2.0) mg/dL Ur Leukocyte Esterase Negative (Negative) Influenza Type A (PCR) Not Detected (Not Detectd) Influenza Type B (PCR) Not Detected (Not Detectd) RSV (PCR) Not Detected (Not Detectd) SARS-CoV-2 (PCR) Not Detected (Not Detectd) 07/30/24 Range/Units 08:07 WBC (3.8-10.6) k/uL RBC (3.80-5.40) m/uL Hgb (11.4-16.0) gm/dL Hct (34.0-46.0) % MCV (80.0-100.0) fL MCH (25.0-35.0) pg MCHC (31.0-37.0) g/dL RDW (11.5-15.5) % Plt Count (150-450) k/uL MPV Neutrophils % % Lymphocytes % % Monocytes % % Eosinophils % % Basophils % % Neutrophils # (1.3-7.7) k/uL Lymphocytes # (1.0-4.8) k/uL Monocytes # (0-1.0) k/uL Eosinophils # (0-0.7) k/uL Basophils # (0-0.2) k/uL Sodium 138 (137-145) mmol/L Potassium 3.9 (3.5-5.1) mmol/L Chloride 104 (98-107) mmol/L Carbon Dioxide 29 (22-30) mmol/L Anion Gap 5 mmol/L BUN 10 (7-17) mg/dL Creatinine 0.69 (0.52-1.04) mg/dL Est GFR (CKD-EPI)AfAm >90 (>60 ml/min/1.73 sqM) Est GFR (CKD-EPI)NonAf >90 (>60 ml/min/1.73 sqM) Glucose 90 (74-99) mg/dL Calcium 9.2 (8.4-10.2) mg/dL Total Bilirubin 0.4 (0.2-1.3) mg/dL AST 22 (14-36) U/L ALT 22 (4-34) U/L Alkaline Phosphatase 65 (38-126) U/L Total Protein 6.9 (6.3-8.2) g/dL Albumin 4.1 (3.5-5.0) g/dL Urine Color Urine Appearance (Clear) Urine pH (5.0-8.0) Ur Specific [place] (1.001-1.035) Urine Protein (Negative) Urine Glucose (UA) (Negative) Urine Ketones (Negative) Urine Blood (Negative) Urine Nitrite (Negative) Urine Bilirubin (Negative) Urine Urobilinogen (<2.0) mg/dL Ur Leukocyte Esterase (Negative) Influenza Type A (PCR) (Not Detectd) Influenza Type B (PCR) (Not Detectd) RSV (PCR) (Not Detectd) SARS-CoV-2 (PCR) (Not Detectd) Disposition Clinical Impression: Pneumonia, Urinary incontinence Disposition: HOME SELF-CARE Condition: Fair Instructions (If sedation given, give patient instructions): Bacterial Pneumonia (DC) Additional Instructions: Please take Diflucan after you have completed your antibiotics as needed for yeast infection Prescriptions: Fluconazole [Diflucan] 150 mg PO ONCE #2 tab Albuterol Inhaler [Ventolin Hfa Inhaler] 1 - 2 puff INHALATION Q4HR PRN #1 each PRN Reason: Shortness Of Breath Azithromycin [Zithromax Z Pack] 1 tab PO DIRECTED #6 tab Is patient prescribed a controlled substance at d/c from ED?: No Referrals: Tahir Toney [Primary Care Provider] - 1-2 days Kyle Flower MD [STAFF PHYSICIAN] - 1-2 days Time of Disposition: 10:45
--- NOTE | 2024-07-30 07:34 | XR ---
EXAMINATION TYPE: XR chest 2V DATE OF EXAM: 07/30/2024 7:26 AM COMPARISON: 01/02/2021 CLINICAL INDICATION: Female, 44 years old with history of cough, TECHNIQUE: XR chest 2V view(s) obtained. FINDINGS: The heart size is normal. The pulmonary vasculature is normal. Infiltrates in right mid lung. Correlate for atelectasis or pneumonia. Follow-up is recommended. IMPRESSION: 1. Right midlung infiltrate. Correlate for atelectasis or pneumonia. Follow-up to clearing is recomme lorne [facility], , 07/30/2024 7:31 AM
[2024-07-30] MEDS: ALBUTEROL HFA INHALER INHALATION STA (07:42)
[2024-07-30] MEDS: SODIUM CHLORIDE 0.9% 500 ML 500 ML IV ONE (08:14)
[2024-07-30 08:17] LABS: Basophils # (A) 0.1 k/uL (0-0.2); Basophils % (A) 1 %; Eosinophils # (A) 0.2 k/uL (0-0.7); Eosinophils % (A) 3 %; HCT 41.2 % (34.0-46.0); Lymphocytes # (A) 1.9 k/uL (1.0-4.8); Lymphocytes % (A) 27 %; MCH 30.9 pg (25.0-35.0); Mean Platelet Volume 6.5; Monocytes # (A) 0.3 k/uL (0-1.0); Monocytes % (A) 4 %; Neutrophils # (A) 4.6 k/uL (1.3-7.7); Neutrophils % (A) 64 %; Platelet Count 261 k/uL (150-450); RBC 4.53 m/uL (3.80-5.40); RDW 13.1 % (11.5-15.5); WBC 7.3 k/uL (3.8-10.6)
[2024-07-30 08:29] LABS: Appearance,Urine Clear (Clear); Bilirubin,Urine Negative (Negative); Blood,Urine Negative (Negative); Color,Urine Light Yellow; Glucose,Urine (UA) Negative (Negative); Ketones,Urine Negative (Negative); Leukocyte Esterase,Urine Negative (Negative); Nitrite,Urine Negative (Negative); PH, Urine 6.5 (5.0-8.0); Protein,Urine Negative (Negative); Specific Gravity,Urine 1.014 (1.001-1.035); Urobilinogen,Urine <2.0 mg/dL (<2.0)
[2024-07-30 08:40] LABS: ALT 22 U/L (4-34); AST 22 U/L (14-36); African American GFR (CKD) >90 (>60 ml/min/1.73 sqM); Albumin 4.1 g/dL (3.5-5.0); Alkaline Phosphatase 65 U/L (38-126); Anion Gap 5 mmol/L; Blood Urea Nitrogen 10 mg/dL (7-17); Calcium 9.2 mg/dL (8.4-10.2); Carbon Dioxide 29 mmol/L (22-30); Chloride 104 mmol/L (98-107); Glucose 90 mg/dL (74-99); Non-African American GFR(CKD) >90 (>60 ml/min/1.73 sqM); Potassium 3.9 mmol/L (3.5-5.1); Sodium 138 mmol/L (137-145); Total Bilirubin 0.4 mg/dL (0.2-1.3); Total Protein 6.9 g/dL (6.3-8.2)
[2024-07-30] MEDS: DEXAMETHASONE SOD PHOSPHATE 10 MG/ML 1 ML VIAL IV STA (09:26)
[2024-07-30 09:32] VITALS: BP 120/73; PULSE 85
[2024-07-30] MEDS: AZITHROMYCIN 500 MG in SODIUM CHLORIDE 0.9% 250 ML IVPB STA (10:04)
--- NOTE | 2024-07-30 10:11 | CT ---
EXAMINATION TYPE: CT abdomen pelvis w con DATE OF EXAM: 07/30/2024 9:20 AM COMPARISON: [id number] CLINICAL INDICATION: Female, 44 years old with history of pelvic pain/urinary incontinence, pelvic pa in TECHNIQUE: Axial images were obtained from above the diaphragm to the pubic rami in the axial plane a t 5 mm thick sections. Reconstructed images are reviewed on the computer in the coronal plane. CONTRAST: 100 mL of Isovue 300. Study performed without Oral Contrast DLP: 2375.3 mGycm, Automated exposure control for dose reduction was used. FINDINGS: Limited CT sections are obtained the lung bases. There is some mild infiltrate in the right middle l obe. Correlate for atelectasis. Pneumonia should be considered. Follow-up can be performed as clinica lly indicated.. CT ABDOMEN: Liver: Enlarged. Spleen: Normal Pancreas: Normal Adrenal glands: The adrenal glands are normal. Gallbladder: Surgically absent Kidneys: No masses are evident.. No hydronephrosis is present. No cysts are present. There is a no nobstructing 0.6 cm posterior mid to inferior left renal stone Aorta: Vascular calcification is within the aorta. Inferior vena cava: Normal. CT PELVIS: Loops of bowel within the abdomen and pelvis are normal. This study is without oral contrast limi ting follow-up evaluation. Appendix: Normal as visualized. Urinary bladder: Decompressed and cannot be evaluated. Genitourinary structures: Uterus appears normal. There is a 2.0 cm cyst on the right ovary. Left adne xa is normal. Osseous structures: No suspicious lytic or sclerotic lesions. IMPRESSION: 1. Hepatomegaly. 2. Nonobstructing left renal stone. 3. 2 cm right ovarian follicle. 4. Mild atelectasis within the right middle lobe. Mild pneumonia could be considered. [facility], , 07/30/2024 10:08 AM
== END 2024-07-30 11:14 | disposition home or self-care (01) ==
LOC: EC 06:41
DX: J18.9 Pneumonia, unspecified organism (principal); N20.0 Calculus of kidney; R32 Unspecified urinary incontinence; Z91.09 Other allergy status, other than to drugs and biological substances; Z88.8 Allergy status to other drugs, medicaments and biological substances
CPT/HCPCS: 36415; 94640; 80053; 85025; 81003; 87636; 71046; 74177; 99284; 96365; 96367; 96361; 96375; J1100; J0456; J0696; Q9967

== ENCOUNTER → 2025-04-25 | Outpatient (CLI) | payer MEDICAID ==
[2025-04-25 11:02] LABS: Basophils # (A) 0.06 X 10*3/uL (0.00-0.10); Basophils % (A) 0.9 %; Eosinophils # (A) 0.22 X 10*3/uL (0.04-0.35); Eosinophils % (A) 3.2 %; HCT 41.1 % (37.2-46.3); HGB 13.4 g/dL (12.0-15.0); Immature Grans, Automated 0.10 %; Lymphocytes # (A) 2.40 X 10*3/uL (0.90-5.00); Lymphocytes % (A) 35.3 %; MCH 30.2 pg (27.0-32.0); MCHC 32.6 g/dL (32.0-37.0); MCV 92.8 FL (80.0-97.0); Monocytes # (A) 0.45 X 10*3/uL (0.20-1.00); Monocytes % (A) 6.6 %; NRBC Per 100 WBC 0 X 10*3/uL (0.00-0.01); Neutrophils # (A) 3.65 X 10*3/uL (1.80-7.70); Neutrophils % (A) 53.9 %; Platelet Count 231 X 10*3/uL (140-440); RBC 4.43 X 10*6/uL (4.10-5.20); RDW 12.8 % (11.5-14.5); WBC 6.79 X 10*3/uL (4.50-10.00)
[2025-04-25 11:43] LABS: Cholesterol 174.00 mg/dL (0.00-200.00); HDL Cholesterol 46.20 mg/dL (40.00-60.00); LDL Cholesterol,Calculated 112.7 mg/dL (0.0-131.0); Triglycerides 75.30 mg/dL (0.00-149.00); VLDL Calculation 15.06 mg/dL (5.00-40.00)
[2025-04-25 11:44] LABS: ALT 21 U/L (8-44); AST 19 U/L (13-35); Albumin 3.9 g/dL (3.8-4.9); Albumin/Globulin Ratio 1.56 Ratio (1.60-3.17); Alkaline Phosphatase 68 U/L (41-126); Anion Gap 9.30 mmol/L (4.00-12.00); BUN/Creat Ratio 17.29 Ratio (12.00-20.00); Blood Urea Nitrogen 12.1 mg/dL (9.0-27.0); Calcium 8.9 mg/dL (8.7-10.3); Carbon Dioxide 24.7 mmol/L (21.6-31.8); Chloride 104 mmol/L (96-109); Globulin 2.5 g/dL (1.6-3.3); Glucose 86 mg/dL (70-110); Potassium 4.2 mmol/L (3.5-5.5); Sodium 138 mmol/L (135-145); Total Protein 6.4 g/dL (6.2-8.2)
== END | disposition home or self-care (01) ==
LOC: LABWHC1 06:44
PROVIDERS: ATTEND Family Medicine
DX: E55.9 Vitamin D deficiency, unspecified (principal); E66.01 Morbid (severe) obesity due to excess calories; Z68.42 Body mass index [BMI] 45.0-49.9, adult; R53.83 Other fatigue
CPT/HCPCS: 36415; 80053; 80061; 82306; 83036; 84443; 85025